=== PATIENT | female | born 1940 | race Caucasian/White ===

== ENCOUNTER 2020-03-12 09:35 | Emergency (ER) | payer OTHER ==
[2020-03-12] MEDS ORDERED: IPRATROPIUM BROM 0.5MG/2.5ML ONE ×2 (10:32→12:19)
[2020-03-12] MEDS ORDERED: METHYLPREDNISOLONE 125 MG INJ ONE (10:32)
[2020-03-12] MEDS ORDERED: LEVALBUTEROL 1.25 MG/3 ML NEB ONE (10:33)
--- NOTE | 2020-03-12 10:54 | RAD REPORT ---
EXAM DESCRIPTION: RAD - Chest Single View - 03/12/2020 10:34 am CLINICAL HISTORY: Cough;Dyspnea COMPARISON: July 2016 TECHNIQUE: AP portable chest image was obtained 03/12/2020 10:34 am . FINDINGS: No focal lung parenchymal process. Interstitial pattern matches comparison. Heart and vasc ulature are normal. No measurable pleural effusion and no pneumothorax. No acute bony abnormality see n. No acute aortic findings suspected. IMPRESSION: No acute cardiopulmonary process. No significant interval change.
[2020-03-12 12:49] LABS: Absolute Lymphocytes (CBC) 1.4 K/uL (0.7-4.9); Basophils % 1.2 % (0-1.3); Hematocrit 39.9 % (36.0-45.0); Lymphocytes % 14.5 % (15.3-44.8); MPV 9.4 fL (7.6-11.3); RBC Red Blood Cell Count 4.49 M/uL (3.86-4.86)
[2020-03-12 13:04] LABS: BUN Blood Urea Nitrogen 16 mg/dL (7-18); Bicarbonate 25 mmol/L (21-32); Glucose Level 142 mg/dL (74-106); Potassium 3.6 mmol/L (3.5-5.1); Sodium Level 137 mmol/L (136-145); Troponin (Emerg Dept Use Only) < 0.02 ng/mL (0.0-0.045)
--- NOTE | 2020-03-12 13:26 | ER ---
Nurse's Notes [facility] Name: Felicia Martinez Age: 79 yrs Sex: Female : 1940 Arrival Date: 03/12/2020 Time: 09:35 Bed 6 Private MD: Diagnosis: Dyspnea, unspecified Presentation: 03/12 09:55 Chief complaint: Patient states: hx of asthma, SOB X past two nights, also has mild iw cough. Coronavirus screen: cough unrelated to allergies, runny nose, shortness of breath, Client presents with at least one sign or symptom that may indicate coronavirus-19. Standard/surgical mask placed on the client. Provider contacted for isolation considerations. Ebola Screen: Patient negative for fever greater than or equal to 101.5 degrees Fahrenheit, and additional compatible Ebola Virus Disease symptoms Patient denies exposure to infectious person. Patient denies travel to an Ebola-affected area in the 21 days before illness onset. No symptoms or risks identified at this time. Initial Sepsis Screen: Does the patient have a suspected source of infection?. Risk Assessment: Do you want to hurt yourself or someone else? Patient reports no desire to harm self or others. 09:55 Method Of Arrival: Ambulatory iw 09:55 Acuity: BRYANNA 3 iw 09:55 Initial Sepsis Screen: Does the patient meet any 2 criteria? RR > 20 per min. HR > 90 rb1 bpm. Yes. Note Pt. reports that it is her Asthma, denies being sick. Onset of symptoms was March 10, 2020. Historical: - Allergies: 09:58 PENICILLINS; iw 09:58 tramadol; iw - PMHx: 09:58 Asthma; iw - Immunization history:: Adult Immunizations up to date. - Family history:: not pertinent. - Social history:: Smoking status: Patient/guardian denies using. - Hospitalizations: : No recent hospitalization is reported. Screenin:55 Abuse screen: Denies threats or abuse. Nutritional screening: No deficits noted. rb1 Tuberculosis screening: No symptoms or risk factors identified. Fall Risk None identified. Assessment: 09:55 General: Appears in no apparent distress. comfortable, Behavior is calm, cooperative. rb1 Pain: Denies pain. Neuro: Level of Consciousness is awake, alert, obeys commands, Oriented to person, place, time, situation. Cardiovascular: Patient's skin is warm and dry. Respiratory: Reports shortness of breath at rest Airway is patent Respiratory effort is even, Respiratory pattern is regular. GI: Reports diarrhea, This is the pt. norm after having her gallbladder removed. : No signs and/or symptoms were reported regarding the genitourinary system. 10:30 Reassessment: Patient appears in no apparent distress at this time. No changes from rb1 previously documented assessment. 11:27 Reassessment: Patient appears in no apparent distress at this time. Patient and/or rb1 family updated on plan of care and expected duration. Pain level reassessed. Patient is alert, oriented x 3, equal unlabored respirations, skin warm/dry/pink. Patient denies pain at this time. 12:25 Reassessment: Patient appears in no apparent distress at this time. No changes from rb1 previously documented assessment. Vital Signs: 09:55 BP 183 / 90; Pulse 114; Resp 22 S; Temp 98.8; Pulse Ox 95% on R/A; iw 10:47 BP 117 / 67; Pulse 90; Resp 20; Pulse Ox 99% on Nebulizer Mask; rb1 11:46 BP 142 / 90; Pulse 96; Resp 19; Pulse Ox 97% ; rb1 13:15 BP 139 / 87; Pulse 95; Resp 17; Pulse Ox 97% ; jl7 ED Course: 09:35 Patient arrived in ED. ag5 09:50 Fredrick Damian MD is Attending Physician. rn 09:55 Patient has correct armband on for positive identification. Bed in low position. Call rb1 light in reach. Side rails up X 1. Pulse ox on. NIBP on. 09:58 Triage completed. iw 09:58 Arm band placed on. iw 10:02 Maribell Meade, RN is Primary Nurse. rb1 10:35 XRAY Chest (1 view) In Process Unspecified. EDMS 13:34 No provider procedures requiring assistance completed. IV discontinued, intact, jl7 bleeding controlled, No redness/swelling at site. Pressure dressing applied. Administered Medications: 10:26 Drug: Xopenex (3) 1.25 mg Route: Inhalation; rb1 13:35 Follow up: Response: No adverse reaction jl7 10:26 Drug: AtroVENT Aerosol 0.5 mg Route: Inhalation; rb1 13:35 Follow up: Response: No adverse reaction jl7 10:35 Drug: SOLU-Medrol 125 mg Route: IM; Site: left gluteus; rb1 13:35 Follow up: Response: No adverse reaction jl7 10:41 Not Given (Pt. refused IV; provider changed order to IM): SOLU-Medrol 125 mg IVP once rb1 12:11 Drug: AtroVENT Aerosol 0.5 mg Route: Inhalation; rb1 13:35 Follow up: Response: No adverse reaction jl7 Outcome: 13:25 Discharge ordered by . rn 13:34 Discharged to home ambulatory. jl7 13:34 Condition: stable 13:34 Discharge instructions given to patient, Instructed on discharge instructions, follow up and referral plans. medication usage, Demonstrated understanding of instructions, follow-up care, medications, Prescriptions given X 2. 13:36 Patient left the ED. jl7 Addendum: 03/13/2020 14:50 Addendum: COVID-19 Result: Negative result given to RN to notify pt. Notified pt of s s negative COVID 19 swab results. Pt advised that even with a negative test result they should remain in isolation until symptom free for 3 days without medication. Pt also advised to return to the ED for worsening symptoms. Signatures: Dispatcher [employer] EDMS Blanca Bonilla, Fredrick Tanner RN, MD MD rn Smirch, Shelby, RN RN ss Barber, Rebecca, RN RN rb1 Danielle Nunes RN RN jl7 Karlo Prater ag5
--- NOTE | 2020-03-12 13:26 | EDPHYS ---
Physician Documentation [facility] Name: Felicia Martinez Age: 79 yrs Sex: Female : 1940 Arrival Date: 03/12/2020 Time: 09:35 Bed 6 Private MD: ED Physician Fredrick Damian HPI: 03/12 10:26 This 79 yrs old Female presents to ER via Ambulatory with complaints of rn Asthma Exacerbation. 10:26 The patient presents to the emergency department with wheezing, Current therapy: rn albuterol inhaler. 10:28 Onset: The symptoms/episode began/occurred 2 day(s) ago. Modifying factors: The rn symptoms are alleviated by nothing, the symptoms are aggravated by exertion. Severity of symptoms: At their worst the symptoms were moderate in the emergency department the symptoms are unchanged. The patient has experienced similar episodes in the past. The patient has not recently seen a physician. Reports cleaning up rental home recently, started with cough/congestion/runny nose, + sob and wheezing, feels like asthma exacerbation. No fever. Has been isolated except for groceries. . Historical: - Allergies: 09:58 PENICILLINS; iw 09:58 tramadol; iw - PMHx: 09:58 Asthma; iw - Immunization history:: Adult Immunizations up to date. - Family history:: not pertinent. - Social history:: Smoking status: Patient/guardian denies using. - Hospitalizations: : No recent hospitalization is reported. ROS: 10:28 Constitutional: Negative for fever, chills, and weight loss, Eyes: Negative for injury, rn pain, redness, and discharge, ENT: + nasal congestion Neck: Negative for injury, pain, and swelling, Cardiovascular: Negative for chest pain, palpitations, and edema, Respiratory: Negative for pleuritic chest pain Abdomen/GI: Negative for abdominal pain, nausea, vomiting, diarrhea, and constipation, MS/Extremity: Negative for injury and deformity, Skin: Negative for injury, rash, and discoloration, Neuro: Negative for headache, weakness, numbness, tingling, and seizure. Exam: 10:28 Constitutional: This is a well developed, well nourished patient who is awake, alert, rn and in no acute distress. Head/Face: Normocephalic, atraumatic. Eyes: Pupils equal round and reactive to light, extra-ocular motions intact. Lids and lashes normal. Conjunctiva and sclera are non-icteric and not injected. Cornea within normal limits. Periorbital areas with no swelling, redness, or edema. ENT: No stridor Cardiovascular: Tachycardic, regular Respiratory: + mild tachypnea, no retractions, faint wheezing bilaterally Abdomen/GI: soft, non-tender MS/ Extremity: Pulses equal, no cyanosis. Neurovascular intact. Full, normal range of motion. Equal circumference. Neuro: Awake and alert, GCS 15 Vital Signs: 09:55 BP 183 / 90; Pulse 114; Resp 22 S; Temp 98.8; Pulse Ox 95% on R/A; iw 10:47 BP 117 / 67; Pulse 90; Resp 20; Pulse Ox 99% on Nebulizer Mask; rb1 11:46 BP 142 / 90; Pulse 96; Resp 19; Pulse Ox 97% ; rb1 13:15 BP 139 / 87; Pulse 95; Resp 17; Pulse Ox 97% ; jl7 MDM: 09:50 Patient medically screened. rn 13:20 Differential diagnosis: acute asthma, CHF, cardiac equivalent. Data reviewed: vital rn signs, nurses notes, lab test result(s), EKG, radiologic studies, plain films, and as a result, I will admit patient. Counseling: I had a detailed discussion with the patient and/or guardian regarding: the historical points, exam findings, and any diagnostic results supporting the discharge/admit diagnosis, lab results, radiology results, the need for further work-up and treatment in the hospital. Response to treatment: the patient's symptoms have mildly improved after treatment, and as a result, I will admit patient. 13:20 Special discussion:. ED course: Pt better, but not back to baseline, nonspecific t wave rn inversions lateral leads, neg trop, recommend observation overnight for cardiac workup adn continued asthma therapy, but patient declines. Wants to go home, she feels like just asthma, spoke with her at length about cardiac equivalents and especially in women. . 03/12 09:56 Order name: COVID-19 rn 03/12 11:54 Order name: CBC with Diff; Complete Time: 13:15 rn 03/12 09:56 Order name: XRAY Chest (1 view); Complete Time: 10:57 rn 03/12 11:54 Order name: Basic Metabolic Panel; Complete Time: 13:15 rn 03/12 11:54 Order name: Troponin (emerg Dept Use Only); Complete Time: 13:15 rn 03/12 09:56 Order name: EKG; Complete Time: 09:56 rn 03/12 09:56 Order name: EKG - Nurse/Tech; Complete Time: 10:39 rn Administered Medications: 10:26 Drug: Xopenex (3) 1.25 mg Route: Inhalation; rb1 13:35 Follow up: Response: No adverse reaction jl7 10:26 Drug: AtroVENT Aerosol 0.5 mg Route: Inhalation; rb1 13:35 Follow up: Response: No adverse reaction jl7 10:35 Drug: SOLU-Medrol 125 mg Route: IM; Site: left gluteus; rb1 13:35 Follow up: Response: No adverse reaction jl7 10:41 Not Given (Pt. refused IV; provider changed order to IM): SOLU-Medrol 125 mg IVP once rb1 12:11 Drug: AtroVENT Aerosol 0.5 mg Route: Inhalation; rb1 13:35 Follow up: Response: No adverse reaction jl7 Disposition: 03/12/20 13:25 Discharged to Home. Impression: Dyspnea, unspecified. - Condition is Stable. - Discharge Instructions: Shortness of Breath. - Prescriptions for Prednisone 20 mg Oral Tablet - take 3 tablet by ORAL route once daily for 5 days; 15 tablet. Albuterol Sulfate 90 mcg/actuation - inhale 1-2 puff by INHALATION route every 4-6 hours; 1 Inhaler. - Medication Reconciliation Form, Thank You Letter, Antibiotic Education, Prescription Opioid Use form. - Follow up: Private Physician; When: As needed; Reason: Recheck today's complaints, Re-evaluation by your physician. - Problem is new. - Symptoms have improved. Signatures: Dispatcher [employer] EDMS Blanca Bonilla RN RN iw Fredrick Damian MD MD rn Barber, Rebecca, RN RN rb1 Danielle Nunes RN RN jl7 Corrections: (The following items were deleted from the chart) 10:30 10:28 Constitutional: Negative for fever, chills, and weight loss, Eyes: Negative for rn injury, pain, redness, and discharge, Neck: Negative for injury, pain, and swelling, Cardiovascular: Negative for chest pain, palpitations, and edema, Respiratory: Negative for pleuritic chest pain Abdomen/GI: Negative for abdominal pain, nausea, vomiting, diarrhea, and constipation, MS/Extremity: Negative for injury and deformity, Skin: Negative for injury, rash, and discoloration, Neuro: Negative for headache, weakness, numbness, tingling, and seizure, rn 10:39 09:56 IV Saline Lock ordered. rn rb1 13:36 13:25 03/12/2020 13:25 Discharged to Home. Impression: Dyspnea, unspecified. Condition jl7 is Stable. Forms are Medication Reconciliation Form, Thank You Letter, Antibiotic Education, Prescription Opioid Use. Follow up: Private Physician; When: As needed; Reason: Recheck today's complaints, Re-evaluation by your physician. Problem is new. Symptoms have improved. rn
[2020-03-12 13:51] VITALS: TEMP 98.8
[2020-03-12 13:55] VITALS: O2SAT 97
[2020-03-12 13:56] VITALS: BP 139/87
--- OUTSIDE RECORDS SUMMARY | 2020-03-13 02:22 | XMS REPORT | Continuity of Care Document ---
:1940 Author Organization [facility] t Address [address] [place] [address] [address]. [address]. [address] [place] [address] Care Team Providers Name Role Phone Antione ROQUE, A Attending Clinician Doctor Unassigned, Name Attending Clinician Unavailable Antione ROQUE, A Admitting Clinician Problems This patient has no known problems. Allergies, Adverse Reactions, Alerts This patient has no known allergies or adverse reactions. Medications This patient has no known medications. Procedures This patient has no known procedures. Encounters Start End Encounter Admission Attending Care Care Encounter Source Date/Time Date/Time Type Type Clinicians Facility Department ID 2019-06-19 2019-06-19 [facility] [id number] 09:48:00 12:02:00 Encounter Nicola Read [id number] [place] [id number] Surgical [id number] [place] 071 2019-06-18 2019-06-18 Orders Doctor VASQUEZ [id number] 00:00:00 00:00:00 Only Unassigned, BILL [id number] [place] [facility] [id number] [id number] Results This patient has no known results.
== END 2020-03-12 13:36 | disposition home or self-care (01) ==
LOC: ER 09:35
DX: R06.00 Dyspnea, unspecified (principal); Z20.828 Contact with and (suspected) exposure to other viral communicable diseases; J45.909 Unspecified asthma, uncomplicated; Z88.0 Allergy status to penicillin; Z88.5 Allergy status to narcotic agent
CPT/HCPCS: 93005; 85025; 80048; 36415; 84484; 71045; 96372; 99284; U0002; J2930

== ENCOUNTER → 2023-06-12 | Emergency (ER) | payer OTHER ==
[~2023-06-12] MED LIST: ACETAMINOPHEN 500 MG TAB ONE; FENTANYL CITR 100 MCG/2 ML ONE; NA CHLORIDE 0.9% 1,000 ML ONE; OXYMETAZOLINE HCL 0.05% 15ML NAS ONE; TRANEXAMIC ACID 1,000 MG/10 ML VIAL IV ONE
--- OUTSIDE RECORDS SUMMARY | 2023-06-12 11:07 | XMS REPORT | Continuity of Care Document ---
Author Name Unknown Address [address] [place] [address] [facility] thconnect Address [address] [place] [address] Care Team Providers Care Hand Candle Molder Name Role Phone YARED VAZQUEZ Primary Care Physician ANGEL Keene Attending Clinician Unavailable Angel Campbell DO Attending Clinician [phone] Doctor Unassigned, [place] Attending Clinician U Nicola Branham MD Attending Clinician [phone] ANGEL CAMPBELL Admitting Clinician Unavailable Nicola Talbot MD Admitting Clinician [phone] Payers Payer Name Policy Type Policy Number Effective Date Expirati on Date Source [facility] [id number] 2021 00:00:00 Problems Condition Name Condition Details Condition Category Status Onset Date Resolution Date Last Treatment Date Treating Clinician Comments Source No known active problems No known active problems Disease [facility] Allergies, Adverse Reactions, Alerts Allergy Name Allergy Type Status Severity Reaction(s) Onset Date Inactive Date Treating Clinician Comments Source Adhesive Tape-Elva icones Propensi ty to adverse reaction s Active Rash 06-19 00:00: 00 [facility] ADHESIVE TAPE-ELVA ICONES DRUG Active Med Rash 06-19 00:00: 00 [facility] TRAMADOL DRUG INGREDI Active High ITCHING 2018-06 00:00: 00 [facility] PENICILL INS Drug Class Active Med Swelling 2018-06 00:00: 00 [facility] Penicill ins Propensi ty to adverse reaction s Active Swelling 2018-06 00:00: 00 Itching [facility] Tramadol Propensi ty to adverse reaction s Active Itching 2018-06 00:00: 00 [facility] Social History Social Habit Start Date Stop Date Quantity Comments Source Exposure to SARS-CoV-2 (event) 2022-04-03 00:00:00 2022-04-13 14:46:00 Not sure [facility] Tobacco use and exposure 2019-05-20 00:00:00 2019-05-20 00:00:00 Smokeless tobacco non-user [facility] Sex Assigned At 1940 00:00:00 1940 00:00:00 [facility] Smoking Status Start Date Stop Date Source Never smoked tobacco [facility] Medications Ordered Medication Name Filled Medication Name Start Date Stop Date Current Medication? Ordering Clinician Indication Dosage Frequency Signature (SIG) Comments Components Source iopamidol (ISOVUE 370-500 mL) injection 75 mL 2021-06 23:00: 00 04-13 23:00 :00 No [id number] 75mL 75 mL, Intravenou s, ONCE, 1 dose, On Mon04/13/22 at 1700, Routine [facility] ondansetron (ZOFRAN (PF)) injection 4 mg 2021-06 20:30: 00 04-13 20:52 :00 No 4mg 4 mg, Slow IV Push, ONCE, 1 dose, On Mon04/13/22 at 1430, Routine [facility] Simethicone 125 mg 2021-06 00:00: 00 05-14 05:59 :00 No [id number] 125mg Take 1 capsule by mouth after meals and at bedtime as needed for Gas for up to 30 days. [facility] fenofibrate 145 mg tablet 06-19 12:02: 18 Yes 145mg Take 145 mg by mouth daily. [facility] amLODIPine 10 mg tablet 06-19 12:02: 18 Yes 10mg Take 10 mg by mouth daily. [facility] benazepril 20 mg tablet 06-19 12:02: 18 Yes 20mg Take 20 mg by mouth daily. [facility] Levothyroxi ne 125 mcg capsule 06-19 12:02: 18 Yes Take by mouth. [facility] Multivitami ns with Fluoride (MULTI-JAYNE MIN ORAL) 06-19 12:02: 18 Yes Take by mouth. [facility] cholecalcif ross, vitamin D3, (D-3-5 ORAL) 06-19 12:02: 18 Yes Take by mouth. [facility] febuxostat (ULORIC) 80 mg tablet 06-19 12:02: 18 Yes 80mg Take 80 mg by mouth daily. [facility] fenofibrate 145 mg tablet 06-19 12:02: 18 Yes 145mg Take 145 mg by mouth daily. [facility] amLODIPine 10 mg tablet 06-19 12:02: 18 Yes 10mg Take 10 mg by mouth daily. [facility] benazepril 20 mg tablet 06-19 12:02: 18 Yes 20mg Take 20 mg by mouth daily. [facility] Levothyroxi ne 125 mcg capsule 06-19 12:02: 18 Yes Take by mouth. [facility] Multivitami ns with Fluoride (MULTI-JAYNE MIN ORAL) 06-19 12:02: 18 Yes Take by mouth. [facility] cholecalcif ross, vitamin D3, (D-3-5 ORAL) 06-19 12:02: 18 Yes Take by mouth. [facility] febuxostat (ULORIC) 80 mg tablet 06-19 12:02: 18 Yes 80mg Take 80 mg by mouth daily. [facility] Vital Signs Vital Name Observation Time Observation Value Comments Celina cisse Systolic blood pressure 2022-04-13 23:00:00 133 mm[Hg] [facility] Diastolic blood pressure 2022-04-13 23:00:00 54 mm[Hg] [facility] Heart rate 2022-04-13 23:00:00 62 /min [facility] Respiratory rate 2022-04-13 23:00:00 13 /min [facility] Oxygen saturation in Arterial blood by Pulse oximetry 2022-04-13 23:00:00 95 /min [place] [facility] Body temperature 2022-04-13 19:31:00 36.89 Lynnette [facility] Body weight 2022-04-13 19:31:00 67.132 kg [facility] BMI 2022-04-13 19:31:00 27.07 kg/m2 [facility] Procedures Procedure Date / Time Performed Performing Clinicia n Source CT ABDOMEN PELVIS W CONTRAST 2022-04-13 21:58:00 Angel Campbell [facility] LIPASE 2022-04-13 20:44:00 [facility] COMP. METABOLIC PANEL (41394) 2022-04-13 20:44:00 Angel Campbell [facility] CBC WITH DIFF 2022-04-13 20:44:00 Angel Campbell [facility] URINALYSIS 2022-04-13 20:44:00 [facility] CONSENT/REFUSAL FOR DIAGNOSIS AND TREATMENT 2022-04-13 19:12:48 Doctor Unassigned, [place] [facility] Encounters Start Date/Time End Date/Time Encounter Type Admission Type Attending [facility] Care Facility Care Department Encounter ID Source 2022-04-13 13:33:00 2022-04-13 17:15:00 Emergency X ANGEL CAMPBELL [facility] ERT [id number] [facility] 2022-04-13 13:33:00 2022-04-13 17:15:00 Emergency Angel Campbell [facility] [id number] [facility] 2022-04-13 00:00:00 2022-04-13 00:00:00 Orders Only Doctor Unassigned, [place] [facility] [id number] [id number] [id number] [facility] 2019-06-19 09:48:00 2019-06-19 12:02:00 Hospital Encounter Nicola Talbot [facility] [id number] [id number] [id number] 2019-06-18 00:00:00 2019-06-18 00:00:00 Orders Only Doctor Unassigned, [place] [facility] [id number] [id number] [id number] Results Test Description Test Time Test Comments Results Result Co mments Source [facility] 21:46:00* Test Item Value Reference Range Interpretation Comme nts LIPASE (test code = 1197420344) 148 U/L 0-220 Lab Interpretation (test cod e = 45375-4) Normal [facility] WITH [id number] 21:15:53* Test Item Value Reference Range Interpretation Comme nts WBC (test code = 6690-2) See_Comment L [Automated messa ge] The system which generated this result transmitted reference range: 4.30 - 11.10 10*3/?L. The reference range was not used to interpret this result as normal/abnormal. RBC (test code = 789-8) See_Comment [Automated messa ge] The system which generated this result transmitted reference range: 3.93 - 5.25 10*6/?L. The reference range was not used to interpret this result as normal/abnormal. HGB (test code = 718-7) 13.8 g/dL 11.6-15.0 HCT (test code = 4544-3) 40.6 % 35.7-45.2 MCV (test code = 787-2) 87.1 fL 80.6-95.5 MCH (test code = 785-6) 29.6 pg 25.9-32.8 MCHC (test code = 786-4) 34.0 g/dL 31.6-35.1 RDW-SD (test code = 54064-6) 40.3 fL 39.0-49.9 RDW-CV (test code = 788-0) 12.8 % 12.0-15.5 PLT (test code = 777-3) See_Comment [Automated messa ge] The system which generated this result transmitted reference range: 166 - 358 10*3/?L. The reference range was not used to interpret this result as normal/abnormal. MPV (test code = 45716-4) 11.0 fL 9.5-12.9 NRBC/100 WBC (test code = 9356697936) See_Comment [Automated [employer] ssage] The system which generated this result transmitted reference range: 0.0 - 10.0 /100 WBCs. The reference range was not used to interpret this result as normal/abnormal. NRBC x10^3 (test code = 6101442650) See_Comment [Automated messa ge] The system which generated this result transmitted reference range: 10*3/?L. The reference range was not used to interpret this result as normal/abnormal. GRAN MAT (NEUT) % (test code = 770-8) 68.2 % IMM GRAN % (test code = 4661451658) 0.30 % LYMPH % (test code = 736-9) 20.7 % MONO % (test code = 5905-5) 9.5 % EOS % (test code = 713-8) 0.5 % BASO % (test code = 706-2) 0.8 % GRAN MAT x10^3(ANC) (test code = 7392486540) 2.50 10*3/uL 1.88-7.09 IMM GRAN x10^3 (test code = 5754195787) 0.00-0.06 LYMPH x10^3 (test code = 731-0) 0.76 10*3/uL 1.32-3.29 L MONO x10^3 (test code = 742-7) 0.35 10*3/uL 0.33-0.92 EOS x10^3 (test code = 711-2) 0.03-0.39 L BASO x10^3 (test code = 704-7) 0.03 10*3/uL 0.01-0.07 Lab Interpretation (test code = 46140-0) Abnormal [facility]
[2023-06-12 11:58] LABS: Absolute Lymphocytes (CBC) 1.3 K/uL (0.7-4.9); Hematocrit 37.3 % (36.0-45.0); Lymphocytes % 18.3 % (15.3-44.8); MCV 88.2 fL (80-100); MPV 8.8 fL (7.6-11.3); Platelets 320 thou/uL (152-406); RBC Red Blood Cell Count 4.23 M/uL (3.86-4.86)
[2023-06-12 12:06] LABS: Protime INR 1.1
[2023-06-12 12:10] LABS: Potassium 3.4 mEq/L (3.5-5.1)
--- NOTE | 2023-06-12 12:14 | RAD REPORT ---
EXAM DESCRIPTION: CT - CTFB CLINICAL HISTORY: FACIAL PAIN Fall, trauma, pain COMPARISON: No comparisons TECHNIQUE: Axial 2 mm thick images of the face were obtained with sagittal and coronal reconstructio n images. All CT scans are performed using dose optimization technique as appropriate and may include automated exposure control or mA/KV adjustment according to patient size. FINDINGS: There is a minimal distal nasal bone fracture seen, slightly greater on the left. No addit ional facial fracture is evident.The mandible is intact. The globes and orbital contents are grossly unremarkable.The paranasal sinuses and mastoids are clear . Soft tissue density in the nasal airway may blood product. IMPRESSION: Minimal distal nasal bone fracture seen.
--- NOTE | 2023-06-12 17:08 | ER ---
Nurse's Notes [facility] Name: Felicia Martinez Age: 83 yrs Sex: Female : 1940 Arrival Date: 06/12/2023 Time: 11:05 Bed 11 Private MD: Diagnosis: Epistaxis;Fracture of nasal bones Presentation: 06/12 11:11 Chief complaint: Patient states: "I was walking, tripped and fell on my nose and hit my mb9 lip and teeth. My nose hasn't stopped bleeding. I'm not on any blood thinners and I didn't lose consciousness.". Coronavirus screen: Vaccine status: Patient reports receiving the 2nd dose of the covid vaccine. Ebola Screen: No symptoms or risks identified at this time. Initial Sepsis Screen: Does the patient meet any 2 criteria? No. Patient's initial sepsis screen is negative. Does the patient have a suspected source of infection? No. Patient's initial sepsis screen is negative. Risk Assessment: Do you want to hurt yourself or someone else? Patient reports no desire to harm self or others. Onset of symptoms was June 12, 2023. 11:11 Method Of Arrival: Wheelchair mb9 11:11 Acuity: BRYANNA 3 mb9 Triage Assessment: 11:13 General: Appears uncomfortable, Behavior is calm, cooperative. Pain: Complains of pain mb9 in nose. EENT: Nares with bleeding noted bilaterally. Neuro: Ramirez Agitation-Sedation Scale (RASS): 0 - Alert and Calm Level of Consciousness is awake, alert, obeys commands, Oriented to person, place, time, situation, Appropriate for age Pupils are PERRLA. Cardiovascular: Patient's skin is warm and dry. Respiratory: Airway is patent Respiratory effort is even, unlabored, Respiratory pattern is regular, symmetrical. GI: Patient currently denies nausea, vomiting. : No signs and/or symptoms were reported regarding the genitourinary system. Derm: Skin is pink, warm \\T\\ dry. Musculoskeletal: Range of motion: intact in all extremities. Historical: - Allergies: 11:10 PENICILLINS; mb9 11:10 tramadol; mb9 - Home Meds: 11:10 amlodipine oral [Active]; mb9 - PMHx: 11:10 Asthma; Hypertensive disorder; mb9 - PSHx: 11:10 hernia; mb9 - Immunization history:: Adult Immunizations up to date. - Social history:: Smoking status: Patient denies any tobacco usage or history of. Screenin:14 [facility] ED Fall Risk Assessment (Adult) History of falling in the last 3 months, mb9 including since admission Yes- single mechanical fall (1 pt) Confusion or Disorientation No (0 pts) Intoxicated or Sedated No (0 pts) Impaired Gait No (0 pts) Mobility Assist Device Used No (0 pt) Altered Elimination No (0 pt) Score/Fall Risk Level 0 - 2 = Low Risk Oriented to surroundings, Maintained a safe environment, Educated pt \\T\\ family on fall prevention, incl call for assistance when getting out of bed. Abuse screen: Denies threats or abuse. Nutritional screening: No deficits noted. Tuberculosis screening: No symptoms or risk factors identified. Assessment: 11:14 Reassessment: see triage assessment. mb9 11:14 Reassessment: nose clamp applied to pt. mb9 Vital Signs: 11:11 BP 153 / 138; Pulse 92; Resp 18; Temp 97.5; Pulse Ox 100% ; Weight 79.38 kg; Height 5 mb9 ft. 3 in. ; 11:35 BP 147 / 79; Pulse 90; Pulse Ox 100% on R/A; mb9 12:31 BP 147 / 73; Pulse 80; Resp 18; Pulse Ox 96% ; Pain 5/10; tl4 13:00 BP 152 / 67; Pulse 69; Resp 18; Pulse Ox 98% on R/A; tl4 14:00 BP 152 / 79; Pulse 75; Resp 18; Pulse Ox 96% on R/A; tl4 15:08 BP 147 / 79; Pulse 72; Resp 16; Pulse Ox 97% ; Pain 8/10; tl4 16:00 BP 164 / 63; Pulse 73; Resp 18; Pulse Ox 97% on R/A; tl4 18:56 BP 160 / 70; Pulse 74; Resp 18; Pulse Ox 96% on R/A; tl4 11:11 Body Mass Index 31.00 (79.38 kg, 160.02 cm) mb9 12:31 Pain Scale: Adult tl4 15:08 Pain Scale: Adult tl4 ED Course: 11:06 Patient arrived in ED. rg4 11:10 Kathe Hannah RN is Primary Nurse. mb9 11:11 Arm band placed on. mb9 11:13 Triage completed. mb9 11:14 Placed in gown. Bed in low position. Call light in reach. Side rails up X 1. Client mb9 placed on continuous cardiac and pulse oximetry monitoring. NIBP monitoring applied. 11:28 Ritu Aggarwal PA-C is PHCP. sb4 11:28 Ameya Loepz DO is Attending Physician. sb4 11:47 Basic Metabolic Panel Sent. mb9 11:47 CBC with Diff Sent. mb9 11:47 Inserted saline lock: 22 gauge in right antecubital area, using aseptic technique. mb9 11:51 CT Facial Bones W/O Con In Process Unspecified. EDMS 12:18 Provided Education on: ED procedure. tl4 12:18 No provider procedures requiring assistance completed. tl4 18:55 IV discontinued, intact, bleeding controlled, No redness/swelling at site. Pressure tl4 dressing applied. Administered Medications: 12:30 Drug: NS 0.9% IV 1000 ml IV at 1 bolus Per protocol; 1000 mL bolus Route: IV; Rate: 1 tl4 bolus; Site: right antecubital; Delivery: Primary tubing; 16:17 Follow up: Response: No adverse reaction; IV Status: Completed infusion; IV Intake: tl4 1000ml 14:35 Drug: Oxymetazoline Intranasal Drops (0.05 %) 1 sprays Intranasal once Route: tl4 Intranasal; Site: both nares; 15:02 Follow up: Response: No adverse reaction tl4 14:36 Not Given (Patient Refused): [id number] mg PO once tl4 15:01 Drug: fentaNYL (PF) IVP 25 mcg IVP once Route: IVP; Infused Over: 2 mins; Site: right tl4 antecubital; 16:16 Follow up: Response: Pain is decreased tl4 16:18 Drug: tranexamic acid 1 application Topical once {Note: left nare.} Route: Topical; iw Site: affected area; 16:34 Follow up: Response: No adverse reaction tl4 Medication: 11:14 VIS not applicable for this client. mb9 Intake: 16:17 IV: 1000ml; Total: 1000ml. tl4 Outcome: 17:07 Discharge ordered by . sb4 18:55 Discharged to home via wheelchair, with family, tl4 18:55 Condition: stable 18:55 Discharge instructions given to patient, Instructed on discharge instructions, follow up and referral plans. medication usage, Demonstrated understanding of instructions, follow-up care, medications, 18:56 Patient left the ED. tl4 Signatures: Dispatcher [employer] Blanca Amanda, RN Roselyn Ray rg4 Ritu Aggarwal, PALivier PALivier sb4 Kathe Hannah RN RN mb9 Bashir Gallegos tl4 Corrections: (The following items were deleted from the chart) 11:47 11:47 PTT, ACTIVATED+COAG.LAB.BRZ drawn and sent. danuta MCCARTHY
--- NOTE | 2023-06-12 17:08 | EDPHYS ---
Physician Documentation [facility] Name: Felicia Martinez Age: 83 yrs Sex: Female : 1940 Arrival Date: 06/12/2023 Time: 11:05 Bed 11 Private MD: ED Physician Ameya Lopez HPI: 06/12 11:42 This 83 yrs old Female presents to ER via Wheelchair with complaints of Fall Injury, sb4 nose bleed. 11:42 patient [place] her face. she did not lose sb4 consciousness nor is she on blood thinners but she states that she does bleed very easily. she states her nose immediately started bleeding out of her nares and down the back of her throat. she complains of nasal pain and upper lip pain. Historical: - Allergies: 11:10 PENICILLINS; mb9 11:10 tramadol; mb9 - Home Meds: 11:10 amlodipine oral [Active]; mb9 - PMHx: 11:10 Asthma; Hypertensive disorder; mb9 - PSHx: 11:10 hernia; mb9 - Immunization history:: Adult Immunizations up to date. - Social history:: Smoking status: Patient denies any tobacco usage or history of. ROS: 11:42 Constitutional: Negative for fever, chills, and weight loss, sb4 11:42 ENT: Positive for injury or acute deformity, contusion, nose bleed, 11:42 All other systems are negative, Exam: 11:42 Constitutional: This is a well developed, well nourished patient who is awake, alert, sb4 and in no acute distress. Eyes: Extra-ocular motions intact. Periorbital areas with no swelling, redness, or edema. Cardiovascular: Regular rate and rhythm with a normal S1 and S2. Respiratory: Lungs have equal breath sounds bilaterally, clear to auscultation and percussion. No rales, rhonchi or wheezes noted. No increased work of breathing, no retractions or nasal flaring. Abdomen/GI: Soft, non-tender, no distension. Skin: Warm, dry with normal turgor. Normal color with no rashes, no lesions, and no evidence of cellulitis. MS/ Extremity: Pulses equal, no cyanosis. Neurovascular intact. Full, normal range of motion. Neuro: Awake and alert, GCS 15, oriented to person, place, time, and situation. Motor strength 5/5 in all extremities. Sensory grossly intact. 11:42 Head/Face: Normocephalic, atraumatic. 11:42 ENT: Nose: bleeding, is noted from both nares, and is moderate, no septal hematoma is appreciated, clotted blood, in left nare, Mouth: Lips: lacerated, approximately 1 cm(s), upper lip, Vital Signs: 11:11 BP 153 / 138; Pulse 92; Resp 18; Temp 97.5; Pulse Ox 100% ; Weight 79.38 kg; Height 5 mb9 ft. 3 in. ; 11:35 BP 147 / 79; Pulse 90; Pulse Ox 100% on R/A; mb9 12:31 BP 147 / 73; Pulse 80; Resp 18; Pulse Ox 96% ; Pain 5/10; tl4 13:00 BP 152 / 67; Pulse 69; Resp 18; Pulse Ox 98% on R/A; tl4 14:00 BP 152 / 79; Pulse 75; Resp 18; Pulse Ox 96% on R/A; tl4 15:08 BP 147 / 79; Pulse 72; Resp 16; Pulse Ox 97% ; Pain 8/10; tl4 16:00 BP 164 / 63; Pulse 73; Resp 18; Pulse Ox 97% on R/A; tl4 18:56 BP 160 / 70; Pulse 74; Resp 18; Pulse Ox 96% on R/A; tl4 11:11 Body Mass Index 31.00 (79.38 kg, 160.02 cm) mb9 12:31 Pain Scale: Adult tl4 15:08 Pain Scale: Adult tl4 MDM: 11:28 Patient medically screened. sb4 11:42 Differential diagnosis: epistaxis, nasal fracture, septal hematoma. sb4 17:06 Data reviewed: vital signs, nurses notes, lab test result(s), radiologic studies, I sb4 have discussed the patient's presentation/case with the attending Emergency Department Physician; and as a result, I will discharge patient. Care significantly affected by the following chronic conditions: Hypertension. Counseling: I had a detailed discussion with the patient and/or guardian regarding the historical points, exam findings, and any diagnostic results supporting the discharge/admit diagnosis, the presence of at least one elevated blood pressure reading (>120/80) during this emergency department visit, lab results, radiology results, the need for outpatient follow up, an ENT specialist. 06/12 11:37 Order name: Basic Metabolic Panel; Complete Time: 12:12 sb4 06/12 11:37 Order name: CBC with Diff; Complete Time: 12:01 sb4 06/12 11:37 Order name: PT-INR; Complete Time: 12:08 sb4 06/12 11:37 Order name: Ptt, Activated; Complete Time: 12:08 sb4 06/12 11:37 Order name: CT Facial Bones W/O Con; Complete Time: 12:16 sb4 06/12 11:37 Order name: Labs collected and sent; Complete Time: 11:47 sb4 06/12 13:55 Order name: Misc. Order: rhinorocket soaked in TXA sb4 Administered Medications: 12:30 Drug: NS 0.9% IV 1000 ml IV at 1 bolus Per protocol; 1000 mL bolus Route: IV; Rate: 1 tl4 bolus; Site: right antecubital; Delivery: Primary tubing; 16:17 Follow up: Response: No adverse reaction; IV Status: Completed infusion; IV Intake: tl4 1000ml 14:35 Drug: Oxymetazoline Intranasal Drops (0.05 %) 1 sprays Intranasal once Route: tl4 Intranasal; Site: both nares; 15:02 Follow up: Response: No adverse reaction tl4 14:36 Not Given (Patient Refused): [id number] mg PO once tl4 15:01 Drug: fentaNYL (PF) IVP 25 mcg IVP once Route: IVP; Infused Over: 2 mins; Site: right tl4 antecubital; 16:16 Follow up: Response: Pain is decreased tl4 16:18 Drug: tranexamic acid 1 application Topical once {Note: left nare.} Route: Topical; iw Site: affected area; 16:34 Follow up: Response: No adverse reaction tl4 Disposition: 18:03 I was immediately available on-site in the Emergency Department for consultation in the ms3 care of the patient. Disposition Summary: 06/12/23 17:07 Discharge Ordered Notes: Location: Home sb4 Problem: new sb4 Symptoms: have improved sb4 Condition: Stable sb4 Diagnosis - Epistaxis sb4 - Fracture of nasal bones sb4 Followup: sb4 - With: Emergency Department - When: As needed - Reason: Trouble breathing, Worsening of condition Discharge Instructions: - Discharge Summary Sheet sb4 - Nasal Fracture, Emgn-qz-Ymiq sb4 Forms: - Medication Reconciliation Form sb4 - Thank You Letter sb4 - Antibiotic Education sb4 - Prescription Opioid Use sb4 - Patient Portal Instructions sb4 - Leadership Thank You Letter sb4 Prescriptions: - azithromycin 250 mg Oral tablet - take 1 dose pack ORAL route as directed on dose pack For 250 mg dose pack: take sb4 500 mg today (day 1), then 250 mg for 4 days (days 2-5); 1 Pack; Refills: 0, Product Selection Permitted - mupirocin 2 % Topical ointment - apply 1 application TOPICAL route 2 times per day; 1 Applicator; Refills: 0, sb4 Product Selection Permitted - Diazepam 2 mg Oral Tablet - take 1 tablet ORAL route every 8 hours As needed; 20 tablet; Refills: 0, sb4 Product Selection Permitted Signatures: Dispatcher [employer] EDBlanca Craven, IRMA SOLIS iw Ameya Lopez, DO ms3 Ritu Aggarwal PA-C PA-C sb4 Kathe Hannah RN RN mb9 Bashir Gallegos tl4 Corrections: (The following items were deleted from the chart) 11:47 11:37 PTT, ACTIVATED+COAG.LAB.BRZ ordered. EDMS EDMS 13:56 13:55 Misc. Order ordered. sb4 sb4
[2023-06-12 22:51] VITALS: TEMP 97.5
[2023-06-12 23:03] VITALS: BP 160/70; O2SAT 96
== END ==
LOC: ER 11:05
DX: S02.2XXA Fracture of nasal bones, initial encounter for closed fracture (principal); R04.0 Epistaxis; I10 Essential (primary) hypertension; Z88.0 Allergy status to penicillin; Z88.5 Allergy status to narcotic agent
CPT/HCPCS: 96361; 85025; 80048; 36415; 85610; 85730; 70486; 76377; 96374; 99284; J3010; J7030

== ENCOUNTER → 2023-06-16 | Emergency (ER) | payer OTHER ==
[~2023-06-16] MED LIST changes: -ACETAMINOPHEN 500 MG TAB ONE; -FENTANYL CITR 100 MCG/2 ML ONE; +LORazepam 2 MG/ML VIAL ONE; +MORPHINE 4 MG/ML SYR ONE; -NA CHLORIDE 0.9% 1,000 ML ONE; +ONDANSETRON 4 MG/2 ML VIAL ONE; -OXYMETAZOLINE HCL 0.05% 15ML NAS ONE; -TRANEXAMIC ACID 1,000 MG/10 ML VIAL IV ONE
--- OUTSIDE RECORDS SUMMARY | 2023-06-16 12:47 | XMS REPORT | Continuity of Care Document ---
Author Name Unknown Address [address] [place] [address] [facility] thconnect Address [address] [place] [address] Care Team Providers Care Musculoskeletal Physician Name Role Phone YARED VAZQUEZ Primary Care Physician ANGEL Keene Attending Clinician Unavailable Angel Campbell DO Attending Clinician [phone] Doctor Unassigned, [place] Attending Clinician U Nicola Branham MD Attending Clinician [phone] ANGEL CAMPBELL Admitting Clinician Unavailable Nicola Talbot MD Admitting Clinician [phone] Payers Payer Name Policy Type Policy Number Effective Date Expirati on Date Source [id number] 2021 00:[facility]00 Problems Condition Name Condition Details Condition Category Status Onset Date Resolution Date Last Treatment Date Treating Clinician Comments Source No known active problems No known active problems Disease [facility] Allergies, Adverse Reactions, Alerts Allergy Name Allergy Type Status Severity Reaction(s) Onset Date Inactive Date Treating Clinician Comments Source Adhesive Tape-Elva icones Propensi ty to adverse reaction s Active Rash 06-19 00:00: 00 [facility] ADHESIVE TAPE-ELVA ICONES DRUG Active Med Rash 06-19 00:00: 00 [facility] TRAMADOL DRUG INGREDI Active High ITCHING 2018-06 00:00: 00 [facility] PENICILL INS Drug Class Active Med Swelling 2018-06 00:00: 00 [facility] Penicill ins Propensi ty to adverse reaction s Active Swelling 2018-06 00:00: 00 Itching [facility] Tramadol Propensi ty to adverse reaction s Active Itching 2018-06 00:00: 00 [facility] Social History Social Habit Start Date Stop Date Quantity Comments Source Exposure to SARS-CoV-2 (event) 2022-04-03 00:00:00 2022-04-13 14:46:00 Not sure [facility] Tobacco use and exposure 2019-05-20 00:00:00 2019-05-20 00:00:00 Smokeless tobacco non-user [facility] Sex Assigned At 1940 00:00:00 1940 00:00:00 [facility] Smoking Status Start Date Stop Date Source Never smoked tobacco [facility] Medications Ordered Medication Name Filled Medication Name Start Date Stop Date Current Medication? Ordering Clinician Indication Dosage Frequency Signature (SIG) Comments Components Source iopamidol (ISOVUE 370-500 mL) injection 75 mL 2021-06 23:00: 00 04-13 23:00 :00 No [id number] 75mL 75 mL, Intravenou s, ONCE, 1 dose, On Mon04/13/22 at 1700, Routine [facility] ondansetron (ZOFRAN (PF)) injection 4 mg 2021-06 20:30: 00 04-13 20:52 :00 No 4mg 4 mg, Slow IV Push, ONCE, 1 dose, On Mon04/13/22 at 1430, Routine [facility] Simethicone 125 mg 2021-06 00:00: 00 05-14 05:59 :00 No [id number] 125mg Take 1 capsule by mouth after meals and at bedtime as needed for Gas for up to 30 days. [facility] fenofibrate 145 mg tablet 06-19 12:02: 18 Yes 145mg Take 145 mg by mouth daily. [facility] amLODIPine 10 mg tablet 06-19 12:02: 18 Yes 10mg Take 10 mg by mouth daily. [facility] benazepril 20 mg tablet 06-19 12:02: 18 Yes 20mg Take 20 mg by mouth daily. [facility] Levothyroxi ne 125 mcg capsule 06-19 12:02: 18 Yes Take by mouth. [facility] Multivitami ns with Fluoride (MULTI-JAYNE MIN ORAL) 06-19 12:02: 18 Yes Take by mouth. [facility] cholecalcif ross, vitamin D3, (D-3-5 ORAL) 06-19 12:02: 18 Yes Take by mouth. [facility] febuxostat (ULORIC) 80 mg tablet 06-19 12:02: 18 Yes 80mg Take 80 mg by mouth daily. [facility] fenofibrate 145 mg tablet 06-19 12:02: 18 Yes 145mg Take 145 mg by mouth daily. [facility] amLODIPine 10 mg tablet 06-19 12:02: 18 Yes 10mg Take 10 mg by mouth daily. [facility] benazepril 20 mg tablet 06-19 12:02: 18 Yes 20mg Take 20 mg by mouth daily. [facility] Levothyroxi ne 125 mcg capsule 06-19 12:02: 18 Yes Take by mouth. [facility] Multivitami ns with Fluoride (MULTI-JAYNE MIN ORAL) 06-19 12:02: 18 Yes Take by mouth. [facility] cholecalcif ross, vitamin D3, (D-3-5 ORAL) 06-19 12:02: 18 Yes Take by mouth. [facility] febuxostat (ULORIC) 80 mg tablet 06-19 12:02: 18 Yes 80mg Take 80 mg by mouth daily. [facility] Vital Signs Vital Name Observation Time Observation Value Comments Celina cisse Systolic blood pressure 2022-04-13 23:00:00 133 mm[Hg] [facility] Diastolic blood pressure 2022-04-13 23:00:00 54 mm[Hg] [facility] Heart rate 2022-04-13 23:00:00 62 /min [facility] Respiratory rate 2022-04-13 23:00:00 13 /min [facility] Oxygen saturation in Arterial blood by Pulse oximetry 2022-04-13 23:00:00 95 /min [facility] Body temperature 2022-04-13 19:31:00 36.89 Lynnette [facility] Body weight 2022-04-13 19:31:00 67.132 kg [facility] BMI 2022-04-13 19:31:00 27.07 kg/m2 [facility] Procedures Procedure Date / Time Performed Performing Clinicia n Source CT ABDOMEN PELVIS W CONTRAST 2022-04-13 21:58:00 Angel Campbell [facility] LIPASE 2022-04-13 20:44:00 [facility] COMP. METABOLIC PANEL (19660) 2022-04-13 20:44:00 Angel Campbell [facility] CBC WITH DIFF 2022-04-13 20:44:00 nAgel Campbell [facility] URINALYSIS 2022-04-13 20:44:00 [facility] CONSENT/REFUSAL FOR DIAGNOSIS AND TREATMENT 2022-04-13 19:12:48 Doctor Unassigned, [place] [facility] Encounters Start Date/Time End Date/Time Encounter Type Admission Type Attending [facility] Care Facility Care Department Encounter ID Source 2022-04-13 13:33:00 2022-04-13 17:15:00 Emergency X ANGEL CAMPBELL [facility] ERT [id number] [facility] 2022-04-13 13:33:00 2022-04-13 17:15:00 Emergency Angel Campbell [facility] [id number] [facility] 2022-04-13 00:00:00 2022-04-13 00:00:00 Orders Only Doctor Unassigned, [place] [facility] [id number] [facility] 2019-06-19 09:48:00 2019-06-19 12:02:00 Hospital Encounter Nicola Talbot [facility] [id number] 2019-06-18 00:00:00 2019-06-18 00:00:00 Orders Only Doctor Unassigned, [place] [facility] [id number] Results Test Description Test Time Test Comments Results Result Co mments Source [facility] 21:46:00* Test Item Value Reference Range Interpretation Comme nts LIPASE (test code = 2547807955) 148 U/L 0-220 Lab Interpretation (test cod e = 38227-7) Normal [facility] [id number] 21:15:53* Test Item Value Reference Range Interpretation [...] 34.0 g/dL 31.6-35.1 RDW-SD (test code = 67278-9) 40.3 fL 39.0-49.9 RDW-CV (test code = 788-0) 12.8 % 12.0-15.5 PLT (test code = 777-3) See_Comment [Automated messa ge] The system which generated this result transmitted reference range: 166 - 358 10*3/?L. The reference range was not used to interpret this result as normal/abnormal. MPV (test code = 32299-7) 11.0 fL 9.5-12.9 NRBC/100 WBC (test code = 5323666284) See_Comment [Automated [employer] ssage] The system which generated this result transmitted reference range: 0.0 - 10.0 /100 WBCs. The reference range was not used to interpret this result as normal/abnormal. NRBC x10^3 (test code = 0134575396) See_Comment [Automated [employer]] The system which generated this result transmitted reference range: 10*3/?L. The reference range was not used to interpret this result as normal/abnormal. GRAN MAT (NEUT) % (test code = 770-8) 68.2 % IMM GRAN % (test code = 7815624611) 0.30 % LYMPH % (test code = 736-9) 20.7 % MONO % (test code = 5905-5) 9.5 % EOS % (test code = 713-8) 0.5 % BASO % (test code = 706-2) 0.8 % GRAN MAT x10^3(ANC) (test code = 8861545735) 2.50 10*3/uL 1.88-7.09 IMM GRAN x10^3 (test code = 7960794347) 0.00-0.06 LYMPH x10^3 (test code = 731-0) 0.76 10*3/uL 1.32-3.29 L MONO x10^3 (test code = 742-7) 0.35 10*3/uL 0.33-0.92 EOS x10^3 (test code = 711-2) 0.03-0.39 L BASO x10^3 (test code = 704-7) 0.03 10*3/uL 0.01-0.07 Lab Interpretation (test code = 37619-1) Abnormal [facility]
--- NOTE | 2023-06-16 13:32 | RAD REPORT ---
EXAM DESCRIPTION: RAD - Chest Single View - 06/16/2023 1:20 pm CLINICAL HISTORY: CHEST PAIN Chest pain. COMPARISON: <Comparisons> FINDINGS: Portable technique limits examination quality. There is a small opacity in the right lung base which may be small area of infiltrate/ pneumonia. The lungs are otherwise clear. The heart is normal in size. No displaced fractures.
[2023-06-16 13:46] LABS: Absolute Lymphocytes (CBC) 1.5 K/uL (0.7-4.9); Hematocrit 34.3 % (36.0-45.0); Lymphocytes % 17.2 % (15.3-44.8); MCV 87.6 fL (80-100); MPV 8.8 fL (7.6-11.3); Platelets 327 thou/uL (152-406); RBC Red Blood Cell Count 3.92 M/uL (3.86-4.86)
--- NOTE | 2023-06-16 13:53 | RAD REPORT ---
EXAM DESCRIPTION: CT - Chest For Pe Angio - 06/16/2023 1:45 pm CLINICAL HISTORY: Chest pain. CHEST PAIN COMPARISON: <Comparisons> TECHNIQUE: CT angiogram of the pulmonary arteries was performed with MIP. All CT scans are performed using dose optimization technique as appropriate and may include automated exposure control or mA/KV adjustment according to patient size. FINDINGS: No evidence of pulmonary thromboembolism. No acute aortic finding demonstrated. The lungs are mildly emphysematous but clear. No significant pericardial or pleural fluid. No concerning bony finding. IMPRESSION: No evidence of pulmonary thromboembolism. No acute lung findings.
[2023-06-16 14:04] LABS: Protime INR 1.15
[2023-06-16 14:05] LABS: ALT/SGPT 14 U/L (13-56); Albumin 3.3 g/dL (3.4-5.0); Alkaline Phosphatase 74 U/L (45-117); BUN Blood Urea Nitrogen 13 mg/dL (7-18); Bicarbonate 25 mEq/L (21-32); Bilirubin Total 0.3 mg/dL (0.2-1.0); Glomerular Filtration Rate 56 ml/min (=/>90); Glucose Level 112 mg/dL (74-106); NT PRO-BNP 578 pg/mL (<450); Sodium Level 138 mEq/L (136-145); Troponin High Sensitivity 10.5 pg/mL (<58.9)
[2023-06-16 14:10] LABS: AST/SGOT 27 U/L (15-37); Bilirubin Direct < 0.1 mg/dL (0-0.2); Bilirubin Indirect, Calculated ND mg/dL (0.2-0.8); Magnesium 1.3 mg/dL (1.6-2.4); Potassium 3.6 mEq/L (3.5-5.1)
--- NOTE | 2023-06-16 17:16 | ER ---
Nurse's Notes [facility] Name: Felicia Martinez Age: 83 yrs Sex: Female : 1940 Arrival Date: 06/16/2023 Time: 12:43 Bed 7 Private MD: Marjorie Mehta Diagnosis: Muscular shoulder, chest and back pain Presentation: 06/16 13:05 Chief complaint: Patient states: chest pain that began today. Pt reports she was seen aa5 here for nose bleed and nose fracture a few days ago. 13:05 Coronavirus screen: At this time, the client does not indicate any symptoms associated aa5 with coronavirus-19. Ebola Screen: Patient denies travel to an Ebola-affected area in the 21 days before illness onset. Initial Sepsis Screen: Does the patient meet any 2 criteria? No. Patient's initial sepsis screen is negative. Does the patient have a suspected source of infection? No. Patient's initial sepsis screen is negative. Risk Assessment: Do you want to hurt yourself or someone else? Patient reports no desire to harm self or others. Onset of symptoms was June 16, 2023. 13:05 Acuity: BRYANNA 3 aa5 13:05 Method Of Arrival: Ambulatory aa5 Historical: - Allergies: 13:15 PENICILLINS; aa5 13:15 tramadol; aa5 13:15 Tylenol; aa5 13:15 Ibuprofen; aa5 - PMHx: 13:15 Asthma; Hypertensive disorder; aa5 - PSHx: 13:15 hernia; aa5 - Immunization history:: Adult Immunizations unknown. - Social history:: Smoking status: Patient denies any tobacco usage or history of. Screenin:58 [facility] ED Fall Risk Assessment (Adult) History of falling in the last 3 months, ph including since admission Yes- single mechanical fall (1 pt) Confusion or Disorientation No (0 pts) Intoxicated or Sedated No (0 pts) Impaired Gait No (0 pts) Mobility Assist Device Used No (0 pt) Altered Elimination Yes (1 pt) Score/Fall Risk Level 0 - 2 = Low Risk Oriented to surroundings, Maintained a safe environment, Assessed \T\ reinforced patient's understanding of fall precautions, Provided non-skid footwear. Abuse screen: Denies threats or abuse. Denies injuries from another. Nutritional screening: No deficits noted. Tuberculosis screening: No symptoms or risk factors identified. Assessment: 15:35 Reassessment: Pt c/o of continued pain to left upper chest. ERD notified, see [facility] for [facility] orders. 15:35 Pain: Complains of pain in anterior aspect of left upper chest, left lateral posterior jl7 chest and left lateral anterior chest Pain does not radiate. Pain currently is 5 out of 10 on a pain scale. Quality of pain is described as sore. 15:53 Reassessment: Attempted to medicate pt as ordered, pt refused morphine and Zofran at [facility] this time, reports Valium works for her pain. ERD notified see [facility] for orders. 15:58 Reassessment: Dr. Jackson at bedside discussing results and POC. [facility] 16:30 Reassessment: Patient appears in no apparent distress at this time. Patient and/or ph family updated on plan of care and expected duration. Pain level reassessed. Patient is alert, oriented x 3, equal unlabored respirations, skin warm/dry/pink. 17:55 Reassessment: Patient appears in no apparent distress at this time. Patient and/or ph family updated on plan of care and expected duration. Pain level reassessed. Patient is alert, oriented x 3, equal unlabored respirations, skin warm/dry/pink. Vital Signs: 13:05 BP 177 / 114; Pulse 89; Resp 20 S; Temp 98(TE); Pulse Ox 98% on R/A; Weight 68.04 kg aa5 (R); Height 5 ft. 2 in. (R); Pain 5/10; 14:58 BP 152 / 60; Pulse 72; Resp 16; Pulse Ox 100% ; iw 16:00 BP 124 / 57; Pulse 76; Resp 15; Pulse Ox 100% ; Pain 5/10; jl7 17:00 BP 122 / 71; Pulse 67; Resp 18; Pulse Ox 97% on R/A; ph 17:45 BP 135 / 85; Pulse 70; Resp 16; Temp 97.5; Pulse Ox 97% on R/A; ph 13:05 Body Mass Index 27.44 (68.04 kg, 157.48 cm) aa5 13:05 Pain Scale: Adult aa5 16:00 Pain Scale: Adult jl7 ED Course: 12:46 Patient arrived in ED. mr 12:46 Marjorie Mehta is Private Physician. mr 12:47 Jeanette Jackson MD is Attending Physician. sp3 13:05 Arm band placed on. aa5 13:15 Triage completed. aa5 13:17 Patient has correct armband on for positive identification. Placed in gown. Bed in low ap3 position. Call light in reach. Side rails up X2. Adult w/ patient. playground monitor on. Pulse ox on. NIBP on. Door closed. Noise minimized. Warm blanket given. 13:17 EKG done, by ED staff, reviewed by Jeanette Jackson MD. ap3 13:17 Patient maintains SpO2 saturation greater than 95% on room air. ap3 13:22 XRAY Chest (1 view) In Process Unspecified. EDMS 13:47 CT Chest For PE Angio In Process Unspecified. EDMS 13:57 Rebecca Porras, RN is Primary Nurse. ph 17:59 No provider procedures requiring assistance completed. IV discontinued, intact, ph bleeding controlled, No redness/swelling at site. Pressure dressing applied. Administered Medications: 13:46 CANCELLED (errorr): Heparin ([place]-Bolus No thrombolytic) - [id number] units/kg IVP once; sp3 Max 5000 units 15:04 Not Given (Physician Discretion): [id number] mg IV at calculated rate once iw 15:56 Not Given (Patient Refused): morphineor iv 4 mg IVP once over 4 mins jl7 15:56 Not Given (Patient Refused): ondansetron 4 mg IVP once; over 2 minutes jl7 16:06 Drug: Ativan IVP 1 mg IVP once Route: IVP; Site: left forearm; jl7 16:30 Follow up: Response: No adverse reaction ph Medication: 17:58 VIS not applicable for this client. ph Outcome: 17:15 Discharge ordered by MD. sp3 17:59 Discharged to home via wheelchair, with family, ph 17:59 Condition: good 17:59 Discharge instructions given to patient, Instructed on discharge instructions, follow up and referral plans. Demonstrated understanding of instructions, follow-up care, 18:00 Patient left the ED. ph Signatures: Dispatcher [employer] EDME MarieKathe, Reg Reg mr Blanca Bonilla RN RN Sirisha Acosta, RN RN aa Rebecca Porras, RN RN ph Danielle Nunes RN RN jl7 Neida Steinberg, RN RN ap3 Jeanette Jackson, MD ROQUE sp3
--- NOTE | 2023-06-16 17:16 | EDPHYS ---
Physician Documentation [facility] Name: Felicia Martinez Age: 83 yrs Sex: Female : 1940 Arrival Date: 06/16/2023 Time: 12:43 Bed 7 Private MD: Marjorie Mehta ED Physician Jeanette Jackson HPI: 06/16 14:11 This 83 yrs old Female presents to ER via Ambulatory with complaints of Chest Pain. sp3 14:11 83-year-old female with history of hypertension and asthma presents to the ED with sp3 chief complaint chest pain that started earlier this morning. Patient has had a recent fall injury with facial fracture and dental injury as well as bleeding that she is recovering from which she was seen here for 2 days ago. Chest pain today started insidiously while she was at rest on substernal and left chest area. She denies any other symptoms including headache, fever, neck pain, back pain, shortness of breath, abdominal pain, nausea, vomiting, diarrhea, extremity pain, syncope, near syncope, or any other signs or symptoms on ROS at this time. Pain is described as constant in nature that is waxing and waning and dull. Patient is also had a right-sided upper extremity DVT secondary to PICC line placement "many years ago". Patient is on no anticoagulants and no antiplatelet agents.. Historical: - Allergies: 13:15 PENICILLINS; aa5 13:15 tramadol; aa5 13:15 Tylenol; aa5 13:15 Ibuprofen; aa5 - PMHx: 13:15 Asthma; Hypertensive disorder; aa5 - PSHx: 13:15 hernia; aa5 - Immunization history:: Adult Immunizations unknown. - Social history:: Smoking status: Patient denies any tobacco usage or history of. ROS: 14:12 Constitutional: Negative for fever, chills, and weight loss, Eyes: Negative for injury, sp3 pain, redness, and discharge, ENT: Negative for injury, pain, and discharge, Neck: Negative for injury, pain, and swelling, Respiratory: Negative for shortness of breath, cough, wheezing, and pleuritic chest pain, Abdomen/GI: Negative for abdominal pain, nausea, vomiting, diarrhea, and constipation, Back: Negative for injury and pain, MS/Extremity: Negative for injury and deformity, Skin: Negative for injury, rash, and discoloration, Neuro: Negative for headache, weakness, numbness, tingling, and seizure, Psych: Negative for depression, anxiety, suicide ideation, homicidal ideation, and hallucinations, Allergy/Immunology: Negative for hives, rash, and allergies, Endocrine: Negative for neck swelling, polydipsia, polyuria, polyphagia, and marked weight changes, Hematologic/Lymphatic: Negative for swollen nodes, abnormal bleeding, and unusual bruising, 14:12 All other systems are negative, Exam: 13:42 ECG was reviewed by the Attending Physician. EKG demonstrates normal sinus rhythm at 78 sp3 bpm with normal intervals, normal QRS, normal axis, nonspecific diffuse ST's ST changes without evidence of acute ischemia. 14:19 Constitutional: This is a well developed, well nourished patient who is awake, alert, sp3 and in no acute distress. Head/Face: Normocephalic, atraumatic. Eyes: Pupils equal round and reactive to light, extra-ocular motions intact. Lids and lashes normal. Conjunctiva and sclera are non-icteric and not injected. Cornea within normal limits. Periorbital areas with no swelling, redness, or edema. ENT: Nares patent. No nasal discharge, no septal abnormalities noted. External auditory canals are clear. Oropharynx with no redness, swelling, or masses, exudates, or evidence of obstruction, uvula midline. Mucous membranes moist. Neck: Trachea midline, no thyromegaly or masses palpated, and no cervical lymphadenopathy. Supple, full range of motion without nuchal rigidity, or vertebral point tenderness. No Meningismus. Chest/axilla: Normal chest wall appearance and motion. Nontender with no deformity. No lesions are appreciated. Cardiovascular: Regular rate and rhythm with a normal S1 and S2. No gallops, murmurs, or rubs. Normal PMI, no JVD. No pulse deficits. Respiratory: Lungs have equal breath sounds bilaterally, clear to auscultation and percussion. No rales, rhonchi or wheezes noted. No increased work of breathing, no retractions or nasal flaring. Abdomen/GI: Soft, non-tender, with normal bowel sounds. No distension or tympany. No guarding or rebound. No evidence of tenderness throughout. Back: No spinal tenderness. No costovertebral tenderness. Full range of motion. Skin: Warm, dry with normal turgor. Normal color with no rashes, no lesions, and no evidence of cellulitis. MS/ Extremity: Pulses equal, no cyanosis. Neurovascular intact. Full, normal range of motion. Neuro: Awake and alert, GCS 15, oriented to person, place, time, and situation. Cranial nerves II-XII grossly intact. Motor strength 5/5 in all extremities. Sensory grossly intact. Cerebellar exam normal. Normal gait. Psych: Awake, alert, with orientation to person, place and time. Behavior, mood, and affect are within normal limits. 14:19 Constitutional: The patient appears Patient is hypertensive 177/114 with normal heart rate. Vital Signs: 13:05 BP 177 / 114; Pulse 89; Resp 20 S; Temp 98(TE); Pulse Ox 98% on R/A; Weight 68.04 kg aa5 (R); Height 5 ft. 2 in. (R); Pain 5/10; 14:58 BP 152 / 60; Pulse 72; Resp 16; Pulse Ox 100% ; iw 16:00 BP 124 / 57; Pulse 76; Resp 15; Pulse Ox 100% ; Pain 5/10; jl7 17:00 BP 122 / 71; Pulse 67; Resp 18; Pulse Ox 97% on R/A; ph 17:45 BP 135 / 85; Pulse 70; Resp 16; Temp 97.5; Pulse Ox 97% on R/A; ph 13:05 Body Mass Index 27.44 (68.04 kg, 157.48 cm) aa5 13:05 Pain Scale: Adult aa5 16:00 Pain Scale: Adult jl7 MDM: 12:56 Patient medically screened. sp3 14:20 Data reviewed: vital signs, nurses notes, lab test result(s), EKG, radiologic studies. sp3 ED course: 83-year-old female with hypertension and chest pain status post recent trauma. Differential diagnosis includes acute coronary syndrome spectrum, PE given her past history, GERD, muscular pain, among others. I am not highly suspicious for aortic pathology including aneurysm and/or dissection. Will obtain EKG which has been performed, CT chest, laboratory values including troponin and general observation. Labetalol for blood pressure control. Disposition pending workup and patient course.. 16:10 ED course: All initial blood work is normal except magnesium level is mildly low. sp3 Initial troponin is negative. CT scan of the chest demonstrates no abnormality including thromboembolism. After further physical exam and history from patient, I believe patient's chest pain and back pain is related to musculoskeletal etiologies secondary to her recent fall. Will obtain second troponin and if negative, we will safely discharge patient home. She will receive Ativan 1 mg IV for muscle relaxation and she can follow-up with her PCP.. 17:14 ED course: Repeat troponin is negative. Patient feels better after muscle relaxer. We sp3 will safely discharged home at this time.. 06/16 13:08 Order name: Basic Metabolic Panel; Complete Time: 15:59 sp3 06/16 13:08 Order name: CBC with Diff; Complete Time: 14:03 sp3 06/16 13:08 Order name: LFT's; Complete Time: 15:59 sp3 06/16 13:08 Order name: Magnesium; Complete Time: 15:59 sp3 06/16 13:08 Order name: NT PRO-BNP; Complete Time: 15:59 sp3 06/16 13:08 Order name: PT-INR; Complete Time: 15:59 sp3 06/16 13:08 Order name: Troponin HS; Complete Time: 15:59 sp3 06/16 13:45 Order name: Troponin High Sensitivity sp3 06/16 16:03 Order name: Troponin High Sensitivity; Complete Time: 17:14 sp3 06/16 13:08 Order name: XRAY Chest (1 view); Complete Time: 14:03 sp3 06/16 13:32 Order name: CT Chest For PE Angio; Complete Time: 14:03 sp3 06/16 13:08 Order name: EKG; Complete Time: 13:09 sp3 06/16 13:08 Order name: Cardiac monitoring; Complete Time: 13:17 sp3 06/16 13:08 Order name: EKG - Nurse/Tech; Complete Time: 13:17 sp3 06/16 13:08 Order name: IV Saline Lock; Complete Time: 13:34 sp3 06/16 13:08 Order name: Labs collected and sent; Complete Time: 13:34 sp3 06/16 13:08 Order name: O2 Per Protocol; Complete Time: 13:17 sp3 06/16 13:08 Order name: O2 Sat Monitoring; Complete Time: 13:17 sp3 Administered Medications: 13:46 CANCELLED (errorr): Heparin ([place]-Bolus No thrombolytic) - [id number] units/kg IVP once; sp3 Max 5000 units 15:04 Not Given (Physician Discretion): [id number] mg IV at calculated rate once iw 15:56 Not Given (Patient Refused): morphineor iv 4 mg IVP once over 4 mins jl7 15:56 Not Given (Patient Refused): ondansetron 4 mg IVP once; over 2 minutes jl7 16:06 Drug: Ativan IVP 1 mg IVP once Route: IVP; Site: left forearm; jl7 16:30 Follow up: Response: No adverse reaction ph Disposition Summary: 06/16/23 17:15 Discharge Ordered Notes: Location: Home sp3 Condition: Stable sp3 Diagnosis - Muscular shoulder, chest and back pain sp3 Followup: sp3 - With: Private Physician - When: Upon discharge from the Emergency Department - Reason: Continuance of care Discharge Instructions: - Discharge Summary Sheet sp3 - Muscle Strain sp3 Forms: - Medication Reconciliation Form sp3 - Thank You Letter sp3 - Antibiotic Education sp3 - Prescription Opioid Use sp3 - Patient Portal Instructions sp3 - Leadership Thank You Letter sp3 Signatures: Dispatcher [employer] EDMS Sirisha Acosta RN RN aa5 aDnielle Nunes RN RN jl7 Jeanette Jackson MD MD sp3 Blanca Bonilla RN iw Rebecca Porras RN ph Corrections: (The following items were deleted from the chart) 13:46 13:45 EKG - Nurse/Tech ordered. sp3 sp3 13:46 13:45 Heparin ([place]-Bolus No thrombolytic) - HEParin IVP 60 units/kg IVP once; Max 5000 sp3 units ordered. sp3 14:20 13:42 ECG was reviewed by the Attending Physician. EKG demonstrates normal sinus rhythm sp3 at 78 bpm with normal intervals, normal QRS, normal axis, nonspecific diffuse ST's ST changes without evidence of acute ischemia. sp3 14:20 14:11 83-year-old female with history of hypertension and asthma presents to the ED sp3 with chief complaint chest pain that started earlier this morning. Patient has had a recent fall injury with facial fracture and dental injury as well as bleeding that she is recovering from which she was seen here for 2 days ago. Chest pain today started insidiously while she was at rest on substernal and left chest area. She denies any other symptoms including headache, fever, neck pain, back pain, shortness of breath, abdominal pain, nausea, vomiting, diarrhea, extremity pain, syncope, near syncope, or any other signs or symptoms on ROS at this time. Pain is described as constant in nature that is waxing and waning and dull.. sp3
[2023-06-16 20:45] VITALS: O2SAT 97
[2023-06-16 20:56] VITALS: BP 135/85; TEMP 97.5
--- NOTE | 2023-06-19 17:08 | EKG ---
Test Date: 2023-06-16 Test Time: 13:14:15 Director Data Management: ALP MEASUREMENT RESULTS: Intervals: Rate: 78 DE: 112 QRSD: 70 QT: 352 QTc: 401 [place]: P: 77 DE: 112 QRS: 76 T: 246 INTERPRETIVE STATEMENTS: Normal sinus rhythm ST & T wave abnormality, consider inferolateral ischemia Abnormal ECG Compared to ECG 03/12/2020 10:34:34 Short DE interval no longer present ST (T wave) deviation still present Possible ischemia still present Electronically Signed On 06-19-23 16:59:57 DYNAMOM[employer] TUNER by Mg Aparicio
== END ==
LOC: ER 12:43
DX: R07.89 Other chest pain (principal); M79.18 Myalgia, other site; M25.512 Pain in left shoulder; M54.9 Dorsalgia, unspecified; I10 Essential (primary) hypertension; Z88.0 Allergy status to penicillin; Z88.5 Allergy status to narcotic agent; Z88.6 Allergy status to analgesic agent
CPT/HCPCS: 93005; 85025; 80048; 36415; 83735; 85610; 80076; 84484 ×2; 83880; 71275; 71045; 96374; 99285; Q9967; J2405

== ENCOUNTER → 2023-07-27 | Emergency (ER) | payer OTHER ==
--- OUTSIDE RECORDS SUMMARY | 2023-07-27 09:14 | XMS REPORT | Continuity of Care Document ---
Author Name Unknown Address [address] [place] [address] [facility] thconnect Address [address] [place] [address] Care Team Providers Care Terminal Make Up Operator Name Role Phone YARED VAZQUEZ Primary Care Physician ANGEL Keene Attending Clinician Unavailable Angel Campbell DO Attending Clinician [phone] Doctor Unassigned, [place] Attending Clinician U Nicola Branham MD Attending Clinician [phone] ANGEL CAMPBELL Admitting Clinician Unavailable Nicola Talbot MD Admitting Clinician [phone] Payers Payer Name Policy Type Policy Number Effective Date Expirati on Date Source [id number] 2021 00:00:00 Problems Condition Name Condition Details Condition Category Status Onset Date Resolution Date Last Treatment Date Treating Clinician Comments Source No known active problems No known active problems Disease [facility] Allergies, Adverse Reactions, Alerts Allergy Name Allergy Type Status Severity Reaction(s) Onset Date Inactive Date Treating Clinician Comments Source Adhesive Tape-Elva icones Propensi ty to adverse reaction s Active Rash 06-19 00:00: 00 [facility] ADHESIVE TAPE-ELVA ICONES DRUG Active Med Rash 06-19 00:00: 00 [facility] TRAMADOL DRUG INGREDI Active High ITCHING 2018-06 00:00: 00 [facility] PENICILL INS Drug Class Active Med Swelling 2018-06 00:00: 00 [facility] Penicill ins Propensi ty to adverse reaction s Active Swelling 2018-06 00:00: 00 Itching [facility] Tramadol Propensi ty to adverse reaction s Active Itching 2018-06 00:00: 00 [facility] Social History Social Habit Start Date Stop Date Quantity Comments Source Exposure to SARS-CoV-2 (event) 2022-04-03 00:00:00 2022-04-13 14:46:00 Not sure [facility] Tobacco use and exposure 2019-05-20 00:00:00 2019-05-20 00:00:00 Smokeless tobacco non-user [facility] Sex Ass[birth year] At 1940 00:00:00 1940 00:00:00 [facility] Smoking Status Start Date Stop Date Source Never smoked tobacco [facility] Medications Ordered Medication Name Filled Medication Name Start Date Stop Date Current Medication? Ordering Clinician Indication Dosage Frequency Signature (SIG) Comments Components Source iopamidol (ISOVUE 370-500 mL) injection 75 mL 2021-06 23:00: 00 04-13 23:00 :00 No [id number] 75mL 75 mL, Intravenou s, ONCE, 1 dose, On Mon04/13/22 at 1700, Routine [facility] ondansetron (ZOFRAN (PF)) injection 4 mg 2021-06 20:30: 00 04-13 20:52 :00 No 4mg 4 mg, Slow IV Push, ONCE, 1 dose, On Mon04/13/22 at 1430, Routine [facility] Simethicone 125 mg 2021-06 00:00: 00 05-14 05:59 :00 No [id number] 125mg Take 1 capsule by mouth after meals and at bedtime as needed for Gas for up to 30 days. [facility] fenofibrate 145 mg tablet 06-19 12:02: 18 Yes 145mg Take 145 mg by mouth daily. [facility] amLODIPine 10 mg tablet 06-19 12:02: 18 Yes 10mg Take 10 mg by mouth daily. [facility] benazepril 20 mg tablet 06-19 12:02: 18 Yes 20mg Take 20 mg by mouth daily. [facility] Levothyroxi ne 125 mcg capsule 06-19 12:02: 18 Yes Take by mouth. [facility] Multivitami ns with Fluoride (MULTI-JAYNE MIN ORAL) 06-19 12:02: 18 Yes Take by mouth. [facility] cholecalcif ross, vitamin D3, (D-3-5 ORAL) 06-19 12:02: 18 Yes Take by mouth. [facility] febuxostat (ULORIC) 80 mg tablet 06-19 12:02: 18 Yes 80mg Take 80 mg by mouth daily. [facility] fenofibrate 145 mg tablet 06-19 12:02: 18 Yes 145mg Take 145 mg by mouth daily. [facility] amLODIPine 10 mg tablet 06-19 12:02: 18 Yes 10mg Take 10 mg by mouth daily. [facility] benazepril 20 mg tablet 06-19 12:02: 18 Yes 20mg Take 20 mg by mouth daily. [facility] Levothyroxi ne 125 mcg capsule 06-19 12:02: 18 Yes Take by mouth. [facility] Multivitami ns with Fluoride (MULTI-JAYNE MIN ORAL) 06-19 12:02: 18 Yes Take by mouth. [facility] cholecalcif ross, vitamin D3, (D-3-5 ORAL) 06-19 12:02: 18 Yes Take by mouth. [facility] febuxostat (ULORIC) 80 mg tablet 06-19 12:02: 18 Yes 80mg Take 80 mg by mouth daily. [facility] Vital Signs Vital Name Observation Time Observation Value Comments Celina cisse Systolic blood pressure 2022-04-13 23:00:00 133 mm[Hg] [facility] Diastolic blood pressure 2022-04-13 23:00:00 54 mm[Hg] [facility] Heart rate 2022-04-13 23:00:00 62 /min [facility] Respiratory rate 2022-04-13 23:00:00 13 /min [facility] Oxygen saturation in Arterial blood by Pulse oximetry 2022-04-13 23:00:00 95 /min [place] [facility] Body temperature 2022-04-13 19:31:00 36.89 Lynnette [facility] Body weight 2022-04-13 19:31:[address] [facility] BMI 2022-04-13 19:31:00 27.07 kg/m2 [facility] Procedures Procedure Date / Time Performed Performing Clinicia n Source CT ABDOMEN PELVIS W CONTRAST 2022-04-13 21:58:00 Angel Campbell [facility] LIPASE 2022-04-13 20:44:00 [facility] COMP. METABOLIC PANEL (15690) 2022-04-13 20:44:00 Angel Campbell [facility] CBC WITH DIFF 2022-04-13 20:44:[address] [facility] URINALYSIS 2022-04-13 20:44:00 [facility] CONSENT/REFUSAL FOR DIAGNOSIS AND TREATMENT 2022-04-13 19:12:48 Doctor Unassigned, [facility] Encounters Start Date/Time End Date/Time Encounter Type Admission Type Attending [facility] Care Facility Care Department Encounter ID Source 2022-04-13 13:33:00 2022-04-13 17:15:00 Emergency X ANGEL CAMPBELL [facility] ERT [id number] [facility] 2022-04-13 13:33:00 2022-04-13 17:15:00 Emergency Angel Campbell [facility] [id number] [facility] 2022-04-13 00:00:00 2022-04-13 00:00:00 Orders Only Doctor Unassigned, [facility] [id number] [id number] [facility] 2019-06-19 09:48:00 2019-06-19 12:02:00 Hospital Encounter Nicola Talbot [facility] [id number] [id number] 2019-06-18 00:00:00 2019-06-18 00:00:00 Orders Only Doctor Unassigned, [place] [facility] [id number] Results Test Description Test Time Test Comments Results Result Co mments [facility] Test Item Value Reference Range Interpretation Comme nts LIPASE (test code = 4186749224) 148 U/L 0-220 Lab Interpretation (test cod e = 00240-6) Normal [facility] WITH [id number] 21:15:53* Test Item Value Reference Range Interpretation [...] 34.0 g/dL 31.6-35.1 RDW-SD (test code = 81127-0) 40.3 fL 39.0-49.9 RDW-CV (test code = 788-0) 12.8 % 12.0-15.5 PLT (test code = 777-3) See_Comment [Automated messa ge] The system which generated this result transmitted reference range: 166 - 358 10*3/?L. The reference range was not used to interpret this result as normal/abnormal. MPV (test code = 58764-7) 11.0 fL 9.5-12.9 NRBC/100 WBC (test code = 5735240734) See_Comment [Automated Getui ssage] The system which generated this result transmitted reference range: 0.0 - 10.0 /100 WBCs. The reference range was not used to interpret this result as normal/abnormal. NRBC x10^3 (test code = 1044526375) See_Comment [Automated messa ge] The system which generated this result transmitted reference range: 10*3/?L. The reference range was not used to interpret this result as normal/abnormal. GRAN MAT (NEUT) % (test code = 770-8) 68.2 % IMM GRAN % (test code = 3398285175) 0.30 % LYMPH % (test code = 736-9) 20.7 % MONO % (test code = 5905-5) 9.5 % EOS % (test code = 713-8) 0.5 % BASO % (test code = 706-2) 0.8 % GRAN MAT x10^3(ANC) (test code = 3139460686) 2.50 10*3/uL 1.88-7.09 IMM GRAN x10^3 (test code = 2281515258) 0.00-0.06 LYMPH x10^3 (test code = 731-0) 0.76 10*3/uL 1.32-3.29 L MONO x10^3 (test code = 742-7) 0.35 10*3/uL 0.33-0.92 EOS x10^3 (test code = 711-2) 0.03-0.39 L BASO x10^3 (test code = 704-7) 0.03 10*3/uL 0.01-0.07 Lab Interpretation (test code = 98586-3) Abnormal [facility]
--- NOTE | 2023-07-27 11:00 | RAD REPORT ---
EXAM DESCRIPTION: CT - Head Brain Wo Cont - 07/27/2023 10:53 am CLINICAL HISTORY: right sided weakness, shuffling gait COMPARISON: Facial Bones W/ Mpr dated 06/12/2023; Chest For Pe Angio dated 06/16/2023 TECHNIQUE: All CT scans are performed using dose optimization technique as appropriate and may inclu de automated exposure control or mA/KV adjustment according to patient size. FINDINGS: There is a moderate to large left-sided subdural hematoma present measuring up to 2.3 cm i n maximum thickness. This is likely subacute in timeframe.There is mild gkyh-su-kjfby midline shift o f approximately 7 mm present. The paranasal sinuses and mastoids are clear. The calvarium is intact. IMPRESSION: Subacute time frame moderate to large left-sided subdural hematoma is present. There is 7 mm ljsf-yk-lyafj midline shift suspected.
--- NOTE | 2023-07-27 11:15 | RAD REPORT ---
EXAM DESCRIPTION: RAD - Chest Single View - 07/27/2023 11:08 am CLINICAL HISTORY: weakness Chest pain. COMPARISON: Chest Single View dated 06/16/2023; Chest Pa And Lat (2 Views) dated 06/24/2020; Chest Sin gle View dated 03/12/2020; Chest Single View dated 07/06/2016 FINDINGS: Portable technique limits examination quality. The lungs are grossly clear. The heart is normal in size. No displaced fractures. IMPRESSION: No acute intrathoracic process suspected.
--- NOTE | 2023-07-27 11:50 | EDPHYS ---
Physician Documentation [facility] Name: Felicia Martinez Age: 83 yrs Sex: Female : 1940 Arrival Date: 07/27/2023 Time: 09:11 Bed 9 Private MD: ED Physician Fredrick Damian HPI: 07/27 11:44 This 83 yrs old Female presents to ER via Unassigned with complaints of Fall Injury. rn 11:44 The patient's problem is reported as weakness, in the right upper extremity, in the rn right lower extremity. Onset: The symptoms/episode began/occurred 5 day(s) ago. Duration: The episodes are intermittent. Context: Possible contributing factors include:. The symptoms are alleviated by nothing. The symptoms are aggravated by nothing. Severity of symptoms: At their worst the symptoms were moderate in the emergency department the symptoms are unchanged. The patient has not experienced similar symptoms in the past. Patient reports fall 2 to 3 weeks ago with facial injury. Seen here and CT normal at that time. No blood thinners. Reports minor head injury since then where she hit her head on a cabinet. Now reports 5 days of difficulty walking, forgetfulness, right arm and leg weakness. No syncope. No seizure.. Historical: - Allergies: 09:40 Ibuprofen; iw 09:40 PENICILLINS; iw 09:40 tramadol; iw 09:40 Tylenol; iw - PMHx: 09:40 Asthma; Hypertensive disorder; iw - PSHx: 09:40 hernia; iw - Immunization history:: Adult Immunizations up to date. - Social history:: Smoking status: . - Family history:: not pertinent. - Hospitalizations: : No recent hospitalization is reported. ROS: 11:44 Constitutional: Negative for fever, chills, and weight loss, Neck: Negative for injury, rn pain, and swelling, Cardiovascular: Negative for chest pain, palpitations, and edema, Respiratory: Negative for shortness of breath, cough, wheezing, and pleuritic chest pain, Abdomen/GI: Negative for abdominal pain, nausea, vomiting, diarrhea, and constipation, MS/Extremity: Negative for injury and deformity, Skin: Negative for injury, rash, and discoloration, Neuro: Positive for dizziness and right-sided weakness Exam: 11:44 Radiologist reports: Left-sided moderate subdural, subacute, with died-sn-jttym shift rn 11:44 Constitutional: This is a well developed, well nourished patient who is awake, alert, and in no acute distress. Head/Face: Normocephalic, atraumatic. Eyes: Pupils equal round and reactive to light, extra-ocular motions intact. Neck: No Meningismus. Cardiovascular: Regular rate and rhythm. No pulse deficits. Respiratory: No increased work of breathing, no retractions or nasal flaring. Abdomen/GI: Soft, non-tender MS/ Extremity: Pulses equal, no cyanosis. Neuro: Awake and alert, GCS 15, slight right upper extremity and right lower extremity weakness with slight drift and decreased supervisor sterile processing strength. Sensation intact. Normal coordination. Vital Signs: 09:40 BP 151 / 72; Pulse 82; Resp 16; Pulse Ox 96% ; Weight 65.77 kg; Height 5 ft. 2 in. ; iw 09:40 Body Mass Index 26.52 (65.77 kg, 157.48 cm) iw MDM: 09:21 Patient medically screened. rn 11:44 Differential diagnosis: CVA, TIA, Traumatic head injury, subdural. Data reviewed: vital rn signs, nurses notes, radiologic studies, CT scan, and as a result, I will admit patient. Consideration of Admission/Observation Patient was admitted/placed on observation. Escalation of care including admission/observation considered. Counseling: I had a detailed discussion with the patient and/or guardian regarding the historical points, exam findings, and any diagnostic results supporting the discharge/admit diagnosis, radiology results, the need to transfer to another facility. Response to treatment: the patient's symptoms have mildly improved after treatment. 07/27 09:54 Order name: CBC with Diff rn 07/27 12:48 Order name: CREATININE WHOLE BLOOD EDPA 07/27 09:54 Order name: CT Head Brain wo Cont; Complete Time: 11:05 rn 07/27 09:54 Order name: XRAY Chest (1 view); Complete Time: 11:18 rn 07/27 09:54 Order name: Accucheck; Complete Time: 11:50 rn 07/27 09:54 Order name: Cardiac monitoring; Complete Time: 11:50 rn 07/27 09:54 Order name: IV Saline Lock; Complete Time: 11:50 rn 07/27 09:54 Order name: Labs collected and sent; Complete Time: 11:50 rn 07/27 09:54 Order name: O2 Per Protocol; Complete Time: 10:44 rn 07/27 09:54 Order name: O2 Sat Monitoring; Complete Time: 10:44 rn 07/27 09:54 Order name: Stroke Swallow Screen; Complete Time: 10:44 rn 07/27 12:12 Order name: Labs - recollect needed: green and blue top bc6 Administered Medications: 10:30 Drug: NS 0.9% IV 500 ml IV at bolus once Route: IV; Rate: bolus; Site: left forearm; bp Disposition Summary: 07/27/23 11:49 Transfer Ordered Notes: Transfer Location: [facility] rn Reason: Higher level of care rn Condition: Stable rn Problem: new rn Symptoms: have improved rn Accepting Physician: (07/27/23 13:24) joseph Diagnosis - Traumatic subdural hemorrhage rn - Weakness medical intern Instructions: - Discharge Summary Sheet bc6 Forms: - Medication Reconciliation Form rn - SBAR form bc6 Signatures: Dispatcher [employer] EDMS Blanca Bonilla RN RN Fredrick Ken MD MD rn Peltier, Brian, RN RN Charlene Hankins bc6 Corrections: (The following items were deleted from the chart) 10:56 09:55 Head Angio+CT.RAD.BRZ ordered. EDMS EDMS 10:56 09:55 Neck Angio+CT.RAD.BRZ ordered. EDMS EDMS 13:24 11:49 Dr. eloisa ruiz
--- NOTE | 2023-07-27 11:50 | ER ---
Nurse's Notes [facility] Name: Felicia Martinez Age: 83 yrs Sex: Female : 1940 Arrival Date: 07/27/2023 Time: 09:11 Bed 9 Private MD: Diagnosis: Traumatic subdural hemorrhage;Weakness Presentation: 07/27 09:37 Chief complaint: Patient states: she slid off the bed this morning and could not get iw herself back up , she's had a hard time writing with her right hand, she feels weak on the right , the weakness started yesterday , she had a fall a couple weeks ago also. 09:37 Acuity: BRYANNA 3 iw 12:00 Coronavirus screen: At this time, the client does not indicate any symptoms associated bp with coronavirus-19. 12:05 Ebola Screen: No symptoms or risks identified at this time. Initial Sepsis Screen: Does bp the patient meet any 2 criteria? No. Patient's initial sepsis screen is negative. Does the patient have a suspected source of infection? No. Patient's initial sepsis screen is negative. Risk Assessment: Do you want to hurt yourself or someone else? Patient reports no desire to harm self or others. Onset of symptoms is unknown. 12:05 Method Of Arrival: Wheelchair bp Triage Assessment: 10:00 General: Appears in no apparent distress. Behavior is calm, cooperative, appropriate bp for age. Pain: Complains of pain in head. Neuro: Level of Consciousness is awake, alert, obeys commands, Oriented to Appropriate for age. Historical: - Allergies: 09:40 Ibuprofen; iw 09:40 PENICILLINS; iw 09:40 tramadol; iw 09:40 Tylenol; iw - PMHx: 09:40 Asthma; Hypertensive disorder; iw - PSHx: 09:40 hernia; iw - Immunization history:: Adult Immunizations up to date. - Social history:: Smoking status: . - Family history:: not pertinent. - Hospitalizations: : No recent hospitalization is reported. Screenin:58 [facility] ED Fall Risk Assessment (Adult) History of falling in the last 3 months, bp including since admission No falls in past 3 months (0 pts). Abuse screen: Denies threats or abuse. Denies injuries from another. Nutritional screening: No deficits noted. Tuberculosis screening: No symptoms or risk factors identified. Assessment: 10:00 General: SEE TRIAGE NOTE. bp 11:58 Reassessment: TRANSFER IN PROCESS. bp Vital Signs: 09:40 BP 151 / 72; Pulse 82; Resp 16; Pulse Ox 96% ; Weight 65.77 kg; Height 5 ft. 2 in. ; iw 09:40 Body Mass Index 26.52 (65.77 kg, 157.48 cm) iw ED Course: 09:14 Patient arrived in ED. kj1 09:21 Fredrick Damian MD is Attending Physician. rn 09:39 Triage completed. iw 09:41 Arm band placed on. iw 10:00 Inserted saline lock: 22 gauge in left forearm, using aseptic technique. Blood bp collected. 10:29 Kendrick Arellano, RN is Primary Nurse. bp 10:55 CT Head Brain wo Cont In Process Unspecified. EDMS 11:10 XRAY Chest (1 view) In Process Unspecified. EDMS 11:58 Patient has correct armband on for positive identification. bp 11:58 No provider procedures requiring assistance completed. Patient transferred, IV remains bp in place. Administered Medications: 10:30 Drug: NS 0.9% IV 500 ml IV at bolus once Route: IV; Rate: bolus; Site: left forearm; bp Medication: 11:58 VIS not applicable for this client. bp Outcome: 11:49 ER care complete, transfer ordered by . rn 11:58 Transferred by ground EMS to [facility], bp 11:58 Condition: stable 11:58 Instructed on the need for transfer, 13:24 Patient left the ED. iw Signatures: Dispatcher [employer] Blanca Amanda RN RN iw Fredrick Damian MD MD rn Peltier, Brian, RN Shruti Renteria [email or web address]
[2023-07-27 12:05] LABS: Absolute Lymphocytes (CBC) 1.5 K/uL (0.7-4.9); Hematocrit 36.7 % (36.0-45.0); MCV 86.3 fL (80-100); MPV 9.6 fL (7.6-11.3); Platelets 355 thou/uL (152-406); RBC Red Blood Cell Count 4.25 M/uL (3.86-4.86)
[2023-07-27 13:49] VITALS: BP 151/72; O2SAT 96
== END ==
LOC: ER 09:11
DX: S06.5X0A Traumatic subdural hemorrhage without loss of consciousness, initial encounter (principal); I10 Essential (primary) hypertension; Z88.0 Allergy status to penicillin; Z88.5 Allergy status to narcotic agent; Z88.6 Allergy status to analgesic agent
CPT/HCPCS: 36415; 70450; 71045; 82565; 85025; 99285

== ENCOUNTER 2023-08-05 13:15 | Inpatient (IN) | payer OTHER ==
--- OUTSIDE RECORDS SUMMARY | 2023-08-05 14:11 | XMS REPORT | Continuity of Care Document ---
Author Name Unknown Address [address] [facility] [address] [place] [address] [facility] thconnect Address [address] [facility] [address] [place] [address] Care Team Providers Care Gmat Tutor Name Role Phone YARED VAZQUEZ Primary Care Physician ANGEL Keene Attending Clinician Unavailable Angel Campbell DO Attending Clinician [phone] Doctor Unassigned, [place] Attending Clinician U Nicola Branham MD Attending Clinician [phone] ANGEL CAMPBELL Admitting Clinician Unavailable Nicola Talbot MD Admitting Clinician [phone] Payers Payer Name Policy Type Policy Number Effective Date Expirati on Date Source [facility] [id number] 2021 00:00:00 Problems Condition Name Condition Details Condition Category Status Onset Date Resolution Date Last Treatment Date Treating Clinician Comments Source No known active problems No known active problems Disease [facility] Allergies, Adverse Reactions, Alerts Allergy Name Allergy Type Status Severity Reaction(s) Onset Date Inactive Date Treating Clinician Comments Source Adhesive Tape-Elva icones Propensi ty to adverse reaction s Active Rash 06-19 00:00: 00 [facility] ADHESIVE TAPE-ELVA ICONES DRUG Active Med Rash 06-19 00:00: 00 [facility] TRAMADOL DRUG INGREDI Active High ITCHING 2018-06 00:00: 00 [facility] PENICILL INS Drug Class Active Med Swelling 2018-06 00:00: 00 [facility] Penicill ins Propensi ty to adverse reaction s Active Swelling 2018-06 00:00: 00 Itching [facility] Tramadol Propensi ty to adverse reaction s Active Itching 2018-06 00:00: 00 [facility] Social History Social Habit Start Date Stop Date Quantity Comments Source Exposure to SARS-CoV-2 (event) 2022-04-03 00:00:00 2022-04-13 14:46:00 Not sure [facility] Tobacco use and exposure 2019-05-20 00:00:00 2019-05-20 00:00:00 Smokeless tobacco non-user [facility] Sex Assigned At 1940 00:00:00 1940 00:00:00 [facility] Smoking Status Start Date Stop Date Source Never smoked tobacco [facility] Medications Ordered Medication Name Filled Medication Name Start Date Stop Date Current Medication? Ordering Clinician Indication Dosage Frequency Signature (SIG) Comments Components Source iopamidol (ISOVUE 370-500 mL) injection 75 mL 2021-06 23:00: 00 04-13 23:00 :00 No [id number] 75mL 75 mL, Intravenou s, ONCE, 1 dose, On Mon04/13/22 at 1700, Routine [facility] ondansetron (ZOFRAN (PF)) injection 4 mg 2021-06 20:30: 00 04-13 20:52 :00 No 4mg 4 mg, Slow IV Push, ONCE, 1 dose, On Mon04/13/22 at 1430, Routine [facility] Simethicone 125 mg 2021-06 00:00: 00 05-14 05:59 :00 No [id number] 125mg Take 1 capsule by mouth after meals and at bedtime as needed for Gas for up to 30 days. [facility] fenofibrate 145 mg tablet 06-19 12:02: 18 Yes 145mg Take 145 mg by mouth daily. [facility] amLODIPine 10 mg tablet 06-19 12:02: 18 Yes 10mg Take 10 mg by mouth daily. [facility] benazepril 20 mg tablet 06-19 12:02: 18 Yes 20mg Take 20 mg by mouth daily. [facility] Levothyroxi ne 125 mcg capsule 06-19 12:02: 18 Yes Take by mouth. [facility] Multivitami ns with Fluoride (MULTI-JAYNE MIN ORAL) 06-19 12:02: 18 Yes Take by mouth. [facility] cholecalcif ross, vitamin D3, (D-3-5 ORAL) 06-19 12:02: 18 Yes Take by mouth. [facility] febuxostat (ULORIC) 80 mg tablet 06-19 12:02: 18 Yes 80mg Take 80 mg by mouth daily. [facility] fenofibrate 145 mg tablet 06-19 12:02: 18 Yes 145mg Take 145 mg by mouth daily. [facility] amLODIPine 10 mg tablet 06-19 12:02: 18 Yes 10mg Take 10 mg by mouth daily. [facility] benazepril 20 mg tablet 06-19 12:02: 18 Yes 20mg Take 20 mg by mouth daily. [facility] Levothyroxi ne 125 mcg capsule 06-19 12:02: 18 Yes Take by mouth. [facility] Multivitami ns with Fluoride (MULTI-JAYNE MIN ORAL) 06-19 12:02: 18 Yes Take by mouth. [facility] cholecalcif ross, vitamin D3, (D-3-5 ORAL) 06-19 12:02: 18 Yes Take by mouth. [facility] febuxostat (ULORIC) 80 mg tablet 06-19 12:02: 18 Yes 80mg Take 80 mg by mouth daily. [facility] Vital Signs Vital Name Observation Time Observation Value Comments Celina cisse Systolic blood pressure 2022-04-13 23:00:00 133 mm[Hg] [facility] Diastolic blood pressure 2022-04-13 23:00:00 54 mm[Hg] [facility] Heart rate 2022-04-13 23:00:00 62 /min [facility] Respiratory rate 2022-04-13 23:00:00 13 /min [facility] Oxygen saturation in Arterial blood by Pulse oximetry 2022-04-13 23:00:00 95 /min [facility] Body temperature 2022-04-13 19:31:00 36.89 Lynnette [facility] Body weight 2022-04-13 19:31:00 67.132 kg [facility] BMI 2022-04-13 19:31:00 27.07 kg/m2 [facility] Procedures Procedure Date / Time Performed Performing Clinicia n Source CT ABDOMEN PELVIS W CONTRAST 2022-04-13 21:58:00 Angel Campbell [facility] LIPASE 2022-04-13 20:44:00 Angel Campbell [facility] COMP. METABOLIC PANEL (09130) 2022-04-13 20:44:00 Angel Campbell [facility] CBC WITH DIFF 2022-04-13 20:44:00 Angel Campbell [facility] URINALYSIS 2022-04-13 20:44:00 Angel Campbell [facility] CONSENT/REFUSAL FOR DIAGNOSIS AND TREATMENT 2022-04-13 19:12:48 Doctor Unassigned, [place]ou [facility] Encounters Start Date/Time End Date/Time Encounter Type Admission Type Attending [facility] Care Department Encounter ID Source 2022-04-13 13:33:00 2022-04-13 17:15:00 Emergency X ANGEL CAMPBELL [facility] ERT [id number] [facility] 2022-04-13 13:33:00 2022-04-13 17:15:00 Emergency Angel Campbell [facility] [id number] [facility] 2022-04-13 00:00:00 2022-04-13 00:00:00 Orders Only Doctor Unassigned, Bejou [facility] [id number] [facility] 2019-06-19 09:48:00 2019-06-19 12:02:00 Hospital Encounter Nicola Talbot [facility] [id number] 2019-06-18 00:00:00 2019-06-18 00:00:00 Orders Only Doctor Unassigned, [place]ou [facility] [id number] Results Test Description Test Time Test Comments Results Result Co mments Source [facility] 21:46:00* Test Item Value Reference Range Interpretation Comme nts LIPASE (test code = 7866996097) 148 U/L 0-220 Lab Interpretation (test cod e = 27512-9) Normal [facility] [id number] 21:15:53* Test Item Value Reference Range Interpretation [...] 34.0 g/dL 31.6-35.1 RDW-SD (test code = 40938-7) 40.3 fL 39.0-49.9 RDW-CV (test code = 788-0) 12.8 % 12.0-15.5 PLT (test code = 777-3) See_Comment [Automated messa ge] The system which generated this result transmitted reference range: 166 - 358 10*3/?L. The reference range was not used to interpret this result as normal/abnormal. MPV (test code = 75346-4) 11.0 fL 9.5-12.9 NRBC/100 WBC (test code = 2817586688) See_Comment [Automated Screenie ssage] The system which generated this result transmitted reference range: 0.0 - 10.0 /100 WBCs. The reference range was not used to interpret this result as normal/abnormal. NRBC x10^3 (test code = 5891427244) See_Comment [Automated [employer]] The system which generated this result transmitted reference range: 10*3/?L. The reference range was not used to interpret this result as normal/abnormal. GRAN MAT (NEUT) % (test code = 770-8) 68.2 % IMM GRAN % (test code = 0893795631) 0.30 % LYMPH % (test code = 736-9) 20.7 % MONO % (test code = 5905-5) 9.5 % EOS % (test code = 713-8) 0.5 % BASO % (test code = 706-2) 0.8 % GRAN MAT x10^3(ANC) (test code = 2009593973) 2.50 10*3/uL 1.88-7.09 IMM GRAN x10^3 (test code = 4040973128) 0.00-0.06 LYMPH x10^3 (test code = 731-0) 0.76 10*3/uL 1.32-3.29 L MONO x10^3 (test code = 742-7) 0.35 10*3/uL 0.33-0.92 EOS x10^3 (test code = 711-2) 0.03-0.39 L BASO x10^3 (test code = 704-7) 0.03 10*3/uL 0.01-0.07 Lab Interpretation (test code = 90360-6) Abnormal [facility]
[2023-08-05] MEDS: VANCOMYCIN HCL 125 MG CAPSULE PO SCH (17:45)
[2023-08-05] MEDS: SIMETHICONE 80 MG CHEWABLE TAB PO SCH (20:12)
[2023-08-05] MEDS: POTASSIUM CL SA 10 MEQ TAB PO SCH (20:12)
[2023-08-05] MEDS: levETIRAcetam 500 MG TAB PO SCH (20:12)
[2023-08-05] MEDS: GABAPENTIN 300 MG CAP PO SCH (20:12)
[2023-08-05] MEDS: methocarbamoL 500 MG TAB PO PRN (20:50)
[2023-08-05] MEDS: IPRATROPIUM BROM 0.5MG/2.5ML NEB PRN (21:39)
[2023-08-05] MEDS: ALBUTEROL 2.5 MG/3 ML NEB SOL NEB PRN (21:39)
[2023-08-05] MEDS: TRAZODONE 50 MG TABLET PO SCH (21:56)
[2023-08-05 23:21] LABS: Sqamous Epithelial None Seen /HPF (None Seen); Urine Bacteria None Seen /HPF (<20); Urine Bilirubin NEGATIVE (Negative); Urine Blood Negative (Negative); Urine Clarity Clear (Clear); Urine Color Light-Yellow (Yellow); Urine Culture Reflex Order NOT NEEDED; Urine Glucose NEGATIVE (Negative); Urine Ketones NEGATIVE (Negative); Urine Micro Reflex YN NO BILL MICROSCOPIC; Urine Mucus Slight /HPF (None Seen); Urine Nitrite NEGATIVE (Negative); Urine Protein NEGATIVE (Negative); Urine RBC <5 /HPF (None Seen); Urine Urobilinogen Normal (Normal); Urine WBC <5 /HPF (<5)
[2023-08-06 07:38] LABS: Absolute Basophils 0.1 K/uL (0-0.5); Absolute Eosinophils 0.2 K/uL (0-0.5); Absolute Monocytes 0.5 K/uL (0.1-1.3); Absolute Neutrophil 3.6 K/uL (1.8-8.0); Basophils % 1.3 % (0-1.3); Eosinophils % 4.3 % (0-4.4); Hematocrit 28.1 % (36.0-45.0); Hemoglobin 9.5 g/dL (12.0-15.0); Lymphocytes % 18.9 % (15.3-44.8); MCH 28.8 pg (27.0-35.0); MCHC 33.9 g/dL (32.0-36.0); MPV 8.7 fL (7.6-11.3); Neutrophils % 65.5 % (41.7-73.7); Nucleated Red Blood Cells % 0.1 % (0-0); Platelets 255 thou/uL (152-406); RBC Red Blood Cell Count 3.31 M/uL (3.86-4.86); Red Cell Distribution Width 13.3 % (12.1-15.2)
[2023-08-06 07:51] LABS: Anion Gap 9.5 mEq/L (5.0-15.0); Magnesium 1.5 mg/dL (1.6-2.4); Potassium 3.5 mEq/L (3.5-5.1)
[2023-08-06 08:08] LABS: Prealbumin 9.5 mg/dL (20-40)
[2023-08-06] MEDS: AMLODIPINE 5 MG TAB PO SCH (09:07)
[2023-08-06] MEDS: MAGNESIUM SULFATE 1 gm IVPB 1 GM/100 ML BAG IV ONE (13:35)
[2023-08-06] MEDS: ALBUTEROL INHALER 200 PUFF/6.7 GM IH SCH (14:34)
--- NOTE | 2023-08-06 20:05 | HP ---
Date of Admission: 08/05/2023 Time Of Service: 12 p.m. Chief Complaint: "I fell, hit my head, and bled in my head." History Of Present Illness: Ms. Martinez is an 83-year-old right-handed patient with hypertens ion, gout, and asthma, who was in very good health, ambulating independently and regularly exercise b y walking the local mall. She walks maybe 2 or 3 miles each time she walks. About mid June, she slipped and fell hitting her head, nose, and her arms. She had a nosebleed and at that point did not seek medical attention. However, subsequently, she had intermittent weakness, more on the right brandon e and over the next 2 weeks, the patient had multiple emergency department visits, but had negative i maging at that time and was released. Around the 27 of July, family noted she was dragging her right feet and the right arm. She said it was weaker. She had difficulty writing because the right arm did not do well. She said her sons who are left-handed, already had poor handwriting and she fe lt hers looked like theirs. She was seen in the emergency room of [facility], where a CT sc an identified a 20 mm thick left subdural hematoma with 6 to 7 mm of midline shift from left to right . She was transferred to [facility] for higher level of care. On the , she had craniotomy for evacuation of subdural blood. She did have elevated blood pressures in the operating room and did receive a propofol as she had surgery. [facility], was started on dexamethasone on the and extubated on . She had chest x-ray identifyi ng on the a right-sided atelectasis and she received nebulizer treatment. In addition, she had hypokalemia and hypomagnesemia and hypophosphatemia. It is noted that the patient did develop C diff and had loose stools and was found to be positive on the July. She was treated with van comycin to complete 10 days. She had a slightly low hemoglobin of 10, hematocrit of 29, and otherwis e did require careful monitoring and reimaging to evaluate the postoperative potential changes from s urgery. She was evaluated by Physical and Occupational Therapy and found to be requiring moderate as sistance for rolling in bed, going from supine to sit, sit to stand, and to transfer. She was only a ble to ambulate about 40 feet with moderate assistance using a rolling walker. She did have some dif ficulty with stride length and elevation of the foot and had impaired balance with the posterior lean and high risk of fall and further injury. In addition, lower body dressing, toileting were at moder ate assistance level. She was seen by Speech and cleared. However, she did feel there was some issu es of swallowing and may still require speech therapy if dysphagia tends to recur, especially after i ntubation. Furthermore, given the left-sided impact of the blood, there is a potential injury to bra in that can lead to areas of memory loss, cognitive deficits, and expressive and receptive aphasia. As a result, she is admitted to the inpatient rehabilitation unit for physical, occupational, and spe ech therapy along with aggressive medical management in a safe place where she [facility] Past Medical History: Hypertension, asthma, gout. Surgical History: Left craniotomy for evacuation of subdural blood with duraplasty. Allergies: TRAMADOL, PENICILLIN, ACETAMINOPHEN, CODEINE, IBUPROFEN. Medications: Albuterol nebulizer 2.5 mg every 4 hours as needed, Norvasc 5 mg daily, gabapentin 300 mg 3 times daily, Atrovent 0.5 mg nebulizer every 4 hours, Keppra 500 mg twice daily, magnesium now s he is receiving 1 g and she has some low magnesium, she will have 400 mg twice daily. Robaxin 500 mg 3 times daily, HemocytePlus one tablet daily, Ensure Enlive 237 mL daily, potassium 20 mEq twice darling ly for low potassium, simethicone for gas 80 mg 3 times daily, Desyrel 50 mg at night for insomnia, a nd vancomycin as noted 125 mg every 6 hours scheduled with vancomycin peak and trough being monitored by the Lab and Pharmacy Service. Family History: Noncontributory. Social History: The patient is independent, exercises regularly. No alcohol, tobacco, or IV drug us e. Lives in single family home. Current Level Of Functioning: Setup assistance for eating, oral hygiene. Moderate assistance for to ileting. Maximum assist for bathing. Contact guard assistance for upper body dressing. Moderate as sistance for lower body dressing and on and off footwear. For rolling qxloe-vo-vcxu, dqax-nt-inswu, uvo-nf-giiwb, all moderate assistance, and going from bed to chair, to toilet to shower, moderate ass istance. Ambulation of 40 feet, moderate assistance with a rolling walker. Laboratory Studies: White blood cell count 5.4, hemoglobin 9.5, hematocrit 28.1, platelets 255. Sod ium 140, potassium 3.5, chloride 109, carbon dioxide 25, BUN is 5, creatinine 0.73, glucose 96, calci um 8.2 which is slightly low. Magnesium 1.5. Again, low albumin 2.0, which is low. Prealbumin 9.5, significantly low. Her urinalysis is completely normal. Physical Examination: Vital Signs: Blood pressure 130/63, pulse 76, respiratory rate 18, temperature 97, oxygen saturation 95%. General: Ms. Martinez is lying in bed. HEENT: She has good hemostasis at the left frontal towards the parietal surgical site with stephanie i n place and good hemostasis. Otherwise, she is normocephalic, atraumatic. Some mild bruising on the face, otherwise unremarkable. Extremities: In terms of the arms and legs, no evidence of any trauma or pain or tenderness to palpa tion in the arms and legs. Abdomen: Soft. Extremities: Show no clubbing, cyanosis, or edema. Lungs: Good air movement. Heart: Regular. Neurological: She is alert, oriented to situation, place, and person. She follows all commands appr opriately. She has no obvious cranial nerve deficits despite her stroke. Her motor exam, despite th e initial weakness reported in the right upper and lower extremity, she feels she is back to her base line and no weakness appreciated in the right upper and lower extremity. Sensation appears intact. Coordination is fair and gait, she will have the physical therapist ambulate her with gait belt to mi nimize the risk of falling and injury. Rehabilitation And Medical Assessment And Plan: Ms. Martinez is admitted to the inpatient rehabilitation unit with impairment category 02. Brain dysfunction, traumatic. Her impairment group code is 02.22 traumatic closed injury. Her etiologic diagnosis subdural hematoma. Her comorbid decreased mobility , decreased physical functioning, hypertension, postoperative anemia. She has tinnitus, low magnesiu m, low potassium, malnutrition with low prealbumin, hypochloremia, and tinnitus; and Clostridium diff icile, on vancomycin. Plan: 1.She will have physical, occupational, and if need be speech therapy for 3.5 hours, 5 of 7 days. 2.For C diff, we will continue with vancomycin per protocol. 3.For low magnesium, she has 1 g magnesium replacement. She has 400 twice daily as well. 4.To reduce the risk of seizures and for prophylaxis, she is on Keppra 500 mg twice daily. 5.For her atelectasis, she has albuterol and Atrovent nebulizer treatment. 6.She has gabapentin 300 mg 3 times daily for neuropathic pain. She has ferrous sulfate for her ane wesley. 7.Her protein supplementation will be Ensure Enlive 237 mL twice a day for her malnutrition in addit ion to the HemocytePlus. She has Robaxin for muscle spasms and simethicone for excessive gas and tra zodone for insomnia at night. Comorbidities That Are Impacting The Rehabilitation: Her C diff does require her to receive vancomyc in per protocol. She will have blood drawn and vancomycin trough followed and will be adjusting per the hospital protocol. In addition, she has been somewhat impulsive and she is currently at close to the nursing station where nurses can be available to provide assistance immediately. The patient di d make an attempt to get to the closet without help and she was instructed that [facility] prior to every transfer attempt. Rehab Specific Plan: Ms. Martinez will have 3.5 hours, 5 of 7 days of physical, occupational, and speech therapy to improve her ability to transfer from bed to chair, to toilet to shower, and to ambulate 2 50 feet with modified independence, up and down 10 steps with modified independence, propel a wheelch air 250 feet with modified independence, and all cognitive functioning to be performed with modified independence. Ms. Martinez has a good understanding of the process of admission to the inpatient rehabilitation facilit y and how she will benefit from physical and occupation again if need be speech therapy. Given her r isk of complications from her multiple medical condition including excessive bleeding in the brain an d severe malnutrition retarding healing, C diff, which may lead to more diarrhea, and loss of electro lytes, she is at a best served and an acute inpatient rehabilitation facility where medical condition s can be managed as she receives physical therapy. If need be, additional help from the Infectious D isease Service and the Pulmonary Service may be consulted. Given her complex medical condition and r isk of further complications, rehabilitation cannot be safely or affectively carried out at a lower l evel of facility such as halfway. Barriers To Discharge: Currently, she is still on C diff, requiring 10 days of IV vancomycin. She w ill have if need be blood cultures, procalcitonin drawn, and could determine or extend her stay if th at is still required. Length Of Stay: About 10 days. Disposition: Should be home with family and to continue therapy perhaps on outpatient basis dependin g on how well she does. Prognosis: Good. Rehabilitation Goals: 1.Become independent with upper and lower body dressing, toileting, showering, and donning and doffi ng shoes. 2.Independently ambulate 250 feet with a rolling walker. 3.Independently propel a wheelchair 250 feet. 4.Independently go up and down 15 steps with bilateral handrails. 5.Independently perform cognitive functioning including safety awareness, medication management and followup with physicians, for which by the way she has a 14-day followup with Neurosurgery to remove stephanie. 6.The above goals were reviewed with Ms. Martinez and she is in agreement. By signing this document, I acknowledge I have personally performed a full physical examination on Ms Live Martinez no later than 24 hours after her admission to the inpatient rehabilitation facility and determ ined that she is able to tolerate the above course of treatment at an intensive level for a reasonabl e period of time. A detailed individualized plan of care for her will be completed by hospital day 4 based on the pre-admission screen, history and physical, and therapy evaluations. SACHI Voice ID: [id number]
[2023-08-06] MEDS: MAGNESIUM OXIDE 400 MG TAB PO SCH (20:12)
[2023-08-06] MEDS: TAMSULOSIN 0.4 MG SR CAP PO SCH (20:12)
[2023-08-06] MEDS: ENSURE ENLIVE 237 ML CAN PO SCH (20:13)
[2023-08-07] MEDS: ENSURE CLEAR 200 ML CAN PO SCH (07:38)
[2023-08-07] MEDS: FE SULF/FA/VIT B COMP & C TAB PO SCH (07:39)
[2023-08-07] MEDS: FERROUS SULFATE 325 MG TAB PO SCH (07:40)
--- NOTE | 2023-08-07 13:20 | RAD REPORT ---
EXAM DESCRIPTION: CT - Head Brain Wo Cont - 08/07/2023 12:57 pm CLINICAL HISTORY: R/O bleeding COMPARISON: Head Brain Wo Cont dated 07/27/2023; Facial Bones W/ Mpr dated 06/12/2023 TECHNIQUE: Noncontrast head CT images were obtained without IV contrast. Multiplanar reformats were generated and reviewed. All CT scans are performed using dose optimization technique as appropriate and may include automated exposure control or mA/KV adjustment according to patient size. FINDINGS: Since the 07/2021 24 exam there have been interval changes of left anterior parietal crani otomy and evacuation of the left cerebral convexity subdural hemorrhage. Residual or developing subdu ral hemorrhage with more pronounced hyperdense elements overlying the left parietal convexity posteri or to the craniotomy flap, which measures 4.4 cm in greatest AP dimension and 1.6 cm in thickness. Mild mass-effect upon the adjacent sulci. No parenchymal hemorrhage, mass, or edema. Midline structures are unchanged, with changes of partiall y empty sella again seen. Interval improvement of the degree of mass effect, with minimal residual mass effect upon the left ve ntricular trigone. No residual measurable midline shift. Bates-white matter differentiation is preserved, without evidence of acute infarct. No abnormal extra- axial fluid collections. Mastoid air cells and visualized portions of the paranasal sinuses are clear. No acute bony findings. IMPRESSION: Residual or developing subdural collection posterior to the craniotomy flap overlying th e parietal convexity as described above, likely of subacute chronology. The findings were communicated to Pedro Martin on 08/07/2023 at 13:14 hours.
--- NOTE | 2023-08-07 20:18 | PN ---
Date of Progress Note: 08/07/2023 Time Of Service: 1 p.m. Subjective: Ms. Martinez earlier today was somewhat more confused, had difficulty getting words out, and had some problems using the right hand, especially trying to write. She thought the right hand was somewhat weaker. A CT scan of her head was done. The study was there was no prior immediate postope rative CT scan of the head available for comparison. The patient did have CT scan on the when she fell, had a subdural hematoma. The study identified residual or developing subdural collection posterior to the craniotomy flap overlying the parietal convexity, which is likely to be of subacute chronology. The prior CT scan will be obtained for direct comparison. At the time of my evaluation, she began to return towards a baseline with some very subtle right-sided weakness, but n o difficulty with expression or comprehension or naming. Objective: She denies any fevers, chills, nausea, vomiting. No significant myalgias, arthralgias, r zoraida. She did report some difficulty with words at 1 point, had no headache. No change or loss of vi chasity. Physical Examination: Vital Signs: Blood pressure 119/60, pulse 78, respiratory rate 16, temperature 98.0, oxygen saturati on 96%. Weight 156 pounds, height 5 feet 2 inches, BMI 28.6. General: Ms. Martinez is resting comfortably in bed. She is in no acute distress. Her left parietal to frontal surgical site on the scalp has good hemostasis with stephanie in place. Otherwise, normocepha lic, atraumatic. Sclerae anicteric. Oropharynx pink and moist. Neck: Supple. Chest: Clear. Heart: Regular. Extremities: Show no edema or cyanosis. Neurologic: No loss of visual overton to confrontation. Extraocular movements are intact. Face is s ymmetric with good excursions and smiling. Motor examination, no weakness appreciated on the right o r left upper or lower extremity. Sensory exam intact in upper and lower extremity. She does have so me incoordination in lower extremities. Laboratory Studies: White blood cell count 5.4, hemoglobin 9.5, platelets 255. Sodium 140, potassiu m 3.5, chloride 109, carbon dioxide 25, BUN 5, creatinine 0.73, prealbumin 9.5, albumin 2.0, magnesiu m 1.5, calcium 8.2. Urinalysis is normal. CT scan is as noted. Medications: Albuterol sulfate 1 puff twice daily and nebulizer 2.5 mg every 4 hours as needed, Norv asc 5 mg daily, Ensure Enlive 237 mL twice daily, ferrous sulfate 325 mg daily, gabapentin 300 mg 3 t imes daily, Atrovent nebulizer 0.5 mg nebulizer every 4 hours as needed, Keppra 500 mg twice daily, m agnesium oxide 400 mg twice daily, Robaxin 500 mg 3 times daily, Hemocyte Plus 1 tablet daily, potass ium 20 mEq twice daily, Mylicon 80 mg 3 times daily as needed, Flomax 0.4 mg daily, Desyrel 50 mg at bedtime, vancomycin 125 mg every 6 hours as needed. Progress Made With Physical And Occupational Therapy Along With Speech Therapy: She did have her spe ech assessment. She scored 15 on the BIMS and 26 on the SLUMS indicating mild cognitive impairment. With occupational therapy, she completed bilateral upper extremity strength exercises with red Thera -Band 6 exercises and 2 sets of 10 repetitions. She does have the C. diff and is having exercises do ne in the room with contact isolation. Blood pressure was 115/86 at that time. The patient was havi ng occupational therapy. With physical therapy, she did ambulate 200 feet with no assistive device a nd contact guard assistance, multiple [id number] done with contact guard assistance. Ms. Martinez is an 83-year-old patient with some transient difficulty with words and right-sided weakness and incoordination and CT scan showing likely subacute blood in the posterior left parietooccipital region. Immediate CT scan following surgery will be obtained for direct comparison. Assessment: Ms. Martinez is an 83-year-old patient, admitted to the rehabilitation unit with a traumatic closed head injury and left subdural hematoma that is status post evacuation with craniotomy, who espinoza s had slight fluctuation in cognitive and motor functioning. CT scan of the head shows likely subacu te bleed that will be compared with prior study. She has hypertension, postoperative anemia, malnutr ition, low magnesium, low potassium, tinnitus, and C. diff, on vancomycin. Plan: 1.Continue with physical, occupational, and speech therapy for 3.5 hours, 5 of 7. 2.Continue with vancomycin per protocol. 3.Obtain prior CT scan for comparison with most recent study to see if there is a change. In additi on, there will be a repeat CT scan done in the morning without contrast to compare for stability, lik gema subacute bleed. In addition, magnesium is replaced, potassium replaced. She has gabapentin for neuropathic pain, ferrous sulfate for anemia, protein supplementation for malnutrition, Robaxin for m uscle spasms, simethicone for gas, trazodone for insomnia. Comorbidities That Are Continuing To Impact Rehabilitation: Again, the possibility of seizures do ex ist. She is on Keppra and if there is worsening bleeding, we will do a comparative study and if that is case, she will likely have to go back to surgery in [place]. Otherwise, comorbidities are stable . SHEREEN/LINA Voice ID: [id number] Report ID: [id number]
[2023-08-08 06:30] LABS: Anion Gap 9.9 mEq/L (5.0-15.0); Magnesium 1.5 mg/dL (1.6-2.4); Potassium 3.9 mEq/L (3.5-5.1)
[2023-08-08] MEDS: ENSURE ENLIVE 237 ML CAN PO SCH (07:44)
--- NOTE | 2023-08-08 08:06 | RAD REPORT ---
EXAM DESCRIPTION: CT - Head Brain Wo Cont - 08/08/2023 7:50 am CLINICAL HISTORY: Comparison COMPARISON: Head Brain Wo Cont dated 08/07/2023; Head Brain Wo Cont dated 07/27/2023; Facial Bones W/ M pr dated 06/12/2023 TECHNIQUE: All CT scans are performed using dose optimization technique as appropriate and may inclu de automated exposure control or mA/KV adjustment according to patient size. FINDINGS: Extra-axial hemorrhage at the left parietal lobe measures approximately 16 millimeters in maximal thickness and is unchanged since 08/07/2023. No significant midline shift. No areas of brain edema or evidence of midline shift. Left parietal craniotomy. Mild chronic small vessel ischemic amin ges. Cerebral atrophy which is age appropriate. The paranasal sinuses and mastoids are clear. The calvarium is intact. IMPRESSION: No significant change in volume of the extra-axial hemorrhage along the left parietal lo be. No new hemorrhage identified. No midline shift. Suggest continued close follow-up.
[2023-08-08] MEDS: MAGNESIUM SULFATE 1 gm IVPB 1 GM/100 ML BAG IV ONE (09:08)
--- NOTE | 2023-08-08 21:45 | PN ---
Date of Progress Note: 08/08/2023 Time Of Service: 1:10 p.m. Subjective: Ms. Martinez is doing well today. She was happy that after the repeat head CT scan, she has no worsening in the left posterior subdural hematoma. It is unchanged compared to the study done ab out a day earlier. There is also the CT scan from her immediate postop period. It is available for comparison. Specifically, the study done today showed no significant change in volume of the extra-a xial hemorrhage along the left parietal lobe. There is no new hemorrhage identified. No midline josué ft. Objective: Ms. Martinez denies any fevers, chills, nausea, vomiting. No myalgias, arthralgias. No head ache. No vision changes. No psychiatric complaints. No other positives on a 10 point systems revie w. Physical Examination: Vital Signs: Blood pressure 141/58, pulse 88, respiratory rate 16, temperature 99.2 on forehead, oxy gen saturation 97%. General: Ms. Martinez is resting in bed. She is in no acute distress. HEENT: She does have good hemostasis at the left scalp surgical site where stephanie are in place, oth erwise atraumatic. Abdomen: Soft. Extremities: Show no clubbing, cyanosis, or edema. Heart: Normal regular heart rate. Neurologic: Diffuse weakness in upper and lower extremities, but no focal deficits despite her strok e. She has full visual overton. Laboratory Studies: Sodium 141, potassium 3.9, chloride 112, carbon dioxide 23, BUN 10, creatinine 0 .90, magnesium still low at 1.5, it was also low yesterday, she did receive a gram yesterday and a gr am given today. Her Keppra level is pending. Medications: As noted, she did receive a gram of magnesium IV. She will receive another gram. She is currently on vancomycin 125 mg 6 hours, Desyrel 50 mg at bedtime, Flomax 0.4 mg at bedtime, Mylico n 80 mg 3 times daily, potassium 20 mEq twice daily, Ensure Enlive 237 mL twice daily, Hemocyte Plus 1 tablet with breakfast, Robaxin 500 mg 3 times daily as needed, magnesium oxide 400 mg twice daily, Keppra 500 mg twice daily, Atrovent nebulizer 0.5 mg nebulizer every 4 hours, gabapentin 300 mg 3 bridgett es daily, ferrous sulfate 325 mg daily, Norvasc 5 mg daily, albuterol nebulizer 1 puff every 12 hours as needed, and albuterol nebulized 2.5 mg every 4 hours as needed for shortness of breath. Progress Made With Physical, Occupational, And Speech Therapy: Today with physical therapy, she did complete turning in bed with contact guard assistance. [id number] transfers with contact guard as sistance. Nyo-ny-uigha transfers with contact guard assistance as well. She was able to ambulate 20 0 feet in her room. She does have the contact isolation because of C. diff. With occupational rosi mishra, she played in a therapy session with her sister present. She did hand writing as stroke did affe ct the ability to do fine movement with the hand. She did scissoring exercises, wrote 3 lines of upp er and lower case A and B on back of a sheet within lines to help with her recovery of her coordinati on in right hand. With speech, she worked on improving her organizational thinking. She required mo derate assistance with sequencing for events and completing the task with 60% accuracy. She was inde pendent for working memory of 4 units of information, word finding skills, and divergent and converge nt naming tasks. Ms. Martinez is making progress with physical, occupational, and speech therapy. As CT scan shows no neg ative findings in terms of worsening hemorrhage, study is stable, we will repeat study in a few days. Assessment: Ms. Martinez is an 83-year-old patient in rehabilitation with a subacute left posteroparieta l occipital hematoma after an evacuation and she is making good progress with her physical, occupatio nal, and speech therapy. She has comorbidities of seizure risk, hypertension, C. diff infection, uri nary retention, and anemia. Plan: 1.Physical, occupational, and speech therapy for 3.5 hours, 5 of 7 days. 2.Her list of comorbid conditions are addressed by continuing medications which are noted. Comorbidities That Are Impacting Her Rehabilitation: At this point, the C diff requires her to be in isolation. She will complete the vancomycin course and then the contact isolation will be lifted. In addition, the repeat CT scan is stable. Again, there will be a comparison from the immediate postop CT scan with the most recent one, that addendum should be added by the radiologist. SHEREEN/LINA Voice ID: [id number] Report ID: [id number]
[2023-08-09 05:04] LABS: Absolute Basophils 0.1 K/uL (0-0.5); Absolute Eosinophils 0.2 K/uL (0-0.5); Absolute Lymphocytes (CBC) 1.3 K/uL (0.7-4.9); Absolute Monocytes 0.4 K/uL (0.1-1.3); Basophils % 1.3 % (0-1.3); Eosinophils % 2.6 % (0-4.4); Hematocrit 28.6 % (36.0-45.0); Hemoglobin 9.8 g/dL (12.0-15.0); Lymphocytes % 18.6 % (15.3-44.8); MCH 29.3 pg (27.0-35.0); MCHC 34.3 g/dL (32.0-36.0); MCV 85.3 fL (80-100); MPV 8.6 fL (7.6-11.3); Monocytes % 5.5 % (3.3-12.3); Nucleated Red Blood Cells % 0.1 % (0-0); Platelets 318 thou/uL (152-406); RBC Red Blood Cell Count 3.35 M/uL (3.86-4.86); Red Cell Distribution Width 13.5 % (12.1-15.2)
[2023-08-09 05:14] LABS: Magnesium 1.7 mg/dL (1.6-2.4)
[2023-08-09] MEDS: cloNIDine HCL 0.1 MG TAB PO PRN (08:26)
--- NOTE | 2023-08-09 22:03 | PN ---
Date of Progress Note: 08/09/2023 Time Of Service: 1:00 p.m. Subjective: Ms. Martinez is resting in her bed. Her sister is at bedside. She had questions and the sister had questions about the prior scan, about her not receiving an upright shower, and some issues about the room and the pivot tiles on the floor. Those were addressed. She reports no significant changes in her pain level or loss of function, which is some mild incoordination in the right upper extremity. She had no new complaints. The results of her scans that is immediately postop and the 2 CT scans done in the hospital were discussed and showing continued improvement in the left sided subdural hematoma and evacuation. Review of Systems: No fevers, chills, nausea, vomiting. No myalgias, arthralgias, rash, headache, weight change. Physical Examination: Vital Signs: Blood pressure 135/62, pulse 81, respiratory rate 16, temperature is 98.2, oxygen saturation 99%. General: Ms. Martinez again is resting comfortably. She has sutures in place. The sutures will be removed around 14 days after the surgery, which is coming up next week. She is also concerned about her going home this weekend and wanted to leave next Monday as she would be at home by herself. HEENT: Otherwise, she is atraumatic. Sclerae anicteric. Oropharynx is moist. Neck: Supple. Extremities: She has no significant edema, cyanosis, or clubbing. Laboratory Studies: White blood cell count 7.0, hemoglobin 9.8, hematocrit 28.6, platelets 318. Sodium 139, potassium 4.0, chloride 110, carbon dioxide 104, BUN 13, creatinine 1.01, glucose 97, calcium 9.3. Magnesium now normal at 1.7. Head CT scan that was done yesterday as noted, showed improvement. Medications: The patient did note that at home she was on Synthroid. However, it was not restarted while she was at [facility]. The patient's sister will obtain the specific dosage and that may be restarted at that time. Otherwise, all of her medications have been reviewed and remain unchanged. She has had 32 doses of vancomycin ordered from 08/05/2023 to 08/13/2023. Progress Made With Physical And Occupational Therapy: Today with physical therapy, she ambulated 150 feet with a rolling walker with minimum assistance. She did multiple sit to stand transfers and [id number] transfers with contact guard assistance. With occupational therapy, ambulated to the toilet with a rolling walker with standby assistance, did transfers 3 times. She did improve her cursive handwriting and dynamic standing balance unsupported. Today with speech therapy, she sequenced 4 steps with 7% accuracy and minimum assistance. She demonstrated appropriate word retrieval ability during conversation with 100% of the times without cues. Ms. Martinez is making great progress with physical, occupational, and speech therapy and pain is managed. She is sleeping well. Bowel movements are well. No other complaints there. Assessment: Ms. Martinez is an 83-year-old patient in the rehabilitation unit with the left hemispheric subdural hematoma, status post evacuation and she has a seizure prophylaxis and has had no seizures while hospitalized. Hypertension; Clostridium difficile, on antibiotics; and urinary retention with anemia. Plan: 1. Continue physical, occupational, and speech therapy for 3.5 hours, 5/7 days. 2. Continue with her vancomycin regimen as scheduled, Flomax 0.4 mg at night, trazodone 50 mg at night for insomnia, Robaxin 500 mg 3 times a day for muscle spasms, Keppra 500 mg twice daily for seizure prophylaxis, gabapentin 300 mg 3 times daily for neuropathic pain, ferrous sulfate 325 mg daily for iron deficiency anemia, Norvasc 5 mg daily, albuterol 1 puff every 12 hours as needed. Noted, she has clonidine to help keep the systolic blood pressure less than 140 and is given actually at systolic of 150 and higher. Comorbidities That Are Impacting Her Rehabilitation: As noted, she has multiple comorbidities. Her treatment with antibiotics will continue with IV and her isolation will be done in 10 days come on this weekend. She is doing well, but will be at home by herself. We will work hard to get her to become independent and she may require extended stay to around next week, perhaps on Monday. SHEREEN/LINA Voice ID: [id number] Report ID: [id number] TAMI
[2023-08-10 05:35] LABS: Absolute Basophils 0.1 K/uL (0-0.5); Absolute Eosinophils 0.2 K/uL (0-0.5); Absolute Lymphocytes (CBC) 1.2 K/uL (0.7-4.9); Absolute Monocytes 0.5 K/uL (0.1-1.3); Absolute Neutrophil 3.5 K/uL (1.8-8.0); Basophils % 1.4 % (0-1.3); Eosinophils % 4.1 % (0-4.4); Hemoglobin 9.3 g/dL (12.0-15.0); Lymphocytes % 22.1 % (15.3-44.8); MCH 29.1 pg (27.0-35.0); MCHC 34.2 g/dL (32.0-36.0); MCV 85.1 fL (80-100); MPV 7.8 fL (7.6-11.3); Monocytes % 8.2 % (3.3-12.3); Neutrophils % 64.2 % (41.7-73.7); Platelets 320 thou/uL (152-406); RBC Red Blood Cell Count 3.18 M/uL (3.86-4.86); Red Cell Distribution Width 13.4 % (12.1-15.2)
[2023-08-10 05:59] LABS: Albumin 2.3 g/dL (3.4-5.0); Anion Gap 8.7 mEq/L (5.0-15.0); Magnesium 1.7 mg/dL (1.6-2.4); Potassium 3.7 mEq/L (3.5-5.1); Prealbumin 14.2 mg/dL (20-40)
[2023-08-10] MEDS: ENSURE CLEAR 200 ML CAN PO SCH (07:58)
--- NOTE | 2023-08-10 20:30 | PN ---
Date of Progress Note: 08/10/2023 Time Of Service: 3 p.m. Subjective: Ms. Martinez is lying in bed. She says she is doing much better today. She denies any sign ificant pain at the surgical site on the head. She is happy she will be extending her stay from this weekend to next Monday and has no new complaints. Review of Systems: No fevers, chills, nausea, vomiting. No myalgias, arthralgias. No new findings and the surgical sit e has good hemostasis on top of her head. Physical Examination: Vital Signs: Blood pressure 147/66, pulse 81, respiratory rate 16, temperature 97, oxygen saturation 98. Weight 156 pounds, height 5 feet 2 inches, BMI 28.6. General: Ms. Martinez is lying in bed. She is in no acute distress. HEENT: The surgical site on top left of her head has good hemostasis. Lee in place. Otherwise, normocephalic. Sclerae anicteric. Oropharynx moist. Neck: Supple. Chest: Clear. Extremities: No significant edema, cyanosis, or clubbing. Neurologic: She has incoordination and no focal deficits. Her big issue is getting her thoughts and words out. She says at times she would think of the word and would have difficulty getting it out a nd for instance if asked to give 5 words beginning with same letter, she may be able to get up to 3 a nd then go somewhat blank. Also, has difficulty naming objects. There is some slight incoordination , especially as she tries to write with the right hand. Laboratory Studies: White blood cell count 5.5, hemoglobin 9.3, hematocrit 27, platelets 320. Sodiu m 137, potassium 3.7, chloride 111, carbon dioxide 21, BUN 15, creatinine 0.88. Prealbumin increased to 14.2 from 9.5, 4 days ago. Albumin improved from 2.0 to 3.3, also 4 days ago and magnesium impro ck from 1.5 to 1.7 and this is over 4 days. X-ray/imaging: No new x-rays or imaging. Medications: Medications have been reviewed and remain unchanged. She is completing vancomycin for her C. diff GI infection. She is actually still having loose stools, maybe 3 or 4. She says about g reenish or yellowish color and is still on the vancomycin. Infectious Disease nurse will be involved to help determine when the patient can be off isolation. Currently, she does still have 10 days of total isolation, which will end on Monday, but she will have the input from Infectious Disease Serv ice. Progress Made With Her Physical And Occupational Therapy: Today with occupational therapy, she was a ble to be independent for toilet hygiene, bathing, upper body and lower body dressing, and ADLs. She did have sit unsupported at the edge of bed. She was able to get 4 words that begin with first 12 l etters of the alphabet. She wrote them down in cursive and she used working memory for 3 items with 80% accuracy and minimum assistance. Organizational thinking skills were used during convergent bhavik ng task with 90% accuracy and minimum assistance. Ms. Martinez is making good progress with physical and occupational therapy, and she is recovering from h er subdural hematoma, status post evacuation. She does have some difficulty with naming, verbal flue ncy, and comprehension. She also has mild incoordination in the right upper extremity and difficulty with her balance and coordination of gait. Assessment: Ms. Martinez is an 83-year-old patient in the rehabilitation unit with left hemispheric subd ural hematoma, status post evacuation. She is on seizure prophylaxis. She otherwise has some expres sive and receptive aphasia. She has incoordination of right upper and lower extremity. She has hype rtension. She has C diff colitis and is on vancomycin per protocol. She has isolation for 10 days. She has urinary retention, anemia, neuropathic pain, hypertension. Plan: 1.Continue with physical, occupational, and speech therapy for 3.5 hours, 5 of 7 days. 2.Vancomycin is to be continued per protocol, Keppra 500 mg twice daily, Robaxin 500 mg 3 times annmarie y, trazodone 50 mg at night for insomnia, Norvasc 5 mg daily for hypertension. She has albuterol neb ulizer. Comorbidities That Are Impacting Her Rehabilitation: Currently, the expressive aphasia and receptive aphasia is an issue based on stroke, but that is improving. In addition, she does have the C. diff infection, treated with antibiotics and is on isolation. She is looking forward to being able to com e out of the room, although today she did have an upright shower, but doing therapy outside will be o ff better, the patient does say, and she does have her stay extended to next Monday from this d ay. SHEREEN/LINA Voice ID: [id number] Report ID: [id number]
[2023-08-11 07:38] LABS: Anion Gap 8.9 mEq/L (5.0-15.0); Magnesium 1.8 mg/dL (1.6-2.4); Potassium 3.9 mEq/L (3.5-5.1)
--- NOTE | 2023-08-11 13:16 | P.RH.PN ---
Estimated Length of Stay: 11 Expected Discharge Date: 08/15/23 Discharge Disposition Plan: Home Family Support: Yes Skilled Nursing Goal: Mobility, Transfers, Self Care Vital Signs: Last Vital Signs Temp 97.8 F 08/11/23 08:00 Pulse 79 08/11/23 08:00 Resp 16 08/11/23 08:00 BP 153/67 H 08/11/23 08:00 Pulse Ox 93 08/11/23 08:00 Laboratory: Laboratory Last Values WBC 5.50 thou/uL (4.3-10.9) 08/10/23 05:05 RBC 3.18 M/uL (3.86-4.86) L 08/10/23 05:05 Hgb 9.3 g/dL (12.0-15.0) L 08/10/23 05:05 Hct 27.0 % (36.0-45.0) L 08/10/23 05:05 MCV 85.1 fL (80-100) 08/10/23 05:05 MCH 29.1 pg (27.0-35.0) 08/10/23 05:05 MCHC 34.2 g/dL (32.0-36.0) 08/10/23 05:05 RDW 13.4 % (12.1-15.2) 08/10/23 05:05 Plt Count 320 thou/uL (152-406) 08/10/23 05:05 MPV 7.8 fL (7.6-11.3) 08/10/23 05:05 Neutrophils % 64.2 % (41.7-73.7) 08/10/23 05:05 Lymphocytes % 22.1 % (15.3-44.8) 08/10/23 05:05 Monocytes % 8.2 % (3.3-12.3) 08/10/23 05:05 Eosinophils % 4.1 % (0-4.4) 08/10/23 05:05 Basophils % 1.4 % (0-1.3) H 08/10/23 05:05 Absolute Neutrophils 3.5 K/uL (1.8-8.0) 08/10/23 05:05 Absolute Lymphocytes 1.2 K/uL (0.7-4.9) 08/10/23 05:05 Absolute Monocytes 0.5 K/uL (0.1-1.3) 08/10/23 05:05 Absolute Eosinophils 0.2 K/uL (0-0.5) 08/10/23 05:05 Absolute Basophils 0.1 K/uL (0-0.5) 08/10/23 05:05 Sodium 138 mEq/L (136-145) 08/11/23 07:08 Potassium 3.9 mEq/L (3.5-5.1) 08/11/23 07:08 Chloride 112 mEq/L (98-107) H 08/11/23 07:08 Carbon Dioxide 21 mEq/L (21-32) 08/11/23 07:08 Anion Gap 8.9 mEq/L (5.0-15.0) 08/11/23 07:08 BUN 14 mg/dL (7-18) 08/11/23 07:08 Creatinine 0.95 mg/dL (0.55-1.02) 08/11/23 07:08 Est GFR (CKD-EPI) 60 ml/min (=/>90) L 08/11/23 07:08 Glucose 97 mg/dL (74-106) 08/11/23 07:08 Calcium 8.8 mg/dL (8.5-10.1) 08/11/23 07:08 Magnesium 1.8 mg/dL (1.6-2.4) 08/11/23 07:08 Albumin 2.3 g/dL (3.4-5.0) L 08/10/23 05:05 Prealbumin 14.2 mg/dL (20-40) L 08/10/23 05:05 Urine Color Light-yellow (Yellow) 08/05/23 20:35 Urine Clarity Clear (Clear) 08/05/23 20:35 Urine pH 5.0 (5.0-7.0) 08/05/23 20:35 Ur Specific [place] 1.010 (1.005-1.030) 08/05/23 20:35 Glucose (UA)(Auto) Negative (Negative) 08/05/23 20:35 Urine Ketones Negative (Negative) 08/05/23 20:35 Urine Blood Negative (Negative) 08/05/23 20:35 Urine Nitrite Negative (Negative) 08/05/23 20:35 Urine Bilirubin Negative (Negative) 08/05/23 20:35 Urine Urobilinogen Normal (Normal) 08/05/23 20:35 Ur Leukocyte Esterase Negative Fredo/uL (Negative) 08/05/23 20:35 Urine RBC <5 /HPF (None Seen) 08/05/23 20:35 Urine WBC <5 /HPF (<5) 08/05/23 20:35 Ur Squamous Epith Cells None seen /HPF (None Seen) 08/05/23 20:35 Urine Bacteria None seen /HPF (<20) 08/05/23 20:35 Urine Mucus Slight /HPF (None Seen) 08/05/23 20:35 Urine Culture Reflexed Not needed 08/05/23 20:35 Urine Total Protein Negative (Negative) 08/05/23 20:35 Levetiracetam 37.1 mcg/mL (6.0-46.0) 08/08/23 05:10 Weight: 156 lb 3.2 oz Wound Present: No Closed Surgical Incision Present: Yes Negative Pressure Wound Therapy Present: No Physician Update: Labs are stable. Her stephanie can be removed next Monday. Interval head CT showed improved subdural hematoma. Mild work finding difficulties. Met all ADL goals. Handwriting is improved. Walking 200' with RW and without an assistive device and SBA. Summary: Patient's care plan and supervisor intermediates goals have been reviewed and revised as necessary. Please see the Rehabilitation Signature page for all necessary signatures.
[2023-08-12] MEDS: LEVOTHYROXINE SOD 0.1 MG TAB PO SCH (05:01)
[2023-08-12] MEDS: BENAZEPRIL 20 MG TAB PO SCH (07:23)
[2023-08-12] MEDS: FEBUXOSTAT 40 MG PO SCH (07:24)
[2023-08-12 08:41] VITALS: BMI 26.9
--- NOTE | 2023-08-12 19:47 | PN ---
Subjective: The patient's son is at the bedside. She said today was very good. She has no complain ts. She was glad she was able to get an extended stay to continue to improve, so she can return home safely with the help of her family. She has no new complaints. Objective: No fevers, chills, nausea, vomiting. No significant myalgias, arthralgias. No rash. No headache. No loss of vision or change in vision. Physical Examination: Vital Signs: Blood pressure 118/60, pulse of 69, respiratory rate 16, temperature 97.2, oxygen satur ation 96%. Weight 147 pounds, height 5 feet 2 inches, BMI 26.9. General: Ms. Martinez is lying in bed. She is in no acute distress. HEENT: The stephanie are still in place in the left top of her head extending from the frontal to bertram etal region. There is good hemostasis. No evidence of any infection or drainage from there. Otherw ise she is normocephalic and atraumatic. Extremities: She has no clubbing, cyanosis, or edema noted. Her right-sided incoordination is impro ving. Abdomen: Soft. Extremities: No edema. Laboratory Studies: Today, no new laboratory studies. X-ray And Imaging: No new x-rays or imaging. Medications: Medications have been reviewed and remain unchanged. Progress With Her Physical And Occupational Therapy: Today she ambulated 400 feet with contact guard assistance. She did have some trouble turning and had frequent instances of loss of balance when tu rning to the right. She did complete gait training with a rolling walker and without an assistive de vice. She did have decreased christian when not using the assistive device. Regarding her occupationa l therapy, she was very worried about not being able to drive because of the stroke and the therapist did work on some coordination activity and she said though failed some of the coordination activity in terms of being able to completely shift from one area of processing to the next she had a deficien cy of about 4 minutes, difficulty with cognitive flexibility and processing speed and alternating att ention. Ms. Martinez is making good progress with physical and occupational therapy along with her speech. [facility], she is still requiring a lot more therapy to be able to be safe and independent. At this point, she is not recommended to be able to drive and again at home, she should have continued therapy with family available to minimize risk of falling and 24 hour 7 day a week at least for the first few week s at home. Assessment: Ms. Martinez is an 83-year-old patient in the rehabilitation unit with a left hemispheric nuñez bdural hematoma, status post evacuation. She does have some residual and receptive aphasia, right-si ded incoordination and weakness. In addition, she has C diff and is on vancomycin to complete today. She has anemia, neuropathic pain, hypertension, muscle spasms. Plan: Continue with physical therapy for 3-1/2 hours, 5/7 days. Continue with Keppra, Robaxin, traz odone, Norvasc, albuterol nebulizers in addition to clonidine 0.1 mg for systolic blood pressure grea ter than 140, gabapentin 300 mg 3 times daily for neuropathic pain. She does take Atrovent nebulizer along with albuterol nebulizer, Synthroid for hypothyroidism, magnesium oxide for muscle spasms nelson g with Robaxin, HemocytePlus for her anemia, Mylicon for gas pain, Flomax for urinary retention, traz odone for insomnia, again complete the vancomycin, which is to be done actually tomorrow. Comorbidities That Are Impacting Rehabilitation: Her loss of balance especially when turning to the right is worrisome for high risk of falling when at home and is recommended that she use a walker at all times and have family present as she does her therapy at least for the next 2 weeks after her dis charge home and she also will complete her antibiotics. However, she did say she is still having loo se stools and that may continue for a few days even after antibiotics are complete. Will follow up w the [facility] Infectious Disease nurse to determine if additional treatment may be warranted while the patient is still having diarrhea and will have Imo dium available. SHEREEN/LINA Voice ID: [id number] Report ID: [id number]
[2023-08-14] MEDS ORDERED: ACETAMINOPHEN 500 MG TAB PO PRN (09:26)
[2023-08-14] MEDS: LIDOCAINE/PRILOCAINE CREAM TOP SCH (11:59)
--- NOTE | 2023-08-14 15:07 | RAD REPORT ---
EXAM DESCRIPTION: CT - Head Brain Wo Cont - 08/14/2023 1:44 pm CLINICAL HISTORY: Headache COMPARISON: August 08, 2023 TECHNIQUE: Computed axial tomography of the head was obtained. IV contrast was not requested. All CT scans are performed using dose optimization technique as appropriate and may include automated exposure control or mA/KV adjustment according to patient size. FINDINGS: Left craniotomy. Small subacute subdural hematoma along the left convexity has diminished in density. It has minimally diminished in size No shift abdomen of the midline structures The ventricles are normal in caliber No extra-axial fluid collection is noted. . Fluid within the sinuses/ mastoids is not seen. IMPRESSION: Small subacute subdural hematoma along the left convexity has diminished in density. It is minimally diminished in size. No re- bleed noted
--- NOTE | 2023-08-14 20:43 | PN ---
Date of Progress Note: 08/14/2023 Time Of Service: 1 p.m. Subjective: Ms. Martinez is resting comfortably in bed. She does have some numbing medications, a cream actually over the left head where her stephanie are to be removed. She was complaining about the staf f removing dressing forcefully causing some pain at the top of her head and she has some medication f or that. She did have a CT scan done earlier and was compared two prior studies done on the and on the 06 of August, of course today is the 13 of August and that study showed a small subacute subd ural hematoma along the left convexity had diminished in density, minimally diminished in size and th ere was no rebleeding noted. This was communicated with the patient and she was happy about the find ings. Objective: Mild headache and some pain in the left top of her head and she had some intermittent num bness and weakness in the right upper and lower extremity which is all related to her subdural hemato ma. No other positives on her review of systems. Physical Examination: Vital Signs: Blood pressure 118/56, pulse 77, respiratory rate 18, temperature 97.4, oxygen saturati on 97%. General: Ms. Martinez is lying in bed. Sister at bedside. She is in no significant distress. She does have some slight discomfort at the head on the left where the bandage was removed and she was about to have the stephanie removed from the left side of her head. Otherwise, mild residual weakness in the right upper and lower extremity with sensory loss in the right upper extremity compared to the left and the right face compared to the left face. Equal sensation in the legs bilaterally. Laboratory Studies: No new laboratory studies. X-ray Imaging: As noted above. Medications: Reviewed and remain unchanged except she has a lidocaine cream applied to the left head as the stephanie were removed. Progress Made With Physical And Occupational Therapy: Today, with physical therapy, she ambulated mu ltiple times in her room 350 feet without an assistive device and she did that twice. She turned wit hout loss of balance. Sit to stand done independently. Stand pivot transfer done independently. Wi th occupational therapy, independent bed, toileting, bathing, upper body dressing, standby assist for lower body dressing. With speech she was retested in preparation for possible discharge. She maint ained her BIMS score 15, elevated SLUMS score from 26-28, indicating normal functioning. Ms. Martinez is making great progress with physical, occupational, speech therapy and is ready for discha rge home. She will have family to help her and will continue therapy via Home Health. Assessment: Ms. Martinez is an 83-year-old patient in the rehabilitation unit with a left hemispheric nuñez bdural hematoma, status post evacuation, who is doing very well with her physical, occupational, and speech therapy. She is completing vancomycin for C diff. She has hypertension, muscle spasms, anemi a, and neuropathic pain. Plan: 1.Continue physical, occupational, speech therapy for 3.5 hours, 5 of 7 days. 2.She will continue with the Keppra for seizure prophylaxis. Continue with muscle relaxants. Sarah nue with hypertensive, nebulizer. Continue with gabapentin for neuropathic pain, Synthroid for hypot hyroidism, magnesium for muscle spasms, Mylicon for gas, Flomax for urinary retention, HemocytePlus f or anemia, trazodone for insomnia. Comorbidities That Are Continuing To Impact Her Rehabilitation: She is still having some mild loose stools and is completing the vancomycin treatment for C diff, but she will likely be able to go home and is not likely to be infectious as she has completed full course of treatment. She will follow up with primary care physician and GI physician. SHEREEN/LINA Voice ID: [id number] Report ID: [id number]
[2023-08-15 03:54] LABS: Absolute Basophils 0.1 K/uL (0-0.5); Absolute Eosinophils 0.2 K/uL (0-0.5); Absolute Lymphocytes (CBC) 1.1 K/uL (0.7-4.9); Absolute Monocytes 0.5 K/uL (0.1-1.3); Absolute Neutrophil 6.9 K/uL (1.8-8.0); Basophils % 0.9 % (0-1.3); Eosinophils % 2.4 % (0-4.4); Hematocrit 30.2 % (36.0-45.0); Hemoglobin 10.2 g/dL (12.0-15.0); Lymphocytes % 12.5 % (15.3-44.8); MCH 28.7 pg (27.0-35.0); MCHC 33.8 g/dL (32.0-36.0); MPV 7.6 fL (7.6-11.3); Monocytes % 5.6 % (3.3-12.3); Neutrophils % 78.6 % (41.7-73.7); Platelets 377 thou/uL (152-406); RBC Red Blood Cell Count 3.55 M/uL (3.86-4.86)
[2023-08-15 04:18] LABS: Anion Gap 9.7 mEq/L (5.0-15.0); Magnesium 1.8 mg/dL (1.6-2.4); Potassium 4.7 mEq/L (3.5-5.1)
[2023-08-15 08:04] VITALS: TEMP 97.9
[2023-08-15 08:56] VITALS: BP 122/59
--- NOTE | 2023-08-15 21:00 | PN ---
Date of Progress Note: 08/15/2023 Time Of Service: 1:25 p.m. Subjective: Ms. Martinez is resting in bed. She is ready for discharge. Daughter at bedside and they h ad questions, which are addressed as she is doing much better. Lee have been removed and she is happy with that. As noted previously, she was told to get the images of her 3 CT scans on disc, so w andrzej she is seen in [place] and that will be a week. Her followup will be able to have a CT scan ther e compared to the most recent studies done prior to her discharge from the rehab unit. Objective: Improved neck and head pain. Her numbness and weakness in right upper and lower extremit y is unchanged and no other findings are positive on systems review. Physical Examination: Vital Signs: Blood pressure 122/59, pulse 76, respiratory rate 16, temperature 97.7, oxygen saturati on 92%. General: Ms. Martinez is resting better and ready for discharge. HEENT: She has good hemostasis of the left scalp surgical site and no other abnormalities there. Extremities: Right side strength is around 4/5 upper and lower extremity. Mild decreased sensation in the right compared to left. No other findings on examination. Laboratory Studies: White blood cell count 8.8, hemoglobin 10.2, platelets 377. Sodium 137, potassi um 4.7, chloride 114, carbon dioxide 18, BUN 22, creatinine 1.21, glucose 101, calcium 9.8, magnesium 1.8. X-ray/imaging: No new x-rays or imaging. Medications: Medications have been reviewed and remained unchanged. Progress Made With Physical, Occupational, And Speech Therapy: With physical therapy, she ambulated without an assistive device, 350 feet independently, and doing multiple stand and pivot independently , performed multiple car simulation transfers independently, toilet transfers done independently. Wi occupational therapy, verbal cues for hand placement while toileting and normally showering. Inde pendent with toilet hygiene, bathing, upper and lower body dressing. Regarding her speech at dischar ge, independent with comprehension, expression, intelligibility 100%. She improved with SLUMS score from 26 to 28 and BIM score is 15 which is normal. Ms. Martinez has done well. She is ready for discharge today. Assessment And Plan: Ms. Martinez is an 83-year-old patient in rehabilitation with a left subdural hemat dominique, status post evacuation. She is doing great with physical, occupational, and speech therapy. Sh ronnie is ready for discharge home. She does have complete treatment of vancomycin for C. diff. She has hypertension, muscle spasms, anemia, neuropathic pain, all addressed well in addition to urinary trac t infection, insomnia, and hypothyroidism. Plan: 1.Continue with physical, occupational, and speech therapy until discharge. 2.For seizure prophylaxis, we will continue Keppra. 3.Continue all medications including muscle relaxants, gabapentin, Mylicon, Flomax, trazodone, Hemoc yte Plus, and Synthroid. Comorbidities That Are Continuing To Impact Rehabilitation: Stool issues which have slowed down cons iderably been a big problem for C. diff, but she completed treatment with vancomycin and no IV antibi otics needed. She will follow up with GI, primary care physician, and in my office and Neurology off ice within the month. SHEREEN/LINA Voice ID: [id number] Report ID: [id number]
== END 2023-08-15 13:45 | disposition home health service (06) | DRG 949 ==
LOC: 5TH 14:00
PROVIDERS: ADMIT Psychiatry & Neurology Neurology with Special Qualifications in Child Neurology; ATTEND Psychiatry & Neurology Neurology with Special Qualifications in Child Neurology
DX: S06.5XAD Traumatic subdural hemorrhage with loss of consciousness status unknown, subsequent encounter (principal); A04.72 Enterocolitis due to Clostridium difficile, not specified as recurrent; E46 Unspecified protein-calorie malnutrition; N39.0 Urinary tract infection, site not specified; I10 Essential (primary) hypertension; J45.909 Unspecified asthma, uncomplicated; H93.19 Tinnitus, unspecified ear; E83.42 Hypomagnesemia; E87.6 Hypokalemia; E87.8 Other disorders of electrolyte and fluid balance, not elsewhere classified; D64.9 Anemia, unspecified; R33.9 Retention of urine, unspecified; M62.838 Other muscle spasm; M10.9 Gout, unspecified; G47.00 Insomnia, unspecified; Z68.26 Body mass index [BMI] 26.0-26.9, adult
CPT/HCPCS: 36415; 70450; 80048; 80177; 81001; 82040; 83735; 84134; 85025; 87086; 87088; 92523; 94640; 97110; 97112; 97116; 97129; 97130; 97161; 97165; 97530; 97542; J3475; J3535; J7613; J7644

== ENCOUNTER 2025-03-02 13:16 | Emergency (ER) | payer OTHER ==
--- OUTSIDE RECORDS SUMMARY | 2025-03-02 13:20 | XMS REPORT | Continuity of Care Document ---
Author Name Unknown Address [address] [facility] [address] [place] [address] [facility] [place] Address [address] [facility]. [address] [place] [address] Care Team Providers Care Threshing Operator Name Role Phone Marjorie Mehta Primary Care Physician [phone] PHYSICIAN, NON ASSOCIATED Attending Clinician Un available Doctor Unassigned, [place] Attending Clinician U LUIS Hart Attending Clinician Unavail able LUIS ASHLEY Attending Clinician Unavail Luis Magaña MD Attending Clinician [phone] JADYN OSMAN Attending Clinician Unavailable DEQUAN GONZALEZ Attending Clinician Unavailab ARIEL Garibay Attending Clinician MALIA Keene Attending Clinician Unavailable Malia Campbell DO Attending Clinician [phone] Doctor Unassigned, [place] Attending Clinician U Nicola Branham MD Attending Clinician [phone] PHYSICIAN, NON ASSOCIATED Admitting Clinician Un available JADYN OSMAN Admitting Clinician Unavailable ARIEL LYNN Admitting Clinician MALIA Keene Admitting Clinician Unavailable Nicola Talbot MD Admitting Clinician [phone] Payers Payer Name Policy Type Policy Number Effective Date Expirati on Date Source [facility] [id number] 2023 00:00:00 Problems Condition Name Condition Details Condition Category Status Onset Date Resolution Date Last Treatment Date Treating Clinician Comments Source No known active problems No known active problems Disease [facility] Allergies, Adverse Reactions, Alerts Allergy Name Allergy Type Status Severity Reaction(s) Onset Date Inactive Date Treating Clinician Comments Source ACETAMIN OPHEN DRUG INGREDI Active Other-Cmnt 11-02 00:00: [address] [facility] IBUPROFE N DRUG INGREDI Active Other-Cmnt 11-02 00:00: [address] [facility] Ibuprofe n Propensi ty to adverse reaction s Active Other - See comments 11-02 00:00: [address] [facility] Acetamin ophen Propensi ty to adverse reaction s Active Other - See comments 11-02 00:00: [address] [facility] Adhesive Tape-Elva icones Propensi ty to adverse reaction s Active Rash 2019-0 1-15 00:00: [address] [facility] ADHESIVE TAPE-ELVA ICONES DRUG Active Med Rash 2019-0 1-15 00:00: [address] [facility] Penicill ins Propensi ty to adverse reaction s Active Swelling 2018-06 00:00: [address] [facility] TRAMADOL DRUG INGREDI Active High ITCHING 2018-0616 00:00: [address] [facility] PENICILL INS Drug Class Active Med Swelling 2018-0616 00:00: [address] [facility] Penicill ins Propensi ty to adverse reaction s Active Swelling 2018-06 00:00: [address] [facility] Tramadol Propensi ty to adverse reaction s Active Itching 2018-0616 00:00: [address] [facility] Social History Social Habit Start Date Stop Date Quantity Comments Source [facility] of Social function 2023-11-03 00:00:00 2023-11-03 00:00:00 [facility] Exposure to SARS-CoV-2 (event) 2022-04-03 00:00:00 2022-04-13 14:46:00 Not sure [facility] Tobacco use and exposure 2019-05-20 00:00:00 2019-05-20 00:00:00 Smokeless tobacco non-user [facility] Sex assigned at 1940 00:00:1940 00:00:00 [facility] Smoking Status Start Date Stop Date Source Never smoked tobacco [facility] Medications Ordered Medication Name Filled Medication Name Start Date Stop Date Current Medication? Ordering Clinician Indication Dosage Frequency Signature (SIG) Comments Components Source Levothyroxi ne 125 mcg capsule 11-02 10:50: 08 Yes Take by mouth. [facility] Levothyroxi ne 100 mcg capsule 11-02 10:50: 08 Yes Take by mouth. [facility] cyanocobala m-mecobalam in-folic 1,000-200 mcg TbDL 11-02 10:50: 08 Yes Take by mouth. [facility] fluticasone furoate 50 mcg/actuati on DsDv 11-02 10:50: 08 Yes Inhale. [facility] magnesium oxide/magne sium (MAGNESIUM, OXIDE/AA CHELATE, ORAL) 11-02 10:50: 08 Yes Take by mouth. [facility] meloxicam 7.5 mg tablet 11-02 10:50: 08 Yes 7.5mg Take 1 tablet by mouth in the morning. [facility] potassium chloride in water 20 mEq/100 mL 11-02 10:50: 08 Yes by IV Infusion route once now. [facility] Syringe-Nee dle, Safety,Disp Un 3 mL 22 gauge x 1" Syrg 11-02 10:50: 08 Yes Use as directed [facility] tamsulosin 0.4 mg 24 hr capsule 11-02 10:50: 08 Yes Take by mouth daily. [facility] iopamidol (ISOVUE 370-500 mL) injection 75 mL 2021-06 23:00: 00 04-13 23:00 :00 No [id number] 75mL 75 mL, Intravenou s, ONCE, 1 dose, On Mon04/13/22 at 1700, Routine [facility] ondansetron (ZOFRAN (PF)) injection 4 mg 2021-06 20:30: 00 04-13 20:52 :00 No 4mg 4 mg, Slow IV Push, ONCE, 1 dose, On Mon04/13/22 at 1430, Routine [facility] Simethicone 125 mg 2021-06 00:00: 00 05-14 05:59 :00 No [id number] 125mg Take 1 capsule by mouth after meals and at bedtime as needed for Gas for up to 30 days. [facility] fenofibrate 145 mg tablet 06-19 12:02: 18 Yes 145mg Take 145 mg by mouth daily. [facility] benazepril 20 mg tablet 06-19 12:02: 18 Yes 20mg Take 20 mg by mouth daily. [facility] Multivitami ns with Fluoride (MULTI-JAYNE MIN ORAL) 06-19 12:02: 18 Yes Take by mouth. [facility] amLODIPine 10 mg tablet 06-19 12:02: 18 Yes 10mg Take 10 mg by mouth daily. [facility] febuxostat (ULORIC) 80 mg tablet 06-19 12:02: 18 Yes 80mg Take 80 mg by mouth daily. [facility] Levothyroxi ne 125 mcg capsule 06-19 12:02: 18 Yes Take by mouth. [facility] Vital Signs Vital Name Observation Time Observation Value Comments S betito Systolic blood pressure 2023-11-03 15:52:00 127 mm[Hg] [facility] Diastolic blood pressure 2023-11-03 15:52:00 65 mm[Hg] [facility] Heart rate 2023-11-03 15:52:00 73 /min [facility] Body height 2023-11-03 15:52:00 157.5 cm [facility] Body weight 2023-11-03 15:52:00 65.091 kg [facility] BMI 2023-11-03 15:52:00 26.25 kg/m2 [facility] Oxygen saturation in Arterial blood by Pulse oximetry 2023-11-03 15:52:00 97 /min [facility] Systolic blood pressure 2022-04-13 23:00:00 133 mm[Hg] [facility] Diastolic blood pressure 2022-04-13 23:00:00 54 mm[Hg] [facility] Heart rate 2022-04-13 23:00:00 62 /min [facility] Respiratory rate 2022-04-13 23:00:00 13 /min [facility] Oxygen saturation in Arterial blood by Pulse oximetry 2022-04-13 23:00:00 95 /min [facility] Body temperature 2022-04-13 19:31:00 36.89 Lynnette [facility] Body weight 2022-04-13 19:31:00 67.132 kg [facility] BMI 2022-04-13 19:31:00 27.07 kg/m2 [facility] Procedures Procedure Date / Time Performed Performing Clinicia n Source REFERRAL- REQUEST/RESPONSE 2023-09-14 19:39:46 Doctor Unassigned, [place] [facility] CT ABDOMEN PELVIS W CONTRAST 2022-04-13 21:58:00 Malia Campbell [facility] LIPASE 2022-04-13 20:44:[address] [facility] COMP. METABOLIC PANEL (71044) 2022-04-13 20:44:00 Singer Malia [facility] CBC WITH DIFF 2022-04-13 20:44:00 Malia Campbell [facility] URINALYSIS 2022-04-13 20:44:[address] [facility] CONSENT/REFUSAL FOR DIAGNOSIS AND TREATMENT 2022-04-13 19:12:48 Doctor Unassigned, [place] [facility] Encounters Start Date/Time End Date/Time Encounter Type Admission Type Attending Clinicians Care Facility Care Department Encounter ID Source 2023-08-03 06:31:38 Inpatient PHYSICIAN, NON [facility] [id number] [address] [place] [address] 2023-09-14 00:00:00 2024-07-20 02:23:32 Orders Only Doctor Unassigned, [place] Doctor Unassigned, [place] [facility] 1..840.114 350.1.13.10 4.2.7.2.686 [id number] [facility] 2023-11-03 11:00:00 2023-11-03 11:39:36 Outpatient R LUIS ASHLEY HOWARD [facility] [id number] [facility] 2023-11-03 11:00:00 2023-11-03 11:39:36 Office Visit Luis Ashley [facility] 1..840.114 350.1.13.10 4.2.7.2.686 [id number] [facility] 2023-08-25 20:34:00 2023-08-28 14:56:00 Inpatient E JADYN OSMAN [facility] [id number] 01 [facility] 2023-08-24 11:30:00 2023-08-24 11:30:00 Outpatient [facility] [id number] [facility] 2023-07-27 17:14:00 2023-08-05 12:36:00 Inpatient E GONZALEZDEQUAN GUNDERSEN [facility] [id number] 53 [facility] 2023-07-28 07:00:00 2023-07-28 07:00:00 Outpatient ARIEL LYNN [facility] [id number] [facility] 2022-04-13 13:33:00 2022-04-13 17:15:00 Emergency X MALIA CAMPBELL [facility] ERT [id number] [facility] 2022-04-13 13:33:00 2022-04-13 17:15:00 Emergency Malia Campbell [facility] 1..840.114 350.1.13.10 4.2.7.2.686 [id number] [facility] 2022-04-13 00:00:00 2022-04-13 00:00:00 Orders Only Doctor Unassigned, [place] [facility] 1.2.840.114 350.1.13.10 4.2.7.2.686 [id number] [facility] 2019-06-19 09:48:00 2019-06-19 12:02:00 Hospital Encounter Nicola Talbot [facility] 1.2.840.114 350.1.13.10 4.2.7.2.686 [id number] 2019-06-18 00:00:00 2019-06-18 00:00:00 Orders Only Doctor Unassigned, [place] [facility] 1.2.840.114 350.1.13.10 4.2.7.2.686 [id number] Results Test Description Test Time Test Comments Results Resul t Comments Source REFERRAL- REQUEST/RESPONSE 2023-09-14 19:39:46 [facility] by an unspecified provider[facility] 21:46[facility]00* Test Item Value Reference Range Interpretation Comme nts LIPASE (test code = 8987811015) 148 U/L 0-220 Lab Interpretation (test cod e = 74591-6) Normal [facility] IGDG1534-23-16 21:15:53* Test Item Value Reference Range Interpretation [...] 34.0 g/dL 31.6-35.1 RDW-SD (test code = 84016-1) 40.3 fL 39.0-49.9 RDW-CV (test code = 788-0) 12.8 % 12.0-15.5 PLT (test code = 777-3) See_Comment [Automated messa ge] The system which generated this result transmitted reference range: 166 - 358 10*3/?L. The reference range was not used to interpret this result as normal/abnormal. MPV (test code = 74151-4) 11.0 fL 9.5-12.9 NRBC/100 WBC (test code = 2191222236) See_Comment [Automated [employer] ssage] The system which generated this result transmitted reference range: 0.0 - 10.0 /100 WBCs. The reference range was not used to interpret this result as normal/abnormal. NRBC x10^3 (test code = 7801450437) See_Comment [Automated [employer]] The system which generated this result transmitted reference range: 10*3/?L. The reference range was not used to interpret this result as normal/abnormal. GRAN MAT (NEUT) % (test code = 770-8) 68.2 % IMM GRAN % (test code = 8922254809) 0.30 % LYMPH % (test code = 736-9) 20.7 % MONO % (test code = 5905-5) 9.5 % EOS % (test code = 713-8) 0.5 % BASO % (test code = 706-2) 0.8 % GRAN MAT x10^3(ANC) (test code = 1582118030) 2.50 10*3/uL 1.88-7.09 IMM GRAN x10^3 (test code = 1996473835) 0.00-0.06 LYMPH x10^3 (test code = 731-0) 0.76 10*3/uL 1.32-3.29 L MONO x10^3 (test code = 742-7) 0.35 10*3/uL 0.33-0.92 EOS x10^3 (test code = 711-2) 0.03-0.39 L BASO x10^3 (test code = 704-7) 0.03 10*3/uL 0.01-0.07 Lab Interpretation (test code = 80537-6) Abnormal [facility]
[2025-03-02] MEDS ORDERED: ENOXAPARIN 80 MG/0.8 ML SQ ONE (14:22)
[2025-03-02] MEDS ORDERED: HYDROCODONE/APAP 5/325 MG TAB ONE ×2 (14:28)
[2025-03-02] MEDS ORDERED: MORPHINE 2 MG/ML SYR ONE (14:36)
[2025-03-02] MEDS ORDERED: ONDANSETRON 4 MG/2 ML VIAL ONE (14:41)
--- NOTE | 2025-03-02 14:44 | RAD REPORT ---
EXAMINATION: US LEFT LOWER EXTREMITY VENOUS DOPPLER CLINICAL INDICATION: [facility] MA[facility] LLE SWELLING Bed Name: 17 Y TECHNIQUE: Complete bilateral duplex sonography of the LEFT lower extremity veins was performed. The examination included compression for vein patency, color Doppler imaging and flow augmentation in response to distal compression of the distal external iliac, common femoral, femoral, popliteal, tibi al, and great and small saphenous veins. COMPARISON: No prior exam. FINDINGS: Duplex sonography testing of the veins of the LEFT lower extremity was performed. Color flow imaging shows hypoechoic thrombus with noncompressible common femoral and superficial femoral veins. There may be extension into the deep femoral vein at the confluence as well. Popliteal and posterior tibial veins veins appear compressible with [id number] color filling. IMPRESSION: Deep venous thrombosis involving the left common femoral through distal superficial femoral vein. Pop liteal posterior tibial veins are patent. THIS REPORT CONTAINS FINDINGS THAT MAY BE CRITICAL TO PATIENT CARE. The findings were verbally commun icated via telephone to Jeanette Jackson on 03/02/2025 2:42 PM.
[2025-03-02 15:02] LABS: Absolute Lymphocytes (CBC) 1.2 K/uL (0.7-4.9); Hematocrit 37.5 % (36.0-45.0); Hemoglobin 12.8 g/dL (12.0-15.0); MCH 29.7 pg (27.0-35.0); MCHC 34.1 g/dL (32.0-36.0); MCV 87.3 fL (80-100); MPV 9.4 fL (7.6-11.3); Nucleated RBC Absolute Count 0.0 (0-0); Nucleated Red Blood Cells % 0.2 % (0-0); RBC Red Blood Cell Count 4.30 M/uL (3.86-4.86); White Blood Count 7.60 thou/uL (4.3-10.9)
[2025-03-02 15:13] LABS: Anion Gap 10.4 mEq/L (5.0-15.0); BUN Blood Urea Nitrogen 27.0 mg/dL (7-18); Glucose Level 103.0 mg/dL (74-106)
[2025-03-02 15:14] LABS: NT PRO-BNP 1319.0 pg/mL (<450); Potassium 4.4 mEq/L (3.5-5.1); Troponin High Sensitivity 10.8 pg/mL (<58.9)
--- NOTE | 2025-03-02 15:20 | EDPHYS ---
Physician Documentation [facility] Name: Felicia Martinez Age: 84 yrs Sex: Female : 1940 Arrival Date: 03/02/2025 Time: 13:16 Bed 16 Private MD: ED Physician Jeanette Jackson HPI: 03/02 14:07 This 84 yrs old Female presents to ER via Ambulatory with complaints of Left Leg sp3 Swelling. 14:07 84-year-old female with history of asthma, hypertension, hypothyroidism presents with sp3 left lower extremity swelling and pain over the last week. Patient had recent back injury from lifting a plant and was bedridden on pain medications. Back pain is now resolved but now the left lower extremity is swollen. Patient denies any chest pain, shortness of breath, abdominal pain, swelling anywhere else, prior history of DVT or PE, travel history, or any other signs or symptoms on ROS at this time.. Historical: - Allergies: 13:25 Ibuprofen; jb4 13:25 PENICILLINS; jb4 13:25 tramadol; jb4 13:25 Tylenol; jb4 13:25 Celebrex; jb4 - PMHx: 13:25 Asthma; Hypertensive disorder; Hypothyroidism; jb4 - PSHx: 13:25 hernia; eye; neck; back; brain; chest; jb4 - Immunization history:: Adult Immunizations not up to date. - Infectious Disease History:: Denies. - Social history:: Smoking status: Patient denies any tobacco usage or history of. ROS: 14:14 Constitutional: Negative for fever, chills, and weight loss, Eyes: Negative for injury, sp3 pain, redness, and discharge, ENT: Negative for injury, pain, and discharge, Neck: Negative for injury, pain, and swelling, Cardiovascular: Negative for chest pain, palpitations, and edema, Respiratory: Negative for shortness of breath, cough, wheezing, and pleuritic chest pain, Abdomen/GI: Negative for abdominal pain, nausea, vomiting, diarrhea, and constipation, Back: Negative for injury and pain, Skin: Negative for injury, rash, and discoloration, Neuro: Negative for headache, weakness, numbness, tingling, and seizure, Psych: Negative for depression, anxiety, suicide ideation, homicidal ideation, and hallucinations, Allergy/Immunology: Negative for hives, rash, and allergies, Endocrine: Negative for neck swelling, polydipsia, polyuria, polyphagia, and marked weight changes, 14:14 All other systems are negative, Exam: 14:15 Constitutional: This is a well developed, well nourished patient who is awake, alert, sp3 and in no acute distress. Head/Face: Normocephalic, atraumatic. Neck: Trachea midline, no thyromegaly or masses palpated, and no cervical lymphadenopathy. Supple, full range of motion without nuchal rigidity, or vertebral point tenderness. No Meningismus. Chest/axilla: Normal chest wall appearance and motion. Nontender with no deformity. No lesions are appreciated. Cardiovascular: Regular rate and rhythm with a normal S1 and S2. No gallops, murmurs, or rubs. Normal PMI, no JVD. No pulse deficits. Respiratory: Lungs have equal breath sounds bilaterally, clear to auscultation and percussion. No rales, rhonchi or wheezes noted. No increased work of breathing, no retractions or nasal flaring. Abdomen/GI: Soft, non-tender, with normal bowel sounds. No distension or tympany. No guarding or rebound. No evidence of tenderness throughout. Back: No spinal tenderness. No costovertebral tenderness. Full range of motion. Skin: Warm, dry with normal turgor. Normal color with no rashes, no lesions, and no evidence of cellulitis. Neuro: Awake and alert, GCS 15, oriented to person, place, time, and situation. Cranial nerves II-XII grossly intact. Motor strength 5/5 in all extremities. Sensory grossly intact. Cerebellar exam normal. Normal gait. Psych: Awake, alert, with orientation to person, place and time. Behavior, mood, and affect are within normal limits. 14:15 Musculoskeletal/extremity: Left lower extremity swelling noted starting from the inguinal canal distally. Distal pulses present.. Vital Signs: 13:23 BP 140 / 91; Pulse 102; Resp 18; Temp 98.3(TE); Pulse Ox 97% on R/A; Weight 68.04 kg jb4 (R); Height 5 ft. 2 in. (R); Pain 9/10; 15:00 BP 132 / 87; Pulse 79; Resp 16; Pulse Ox 96% ; me1 15:22 BP 143 / 70; Pulse 80; Resp 16; Temp 98.4; Pulse Ox 96% ; me1 13:23 Body Mass Index 27.44 (68.04 kg, 157.48 cm) jb4 13:23 Pain Scale: Adult jb4 MDM: 13:27 Medical Screening Exam initiated sp3 14:15 Data reviewed: vital signs, nurses notes, lab test result(s). ED course: 84-year-old sp3 female with left lower extremity swelling. No chest pain or shortness of breath noted. Differential diagnosis includes DVT, lymphedema, electrolyte abnormality, other vascular pathology. Initially ultrasound left lower extremity was ordered which demonstrates deep vein thrombosis from the groin distal. We would not add on general lab work. I am not highly suspicious of PE. If labs are normal, we will give 1 dose of Lovenox and start patient on Eliquis.. 03/02 14:18 Order name: Basic Metabolic Panel; Complete Time: 15:16 3 03/02 14:18 Order name: CBC with Diff; Complete Time: 15:16 3 03/02 14:18 Order name: NT PRO-BNP; Complete Time: 15:16 3 03/02 14:18 Order name: Troponin HS; Complete Time: 15:16 3 03/02 13:41 Order name: US Extremity Venous Unilateral Ltd; Complete Time: 14:48 3 03/02 14:18 Order name: EKG - Nurse/Tech; Complete Time: 15:00 3 03/02 14:18 Order name: IV Saline Lock; Complete Time: 14:48 3 03/02 14:18 Order name: Labs collected and sent; Complete Time: 14:48 3 Administered Medications: 14:41 Not Given (Patient Refused): hydrocodone-acetaminophen5 mg-325 mg 2 tabs PO once me1 14:52 Drug: Enoxaparin Sub-Q 70 mg Sub-Q once Route: Sub-Q; Site: abdomen; me1 15:21 Follow up: Response: No adverse reaction me1 14:52 Drug: morphine IVP or IV 2 mg IVP once over 4 mins Route: IVP; Infused Over: 4 mins; me1 Site: left forearm; 15:21 Follow up: Response: No adverse reaction; Pain is decreased me1 14:52 Drug: Ondansetron IVP 4 mg IVP once; over 2 minutes Route: IVP; Site: left forearm; me1 15:21 Follow up: Response: No adverse reaction; Nausea is decreased me1 Disposition Summary: 03/02/25 15:19 Discharge Ordered Notes: Location: Home sp3 Condition: Stable sp3 Diagnosis - Deep vein thrombosis, left lower extremity sp3 Followup: sp3 - With: Private Physician - When: Upon discharge from the Emergency Department - Reason: Continuance of care Discharge Instructions: - Discharge Summary Sheet sp3 - Deep Vein Thrombosis sp3 Forms: - Medication Reconciliation Form sp3 - Antibiotic Education sp3 - Prescription Opioid Use sp3 - Patient Portal Instructions sp3 - Leadership Thank You Letter sp3 Prescriptions: - Eliquis DVT-PE Treat 30D Start 5 mg (74 tabs) Oral Tablet, Dose Pack - take 1 Each ORAL route per package directions; 1 Pack; Refills: 0, Product sp3 Selection Permitted - Tramadol 50 mg Oral Tablet - take 1 tablet ORAL route every 8 hours as needed; 12 tablet; Refills: 0, sp3 Product Selection Permitted Signatures: Dispatcher [employer] Jameel Zapata, RN RN jb4 Jeanette Jackson MD MD sp3 Kasandra Cooney, RN RN me1 Corrections: (The following items were deleted from the chart) 13:41 13:41 Extremity Venous Uni Ltd+US.RAD.BRZ ordered. EDMS EDMS 14:18 14:18 BASIC METABOLIC PANEL+C.LAB.BRZ ordered. EDMS EDMS 14:18 14:18 CBC+H.LAB.BRZ ordered. EDMS EDMS 14:18 14:18 PROBNP+C.LAB.BRZ ordered. EDMS EDMS 14:18 14:18 Troponin High Sensitivity+C.LAB.BRZ ordered. EDMS EDMS
--- NOTE | 2025-03-02 15:20 | ER ---
Nurse's Notes [facility] Name: Felicia Martinez Age: 84 yrs Sex: Female : 1940 Arrival Date: 03/02/2025 Time: 13:16 Bed 16 Private MD: Diagnosis: Deep vein thrombosis, left lower extremity Presentation: 03/02 13:23 Chief complaint: Patient states: I hurt my back a few days ago moving plants and was jb4 laying around a lot. I noticed today I was having swelling in my left groin to my ankle and it is painful. Coronavirus screen: At this time, the client does not indicate any symptoms associated with coronavirus-19. Ebola Screen: No symptoms or risks identified at this time. Initial Sepsis Screen: Does the patient meet any 2 criteria? HR > 90 bpm. Yes Does the patient have a suspected source of infection? No. Patient's initial sepsis screen is negative. Risk Assessment: Do you want to hurt yourself or someone else? Patient reports no desire to harm self or others. Onset of symptoms was March 02, 2025. Transition of care: patient was not received from another setting of care. 13:23 Method Of Arrival: Ambulatory jb4 13:23 Acuity: BRYANNA 3 jb4 Historical: - Allergies: 13:25 Ibuprofen; jb4 13:25 PENICILLINS; jb4 13:25 tramadol; jb4 13:25 Tylenol; jb4 13:25 Celebrex; jb4 - PMHx: 13:25 Asthma; Hypertensive disorder; Hypothyroidism; jb4 - PSHx: 13:25 hernia; eye; neck; back; brain; chest; jb4 - Immunization history:: Adult Immunizations not up to date. - Infectious Disease History:: Denies. - Social history:: Smoking status: Patient denies any tobacco usage or history of. Screenin:04 [facility] ED Fall Risk Assessment (Adult) History of falling in the last 3 months, me1 including since admission No falls in past 3 months (0 pts) Confusion or Disorientation No (0 pts) Intoxicated or Sedated No (0 pts) Impaired Gait No (0 pts) Mobility Assist Device Used No (0 pt) Altered Elimination No (0 pt) Score/Fall Risk Level 0 - 2 = Low Risk Maintained a safe environment, Provided non-skid footwear, Hourly rounding (assess needs \T\ fall precautionary measures) done. Abuse screen: Denies threats or abuse. Nutritional screening: No deficits noted. Tuberculosis screening: No symptoms or risk factors identified. Assessment: 14:04 General: Appears uncomfortable, well groomed, well developed, well nourished, Behavior me1 is calm, cooperative, appropriate for age, Reports I hurt my back a few days ago moving plants and was laying around a lot. I noticed today I was having swelling in my left groin to my ankle and it is painful. Pain: Complains of pain in left femoral area and left leg Pain does not radiate. Pain currently is 9 out of 10 on a pain scale. Quality of pain is described as aching, Pain began gradually, Is continuous. Neuro: Level of Consciousness is awake, alert, obeys commands, Oriented to person, place, time, situation, Appropriate for age. Cardiovascular: Patient's skin is warm and dry. Respiratory: Airway is patent Respiratory effort is even, unlabored, Respiratory pattern is regular, symmetrical. GI: Bowel sounds present X 4 quads. Abd is soft X 4 quads. : No signs and/or symptoms were reported regarding the genitourinary system. EENT: No signs and/or symptoms were reported regarding the EENT system. Derm: Skin is intact, is healthy with good turgor, Skin is normal. Musculoskeletal: Swelling present in left femoral area and left leg Reports pain in left femoral area and left leg. Injury Description: I hurt my back a few days ago moving plants and was laying around a lot. I noticed today I was having swelling in my left groin to my ankle and it is painful. Vital Signs: 13:23 BP 140 / 91; Pulse 102; Resp 18; Temp 98.3(TE); Pulse Ox 97% on R/A; Weight 68.04 kg jb4 (R); Height 5 ft. 2 in. (R); Pain 9/10; 15:00 BP 132 / 87; Pulse 79; Resp 16; Pulse Ox 96% ; me1 15:22 BP 143 / 70; Pulse 80; Resp 16; Temp 98.4; Pulse Ox 96% ; me1 13:23 Body Mass Index 27.44 (68.04 kg, 157.48 cm) [facility] 13:23 Pain Scale: Adult jb4 ED Course: 13:20 Patient arrived in ED. al6 13:25 Triage completed. jb4 13:26 Jeanette Jackson MD is Attending Physician. sp3 13:27 Arm band placed on right wrist. jb4 13:32 Hilary De La Vega, RN is Primary Nurse. ll1 14:04 Patient has correct armband on for positive identification. Bed in low position. Call me1 light in reach. Side rails up X2. Provided Education on: POC. Verbalized understanding.. Client placed on continuous cardiac and pulse oximetry monitoring. NIBP monitoring applied. Pulse ox on. NIBP on. 14:04 No provider procedures requiring assistance completed. me1 14:15 US Extremity Venous Unilateral Ltd In Process Unspecified. EDMS 14:48 Basic Metabolic Panel Sent. em1 14:48 CBC with Diff Sent. em1 14:48 NT PRO-BNP Sent. em1 14:48 Troponin HS Sent. em1 14:48 Initial lab(s) drawn, by me, sent to lab. Inserted saline lock: 22 gauge in left em1 forearm, using aseptic technique. Blood collected. Flushed with 10 mL NS. 15:00 EKG done, by ED staff, reviewed by Jeanette Jackson MD. me1 15:37 IV discontinued, intact, bleeding controlled, No redness/swelling at site. Pressure me1 dressing applied. Administered Medications: 14:41 Not Given (Patient Refused): hydrocodone-acetaminophen5 mg-325 mg 2 tabs PO once me1 14:52 Drug: Enoxaparin Sub-Q 70 mg Sub-Q once Route: Sub-Q; Site: abdomen; me1 15:21 Follow up: Response: No adverse reaction me1 14:52 Drug: morphine IVP or IV 2 mg IVP once over 4 mins Route: IVP; Infused Over: 4 mins; me1 Site: left forearm; 15:21 Follow up: Response: No adverse reaction; Pain is decreased me1 14:52 Drug: Ondansetron IVP 4 mg IVP once; over 2 minutes Route: IVP; Site: left forearm; me1 15:21 Follow up: Response: No adverse reaction; Nausea is decreased me1 Medication: 14:04 VIS not applicable for this client. me1 Outcome: 15:19 Discharge ordered by . sp3 15:37 Discharged to home via wheelchair, with family, me1 15:37 Condition: stable 15:37 Discharge instructions given to patient, family, Instructed on discharge instructions, follow up and referral plans. medication usage, Demonstrated understanding of instructions, follow-up care, medications, Prescriptions given X 2, 15:38 Patient left the ED. me1 Signatures: Dispatcher [employer] Mahad Thrasher em1 Jameel Bhatt RN RN jb4 Hilary De La Vega RN RN ll1 Jeanette Jackson MD MD sp3 Kasandra Cooney RN RN me1 Jesi Oviedo al6 Corrections: (The following items were deleted from the chart) 14:04 13:23 Chief complaint: Patient states: I hurt my back a few days ago moving plants and me1 was laying around a lot. I noticed today I was having swelling in my left groin to my ankle and it is painful. jb4
[2025-03-02 15:45] VITALS: O2SAT 96
[2025-03-02 15:47] VITALS: BP 143/70; TEMP 98.4
== END 2025-03-02 15:38 | disposition home or self-care (01) ==
LOC: ER 13:16
DX: I82.402 Acute embolism and thrombosis of unspecified deep veins of left lower extremity (principal)
CPT/HCPCS: 93005; 85025; 80048; 36415; 84484; 83880; 93971; 96375; 96372; 96374; 99285; J1650; J2270; J2405

== ENCOUNTER 2025-03-05 20:18 | Emergency (ER) | payer OTHER ==
--- OUTSIDE RECORDS SUMMARY | 2025-03-05 20:23 | XMS REPORT | Continuity of Care Document ---
Author Name Unknown Address [address] [facility] [address] [place] [address] [facility] [place] Address [address] [facility] [place] [address] Care Team Providers Care [employer]ard[employer] Waste Technician Name Role Phone Marjorie Mehta Adrien Primary Care Physician [phone] Doctor Unassigned, [place] Attending Clinician U LUIS Hart Attending Clinician Unavail LUIS Magaña Attending Clinician Unavail Luis Magaña MD Attending Clinician ARIEL LYNN Attending Clinician UnaMALIA Griggs Attending Clinician Unavailable Malia Campbell DO Attending Clinician [phone] Doctor Unassigned, [place] Attending Clinician U Nicola Branham MD Attending Clinician [phone] MALIA CAMPBELL Admitting Clinician Unavailable Nicola Talbot MD Admitting Clinician [phone] Payers Payer Name Policy Type Policy Number Effective Date Expirati on Date Source [facility] MEDICARE ADVANTAGE [id number] 2023 00:00:00 Problems Condition Name Condition Details Condition Category Status Onset Date Resolution Date Last Treatment Date Treating Clinician Comments Source No known active problems No known active problems Disease [facility] Allergies, Adverse Reactions, Alerts Allergy Name Allergy Type Status Severity Reaction(s) Onset Date Inactive Date Treating Clinician Comments Source ACETAMIN OPHEN DRUG INGREDI Active Other-Cmnt 11-02 00:00: 00 [facility] IBUPROFE N DRUG INGREDI Active Other-Cmnt 11-02 00:00: 00 [facility] Ibuprofe n Propensi ty to adverse reaction s Active Other - See comments 11-02 00:00: 00 headache [facility] Acetamin ophen Propensi ty to adverse reaction s Active Other - See comments 11-02 00:00: 00 [facility] Adhesive Tape-Elva icones Propensi ty to adverse reaction s Active Rash 0 -15 00:00: 00 [facility] ADHESIVE TAPE-ELVA ICONES DRUG Active Med Rash 0 -15 00:00: 00 [facility] Penicill ins Propensi ty to adverse reaction s Active Swelling 2018-0616 00:00: 00 Itching [facility] TRAMADOL DRUG INGREDI Active High ITCHING 2018-0616 00:00: 00 [facility] PENICILL INS Drug Class Active Med Swelling 2018-0616 00:00: 00 [facility] Penicill ins Propensi ty to adverse reaction s Active Swelling 2018-06 00:00: 00 Itching [facility] Tramadol Propensi ty to adverse reaction s Active Itching 2018-0616 00:00: 00 [facility] Social History Social Habit Start Date Stop Date Quantity Comments Source [facility] Social function 2023-11-03 00:00:00 2023-11-03 00:00:00 [facility] Exposure to SARS-CoV-2 (event) 2022-04-03 00:00:00 2022-04-13 14:46:00 Not sure [facility] Tobacco use and exposure 2019-05-20 00:00:00 2019-05-20 00:00:00 Smokeless tobacco non-user [facility] Sex assigned at 1940 00:00:00 1940 00:00:00 [facility] Smoking Status Start Date Stop Date Source Never smoked tobacco [facility] Medications Ordered Medication Name Filled Medication Name Start Date Stop Date Current Medication? Ordering Clinician Indication Dosage Frequency Signature (SIG) Comments Components Source Levothyroxi ne 125 mcg capsule 11-02 10:50: 08 Yes Take by mouth. [facility] Levothyroxi ne 100 mcg capsule 11-02 10:50: 08 Yes Take by mouth. [facility] cyanocobala m-mecobalam in-folic 1,000-200 mcg TbDL 11-02 10:50: 08 Yes Take by mouth. [facility] fluticasone furoate 50 mcg/actuati on DsDv 11-02 10:50: 08 Yes Inhale. [facility] magnesium oxide/magne sium (MAGNESIUM, OXIDE/AA CHELATE, ORAL) 11-02 10:50: 08 Yes Take by mouth. [facility] meloxicam 7.5 mg tablet 11-02 10:50: 08 Yes 7.5mg Take 1 tablet by mouth in the morning. [facility] potassium chloride in water 20 mEq/100 mL 11-02 10:50: 08 Yes by IV Infusion route once now. [facility] Syringe-Nee dle, Safety,Disp Un 3 mL 22 gauge x 1" Syrg 11-02 10:50: 08 Yes Use as directed [facility] tamsulosin 0.4 mg 24 hr capsule 11-02 10:50: 08 Yes Take by mouth daily. [facility] iopamidol (ISOVUE 370-500 mL) injection 75 mL 2021-06 23:00: 00 04-13 23:00 :00 No [id number] 75mL 75 mL, Intravenou s, ONCE, 1 dose, On Mon04/13/22 at 1700, Routine [facility] ondansetron (ZOFRAN (PF)) injection 4 mg 2021-06 20:30: 00 04-13 20:52 :00 No 4mg 4 mg, Slow IV Push, ONCE, 1 dose, On Mon04/13/22 at 1430, Routine [facility] Simethicone 125 mg 2021-06 00:00: 00 05-14 05:59 :00 No [id number] 125mg Take 1 capsule by mouth after meals and at bedtime as needed for Gas for up to 30 days. [facility] fenofibrate 145 mg tablet 06-19 12:02: 18 Yes 145mg Take 145 mg by mouth daily. [facility] benazepril 20 mg tablet 06-19 12:02: 18 Yes 20mg Take 20 mg by mouth daily. [facility] Multivitami ns with Fluoride (MULTI-JAYNE MIN ORAL) 06-19 12:02: 18 Yes Take by mouth. [facility] amLODIPine 10 mg tablet 06-19 12:02: 18 Yes 10mg Take 10 mg by mouth daily. [facility] febuxostat (ULORIC) 80 mg tablet 06-19 12:02: 18 Yes 80mg Take 80 mg by mouth daily. [facility] Levothyroxi ne 125 mcg capsule 06-19 12:02: 18 Yes Take by mouth. [facility] Vital Signs Vital Name Observation Time Observation Value Comments S ource BMI 2023-11-03 15:52:00 26.25 kg/m2 [facility] Oxygen saturation in Arterial blood by Pulse oximetry 2023-11-03 15:52:00 97 /min [facility] Systolic blood pressure 2023-11-03 15:52:00 127 mm[Hg] [facility] Diastolic blood pressure 2023-11-03 15:52:00 65 mm[Hg] [facility] Heart rate 2023-11-03 15:52:00 73 /min [facility] Body height 2023-11-03 15:52:00 157.5 cm [facility] Body weight 2023-11-03 15:52:00 65.091 kg [facility] Systolic blood pressure 2022-04-13 23:00:00 133 mm[Hg] [facility] Diastolic blood pressure 2022-04-13 23:00:00 54 mm[Hg] [facility] Heart rate 2022-04-13 23:00:00 62 /min [facility] Respiratory rate 2022-04-13 23:00:00 13 /min [facility] Oxygen saturation in Arterial blood by Pulse oximetry 2022-04-13 23:00:00 95 /min [facility] Body temperature 2022-04-13 19:31:00 36.89 Lynnette [facility] Body weight 2022-04-13 19:31:00 67.132 kg [facility] BMI 2022-04-13 19:31:00 27.07 kg/m2 [facility] Procedures Procedure Date / Time Performed Performing Clinicia n Source REFERRAL- REQUEST/RESPONSE 2023-09-14 19:39:46 Doctor Unassigned, [place] [facility] CT ABDOMEN PELVIS W CONTRAST 2022-04-13 21:58:00 Malia Campbell [facility] LIPASE 2022-04-13 20:44:00 [facility] COMP. METABOLIC PANEL ([id number]) 2022-04-13 20:44:00 Singer [facility] CBC WITH DIFF 2022-04-13 20:44:00 Singer [facility] URINALYSIS 2022-04-13 20:44:00 [facility] CONSENT/REFUSAL FOR DIAGNOSIS AND TREATMENT 2022-04-13 19:12:48 Doctor Unassigned, [place] [facility] Encounters Start Date/Time End Date/Time Encounter Type Admission Type Attending Clinicians Care Facility Care Department Encounter ID Source 2023-09-14 00:00:00 2024-07-20 02:23:32 Orders Only Doctor Unassigned, [place] Doctor Unassigned, [place] [facility] [id number] [id number] [facility] 2023-11-03 11:00:00 2023-11-03 11:39:36 Outpatient Jeri LUIS ASHLEY CODYLUIS Montilla [facility] [id number] [facility] 2023-11-03 11:00:00 2023-11-03 11:39:36 Office [facility] [id number] [id number] [id number] [id number] [facility] 2023-08-24 11:30:00 2023-08-24 11:30:00 Outpatient [facility] [id number] [facility] 2023-07-28 07:00:00 2023-07-28 07:00:00 Outpatient ARIEL LYNN [facility] [id number] [facility] 2022-04-13 13:33:00 2022-04-13 17:15:00 Emergency X MALIA CAMPBELL [facility] ERT [id number] [facility] 2022-04-13 13:33:00 2022-04-13 17:15:00 Emergency Singer Malia [facility] [id number] [id number] [id number] [id number] [facility] 2022-04-13 00:00:00 2022-04-13 00:00:00 Orders Only Doctor Unassigned, [place] [facility] [id number] [id number] 4.2.7.2.686 [id number] [facility] 2019-06-19 09:48:00 2019-06-19 12:02:00 Hospital Encounter Nicola Talbot [facility] [id number] [id number] [id number] [id number] 2019-06-18 00:00:00 2019-06-18 00:00:00 Orders Only Doctor Unassigned, [place] [facility] [id number] [id number] [id number] [id number] Results Test Description Test Time Test Comments Results Resul t Comments Source REFERRAL- REQUEST/RESPONSE 2023-09-14 19:39:46 [facility] Test Item Value Reference Range Interpretation Comme nts LIPASE (test code = 8519333688) 148 U/L 0-220 Lab Interpretation (test cod e = 18592-2) Normal [facility] [id number] 21:15:53* Test Item Value Reference Range Interpretation [...] 34.0 g/dL 31.6-35.1 RDW-SD (test code = 58690-7) 40.3 fL 39.0-49.9 RDW-CV (test code = 788-0) 12.8 % 12.0-15.5 PLT (test code = 777-3) See_Comment [Automated messa ge] The system which generated this result transmitted reference range: 166 - 358 10*3/?L. The reference range was not used to interpret this result as normal/abnormal. MPV (test code = 10503-6) 11.0 fL 9.5-12.9 NRBC/100 WBC (test code = 2972907753) See_Comment [Automated me ssage] The system which generated this result transmitted reference range: 0.0 - 10.0 /100 WBCs. The reference range was not used to interpret this result as normal/abnormal. NRBC x10^3 (test code = 5003929502) See_Comment [Automated messa ge] The system which generated this result transmitted reference range: 10*3/?L. The reference range was not used to interpret this result as normal/abnormal. GRAN MAT (NEUT) % (test code = 770-8) 68.2 % IMM GRAN % (test code = 0534532547) 0.30 % LYMPH % (test code = 736-9) 20.7 % MONO % (test code = 5905-5) 9.5 % EOS % (test code = 713-8) 0.5 % BASO % (test code = 706-2) 0.8 % GRAN MAT x10^3(ANC) (test code = 4171640223) 2.50 10*3/uL 1.88-7.09 IMM GRAN x10^3 (test code = 2423649361) 0.00-0.06 LYMPH x10^3 (test code = 731-0) 0.76 10*3/uL 1.32-3.29 L MONO x10^3 (test code = 742-7) 0.35 10*3/uL 0.33-0.92 EOS x10^3 (test code = 711-2) 0.03-0.39 L BASO x10^3 (test code = 704-7) 0.03 10*3/uL 0.01-0.07 Lab Interpretation (test code = 55550-4) Abnormal [facility]
--- NOTE | 2025-03-05 22:29 | RAD REPORT ---
EXAMINATION: US LEFT LOWER EXTREMITY VENOUS DOPPLER CLINICAL INDICATION: [facility] MAIN left leg Pain;Swelling Bed Name: IW4 Y TECHNIQUE: Complete bilateral duplex sonography of the LEFT lower extremity veins was performed. The examination included compression for vein patency, color Doppler imaging and flow augmentation in response to distal compression of the distal external iliac, common femoral, femoral, popliteal, tibi al, and great and small saphenous veins. COMPARISON: No prior exam. FINDINGS: Duplex sonography testing of the veins of the LEFT lower extremity was performed. Color flow imaging shows extensive hypoechoic thrombus distending the common femoral through popliteal veins, extending into the saphenofemoral junction. The veins are noncompressible. Posterior tibial veins are patent and compressible. IMPRESSION: Deep venous thrombosis involving common femoral through popliteal veins.
--- NOTE | 2025-03-05 22:46 | EDPHYS ---
Physician Documentation [facility] Name: Kathe Martinez Age: 84 yrs Sex: Female : 1940 Arrival Date: 03/05/2025 Time: 20:18 Bed 25 Private MD: ED Physician Albino Carroll HPI: 03/05 20:50 This 84 yrs old Female presents to ER via Ambulatory with complaints of Leg Swelling - kb PREV DIAGNOSED WITH BLOOD CLOTS, Leg Pain. 20:50 Patient is an 84-year-old female who presents for swelling to left lower extremity. kb States she was diagnosed with a DVT on Monday, 4 days ago, and the swelling has progressed. States she is taking Eliquis twice daily but came in to see if there is anything more she can do for the swelling.. Historical: - Allergies: 20:46 Celebrex; dd2 20:46 Ibuprofen; dd2 20:46 PENICILLINS; dd2 20:46 tramadol; dd2 20:46 Tylenol; dd2 - PMHx: 20:46 Asthma; Hypertensive disorder; Hypothyroidism; dd2 - PSHx: 20:46 back; chest; eye; Brain; hernia; neck; dd2 - Immunization history:: Adult Immunizations up to date. - Infectious Disease History:: Denies. - Social history:: Smoking status: Patient denies any tobacco usage or history of. ROS: 20:50 Constitutional: As per HPI kb Exam: 20:50 Constitutional: This is a well developed, well nourished patient who is awake, alert, kb and in no acute distress. Head/Face: Normocephalic, atraumatic. ENT: Moist Mucous membranes Respiratory: Respirations even and unlabored. No increased work of breathing. Talking in full sentences Skin: Warm, dry with normal turgor. Normal color. Neuro: Awake and alert, GCS 15, oriented to person, place, time, and situation. 20:50 Musculoskeletal/extremity: Extremities: grossly normal except: noted in the left leg: pain, swelling, ROM: intact in all extremities, Circulation is intact in all extremities. Sensation intact. Weight bearing: able to fully bear weight, Vital Signs: 20:45 BP 139 / 77; Pulse 94; Resp 17; Temp 98.3; Pulse Ox 97% ; dd2 20:49 Weight 68.04 kg; Pain 4/10; dd2 21:18 BP 147 / 70; Pulse 78; Resp 20; Pulse Ox 96% ; jj7 22:30 BP 141 / 71; Pulse 73; Resp 20; Temp 98.1; Pulse Ox 96% ; jj7 20:49 Pain Scale: Adult dd2 MDM: 20:42 Medical Screening Exam initiated kb 20:51 Data reviewed: vital signs, nurses notes. Historians other than the Patient: Family kb Member: Family. 22:44 Differential diagnosis: dvt, arterial occlusion, strain. Counseling: I had a detailed kb discussion with the patient and/or guardian regarding the historical points, exam findings, and any diagnostic results supporting the discharge/admit diagnosis, radiology results, the need for outpatient follow up, a family practitioner, to return to the emergency department if symptoms worsen or persist or if there are any questions or concerns that arise at home. 22:45 ED course: Patient will follow-up with PCP. No shortness of breath or respiratory kb distress. Ambulatory with steady gait.. 03/05 20:49 Order name: US Extremity Venous Unilateral Ltd; Complete Time: 22:40 kb Administered Medications: No medications were administered Disposition: 03/06 04:36 Co-signature as Attending Physician, Albino Carroll DO I reviewed the patient's care tt7 provided by the Advanced Practice Provider and agree with the diagnosis and treatment plan. Disposition Summary: 03/05/25 22:45 Discharge Ordered Notes: Location: Home kb Condition: Stable kb Diagnosis - DVT left leg kb Followup: kb - With: Emergency Department - When: As needed - Reason: Worsening of condition Followup: kb - With: Private Physician - When: 2 - 3 days - Reason: Recheck today's complaints, Continuance of care, Re-evaluation by your physician Discharge Instructions: - Discharge Summary Sheet kb - Deep Vein Thrombosis kb Forms: - Medication Reconciliation Form kb - Antibiotic Education kb - Prescription Opioid Use kb - Patient Portal Instructions kb - Leadership Thank You Letter kb Signatures: Dispatcher [employer] Rosita Machado, GARY BARROSO-RADHA Workman RN RN dd2 Albino Carroll DO DO tt7
--- NOTE | 2025-03-05 22:46 | ER ---
Nurse's Notes [facility] Name: Kathe Martinez Age: 84 yrs Sex: Female : 1940 Arrival Date: 03/05/2025 Time: 20:18 Bed 25 Private MD: Diagnosis: DVT left leg Presentation: 03/05 20:45 Chief complaint: Patient states: WAS HERE MONDAY, DIAGNOSED WITH A BLOOD CLOT AND dd2 PLACED ON ELIQUIS TWICE A DAY. PT REPORTS SWELLING WORSE TODAY. Coronavirus screen: At this time, the client does not indicate any symptoms associated with coronavirus-19. Ebola Screen: No symptoms or risks identified at this time. Initial Sepsis Screen: Does the patient meet any 2 criteria? No. Patient's initial sepsis screen is negative. Does the patient have a suspected source of infection? No. Patient's initial sepsis screen is negative. Risk Assessment: Do you want to hurt yourself or someone else? Patient reports no desire to harm self or others. Onset of symptoms was March 02, 2025. 20:45 Method Of Arrival: Ambulatory dd2 20:45 Acuity: BRYANNA 3 dd2 Triage Assessment: 20:46 General: Appears in no apparent distress. uncomfortable, Behavior is calm, cooperative, dd2 appropriate for age. Pain: Complains of pain in left leg. Musculoskeletal: Swelling present in left leg. Historical: - Allergies: 20:46 Celebrex; dd2 20:46 Ibuprofen; dd2 20:46 PENICILLINS; dd2 20:46 tramadol; dd2 20:46 Tylenol; dd2 - PMHx: 20:46 Asthma; Hypertensive disorder; Hypothyroidism; dd2 - PSHx: 20:46 back; chest; eye; Brain; hernia; neck; dd2 - Immunization history:: Adult Immunizations up to date. - Infectious Disease History:: Denies. - Social history:: Smoking status: Patient denies any tobacco usage or history of. Screenin:20 [facility] ED Fall Risk Assessment (Adult) History of falling in the last 3 months, jj7 including since admission No falls in past 3 months (0 pts) Confusion or Disorientation No (0 pts) Intoxicated or Sedated No (0 pts) Impaired Gait No (0 pts) Mobility Assist Device Used No (0 pt) Altered Elimination No (0 pt) Score/Fall Risk Level 0 - 2 = Low Risk Oriented to surroundings, Maintained a safe environment, Educated pt \T\ family on fall prevention, incl call for assistance when getting out of bed, Assessed \T\ reinforced patient's understanding of fall precautions. Abuse screen: Denies threats or abuse. Nutritional screening: No deficits noted. Tuberculosis screening: No symptoms or risk factors identified. Assessment: 21:18 Reassessment: ASSUMED CARE OF PT. PT SITTING IN BED. NO DISTRESS NOTED. General: jj7 Appears in no apparent distress. comfortable, Behavior is calm, cooperative, appropriate for age. Pain: Complains of pain in left leg. Cardiovascular: Reports PAIN AND SWELLING TO LEFT LEG. Musculoskeletal: Swelling present in left leg. Vital Signs: 20:45 BP 139 / 77; Pulse 94; Resp 17; Temp 98.3; Pulse Ox 97% ; dd2 20:49 Weight 68.04 kg; Pain 4/10; dd2 21:18 BP 147 / 70; Pulse 78; Resp 20; Pulse Ox 96% ; jj7 22:30 BP 141 / 71; Pulse 73; Resp 20; Temp 98.1; Pulse Ox 96% ; jj7 20:49 Pain Scale: Adult dd2 ED Course: 20:23 Patient arrived in ED. sj2 20:42 Rosita Hunt FNP-C is PHCP. kb 20:42 Albino Carroll DO is Attending Physician. kb 20:46 Triage completed. dd2 20:46 Arm band placed on right wrist. dd2 21:18 Litzy Talbot, RN is Primary Nurse. jj7 21:20 Patient has correct armband on for positive identification. Bed in low position. Call jj7 light in reach. Side rails up X2. Adult w/ patient. Client placed on continuous cardiac and pulse oximetry monitoring. NIBP monitoring applied. Warm blanket given. 21:20 Provided Education on: USE OF CALL WIN. jj7 21:58 US Extremity Venous Unilateral Ltd In Process Unspecified. EDMS 22:51 No provider procedures requiring assistance completed. Patient did not have IV access jj7 during this emergency room visit. Administered Medications: No medications were administered Medication: 21:20 VIS not applicable for this client. jj7 Outcome: 22:45 Discharge ordered by . kb 22:51 Discharged to home ambulatory, with family, jj7 22:51 Condition: good 22:51 Discharge instructions given to patient, Instructed on discharge instructions, follow up and referral plans. Demonstrated understanding of instructions, follow-up care, 22:52 Patient left the ED. jj7 Signatures: Dispatcher [employer] EDRosita Camargo, PIGGERY WORKER-C DHARMESH-Litzy López RN RN jj7 RADHA ADAMES RN RN dd2 Chris Robles2
[2025-03-05 23:00] VITALS: O2SAT 96
[2025-03-05 23:01] VITALS: BP 141/71; TEMP 98.1
== END 2025-03-05 22:52 | disposition home or self-care (01) ==
LOC: ER 20:18
DX: I82.402 Acute embolism and thrombosis of unspecified deep veins of left lower extremity (principal); I10 Essential (primary) hypertension; E03.9 Hypothyroidism, unspecified; J45.909 Unspecified asthma, uncomplicated; Z79.01 Long term (current) use of anticoagulants; Z88.0 Allergy status to penicillin; Z88.6 Allergy status to analgesic agent
CPT/HCPCS: 93971; 99283